=== PATIENT | male | born 1955 | race Caucasian/White ===

== ENCOUNTER 2017-03-31 19:20 | Emergency (ER) | payer OTHER ==
[~2017-03-31] VITALS: Ht 177.8 cm; Wt 84.1 kg
[~2017-03-31 19:20] MED LIST: ASPI81TA28 PO; ENAL1TAB29 PO; PRAV20TA PO
[2017-03-31 19:26] VITALS: TEMP 36.6; Ht 177.8 cm; Wt 84.1 kg
[2017-03-31] MEDS ORDERED: KETOROLAC TROMETHAMINE 30 MG/ML VIAL IV STA (19:37)
[2017-03-31] MEDS ORDERED: SODIUM CHLORIDE 0.9% 1000ML 1,000 ML IV STA (19:37)
[2017-03-31 19:44] VITALS: O2SAT 96
[2017-03-31 19:50] LABS: COMPLETE YES; EOS % 1.7 %; HEMATOCRIT 40.7 % (42-52); LYMPH % 36.3 %; LYMPH ABS # 1.67 K/uL (1.2-3.4); MEAN CELL VOLUME 94.7 fL (80-100); MEAN CORPUSCULAR HEMOGLOBIN 32.3 pg (25-34); MEAN CORPUSCULAR HGB CONC 34.2 g/dl (32-36); MONO % 7.8 %; NEUT % 54.2 %; PLATELET COUNT 188 K/uL (130-400)
--- NOTE | 2017-03-31 19:53 | EMERGENCY ROOM VISIT NOTE ---
History Report prepared by Joslyn: Perla Nelson Under the Supervision of: Dr. Rajan Kerns M.D. First contact with patient: 19:22 Chief Complaint: CHEST PAIN Stated Complaint: CHEST PAIN Nursing Triage Summary: cp "sharp radiate to forehead starting at 1530" baby asa at 1830, 3 doses senior living ntg . 1 ntg per als. no change in pain. denies cardiac hx. pain was in middle of chest "jaggy". on palpation most discomfort is left abd History of Present Illness The patient is a 61 year old male who presents to the Emergency Room with complaints of constant central chest pain for the past 4 hours. He describes his pain as sharp and rates it as a 5/10 in severity. It is not worsened with taking a deep breath. The patient is also complaining of shortness of breath, cough, and headache. He received aspirin and nitro at the senior living [facility] and did not have any relief of his chest pain. The patient denies any significant cardiac history. He also denies fever, nausea, vomiting, diarrhea, and pain radiating into his arm or jaw. He denies recent cold symptoms. Source of History: patient Onset: 4 hours [facility] Position: chest Symptom Intensity: 5/10 Quality: sharp Timing: constant Associated Symptoms: + headache, + cough, + SOB, No fevers, No nausea, No vomiting, No diarrhea Review of Systems See HPI for pertinent positives & negatives. A total of 10 systems reviewed and were otherwise negative. Past Medical & Surgical Medical Problems: (1) Diabetes (2) Hyperlipidemia Family History Patient reports no known family medical history. Social History Smoking Status: Current Every Day Smoker Housing Status: other (incarcerated) Occupation Status: unemployed Current/Historical Medications No Active Prescriptions or Reported Meds Allergies Uncoded Allergies: WOOL (Allergy, Unknown, UNKNOWN, 03/31/17) Physical Exam Vital Signs Date Time Temp Pulse Resp B/P (MAP) Pulse Ox O2 Delivery O2 Flow Rate FiO2 03/31/17 20:42 48 18 127/72 97 Room Air 03/31/17 19:44 96 Room Air 03/31/17 19:31 48 03/31/17 19:26 36.6 75 18 121/80 96 Room Air 03/31/17 19:19 94 Room Air Physical Exam GENERAL: Patient is a healthy-appearing well-nourished male. HEAD: Normocephalic atraumatic EYES: Ocular movements intact pupils equal and react to light OROPHARYNX mucous membranes are moist no exudates present no erythema or edema present NECK: Supple no nuchal rigidity CHEST: Good equal expansion. Exquisitely tender to the 9th and 10th left rib area. LUNGS: Clear and equal to auscultation CARDIAC: Normal S1 and S2 ABDOMEN: Soft nontender no guarding BACK: No CVA tenderness EXTREMITIES: No pain upon palpation normal muscle strength in all groups no clubbing cyanosis or edema NEURO: Patient is following commands and answering questions appropriately. Alert and oriented x3 Cranial Nerves 2-12 grossly intact Medical Decision & Procedures ER Provider Diagnostic Interpretation: Radiology results as stated below per my review and radiologist interpretation: CHEST ONE VIEW PORTABLE CLINICAL HISTORY: CHEST PAIN COMPARISON STUDY: No previous studies for comparison. FINDINGS: The bones soft tissues and hemidiaphragms are normal. The cardiomediastinal silhouette is normal. The lungs are clear. The pulmonary vasculature is normal. IMPRESSION: Negative chest. Electronically signed by: Rom Aguero M.D. 03/31/2017 8:04 PM Dictated Date/Time: 03/31/2017 8:04 PM Laboratory Results 03/31/17 19:30 Red Blood Count 4.30, Mean Corpuscular Volume 94.7, Mean Corpuscular Hemoglobin 32.3, Mean Corpuscular Hemoglobin Concent 34.2, Mean Platelet Volume 10.0, Neutrophils (%) (Auto) 54.2, Lymphocytes (%) (Auto) 36.3, Monocytes (%) (Auto) 7.8, Eosinophils (%) (Auto) 1.7, Basophils (%) (Auto) 0.0, Neutrophils # (Auto) 2.49, Lymphocytes # (Auto) 1.67, Monocytes # (Auto) 0.36, Eosinophils # (Auto) 0.08, Basophils # (Auto) 0.00 03/31/17 19:30 Test 03/31/17 19:30 White Blood Count 4.60 K/uL (4.8-10.8) Red Blood Count 4.30 M/uL (4.7-6.1) Hemoglobin 13.9 g/dL (14.0-18.0) Hematocrit 40.7 % (42-52) Mean Corpuscular Volume 94.7 fL (80-100) Mean Corpuscular Hemoglobin 32.3 pg (25-34) Mean Corpuscular Hemoglobin Concent 34.2 g/dl (32-36) Platelet Count 188 K/uL (130-400) Mean Platelet Volume 10.0 fL (7.4-10.4) Neutrophils (%) (Auto) 54.2 % Lymphocytes (%) (Auto) 36.3 % Monocytes (%) (Auto) 7.8 % Eosinophils (%) (Auto) 1.7 % Basophils (%) (Auto) 0.0 % Neutrophils # (Auto) 2.49 K/uL (1.4-6.5) Lymphocytes # (Auto) 1.67 K/uL (1.2-3.4) Monocytes # (Auto) 0.36 K/uL (0.11-0.59) Eosinophils # (Auto) 0.08 K/uL (0-0.5) Basophils # (Auto) 0.00 K/uL (0-0.2) RDW Standard Deviation 45.8 fL (36.4-46.3) RDW Coefficient of Variation 13.3 % (11.5-14.5) Immature Granulocyte % (Auto) 0.0 % Immature Granulocyte # (Auto) 0.00 K/uL (0.00-0.02) Anion Gap 10.0 mmol/L (3-11) Est Creatinine Clear Calc Drug Dose 82.1 ml/min Estimated GFR () 95.1 Estimated GFR (Non- 82.0 BUN/Creatinine Ratio 16.9 (10-20) Calcium Level 8.8 mg/dl (8.5-10.1) Total Bilirubin 0.2 mg/dl (0.2-1) Direct Bilirubin < 0.1 mg/dl (0-0.2) Aspartate Amino Transf (AST/SGOT) 19 U/L (15-37) Alanine Aminotransferase (ALT/SGPT) 25 U/L (12-78) Alkaline Phosphatase 58 U/L (45-117) Total Creatine Kinase 135 U/L (39-308) Creatine Kinase MB 1.0 ng/ml (0.5-3.6) Creatine Kinase MB Ratio 0.7 (0-3.0) Troponin I < 0.015 ng/ml (0-0.045) Total Protein 6.7 gm/dl (6.4-8.2) Albumin 3.9 gm/dl (3.4-5.0) Lipase 386 U/L (73-393) Labs reviewed by ED physician. Medications Administered Medications (Trade) Dose Ordered Sig/Leah Route Start Time Stop Time Status Last Admin Dose Admin Sodium Chloride 1,000 ml @ 999 mls/hr Q1H1M STAT IV 03/31/17 19:37 03/31/17 20:37 DC 03/31/17 19:52 999 MLS/HR Ketorolac Tromethamine (Toradol Inj) 30 mg NOW STAT IV 03/31/17 19:37 03/31/17 19:38 DC 03/31/17 19:52 30 MG ECG Indication: chest pain Rate (beats per minute): 47 Rhythm: sinus bradycardia Findings: no acute ischemic change, no ectopy ED Course 1921: Past medical records reviewed. The patient was evaluated in room B6. A complete history and physical examination was performed. 1936: Toradol 30 mg IV, NSS 1000 ml @ 999 mls/hr IV 2031: I reassessed the patient at this time. He is feeling better and resting comfortably. He is no longer having pain. I discussed the results and treatment plan with the patient. I answered all pertaining questions that he had. He expressed understanding and verbalized agreement. The patient will be discharged back to the senior living. Medical Decision Differential diagnosis: Etiologies such as cardiac ischemia, aortic dissection, pulmonary embolism, pneumonia, pneumothorax, musculoskeletal, infections, pericarditis, myocarditis , esophageal rupture, gastrointestinal, as well as others were entertained. Medication Reconciliation: I attest that I have personally reviewed the patient' s current medication list. Blood Pressure Screening: Patient was found to have normal blood pressure on screening and does not require follow up. This is a 61-year-old male who presents to the emergency department complaining of left chest wall pain. The patient is exquisitely tender to the left chest wall and I do believe his pain is coming from his ribs. In addition the patient was given nitroglycerin with no effect of the chest pain. He also has a normal EKG as well as CK-MB and troponin fraction. Based on these findings I do believe that the patient can return back to senior living where he can be further evaluated by cardiology as an outpatient. Patient and caretakers were in agreement with the treatment plan. Impression Primary Impression: Chest wall pain Scribe Attestation The scribe's documentation has been prepared under my direction and personally reviewed by me in its entirety. I confirm that the note above accurately reflects all work, treatment, procedures, and medical decision making performed by me. Departure Information Dispostion Home / Self-Care Prescriptions No Active Prescriptions or Reported Meds Referrals Devin PAEZ (PCP) Forms HOME CARE DOCUMENTATION FORM, IMPORTANT VISIT INFORMATION Patient Instructions Chest Pain - [facility], My [facility] Additional Instructions Follow up with Dr Mathis's office You have been examined and treated today on an emergency basis only. This is not a substitute for, or an effort to provide, complete comprehensive medical care. It is impossible to recognize and treat all injuries or illnesses in a single emergency department visit. It is therefore important that you follow up closely with your PCP. Call as soon as possible for an appointment. Thank you for your time and consideration. I look forward to speaking with you again soon. Please don't hesitate to call us if you have any questions.
--- NOTE | 2017-03-31 20:05 | DIAGNOSTIC IMAGING REPORT ---
CHEST ONE VIEW PORTABLE CLINICAL HISTORY: CHEST PAIN COMPARISON STUDY: No previous studies for comparison. FINDINGS: The bones soft tissues and hemidiaphragms are normal. The cardiomediastinal silhouette is normal. The lungs are clear. The pulmonary vasculature is normal. IMPRESSION: Negative chest. Electronically signed by: Rom Aguero M.D. 03/31/2017 8:04 PM Dictated Date/Time: 03/31/2017 8:04 PM
[2017-03-31 20:20] LABS: ALT/SGPT 25 U/L (12-78); BLOOD UREA NITROGEN 17 mg/dl (7-18); BUN/CREATININE RATIO 16.9 (10-20); CALCIUM 8.8 mg/dl (8.5-10.1); CARBON DIOXIDE 24 mmol/L (21-32); CHLORIDE 111 mmol/L (98-107); GLUCOSE 104 mg/dl (70-99); POTASSIUM 4.2 mmol/L (3.5-5.1); SODIUM 145 mmol/L (136-145)
[2017-03-31 20:25] LABS: ALKALINE PHOSPHATASE 58 U/L (45-117); AST/SGOT 19 U/L (15-37); CKMB/CK RATIO 0.7 (0-3.0)
[2017-03-31 20:42] VITALS: BP 127/72; PULSE 48; O2SAT 97
== END 2017-03-31 20:52 ==
LOC: EDBD 19:20 → C.EDB 19:20
DX: R07.89 Other chest pain (principal); E11.9 Type 2 diabetes mellitus without complications; E78.5 Hyperlipidemia, unspecified; F17.210 Nicotine dependence, cigarettes, uncomplicated; R51 Headache; R05 Cough

== ENCOUNTER 2020-05-06 11:10 | Inpatient (IN) ==
[2020-05-06] MEDS ORDERED: SODIUM CHLORIDE 0.9% 1000ML 1,000 ML IV ONE ×2 (11:30→12:11)
--- NOTE | 2020-05-06 11:30 | Emergency Department Note ---
Impression & Plan Catheter-associated urinary tract infection, Abdominal pain, Fever ED Provider Note NAME: VANDANA [id number] MANOJ AGE: 64 SEX: M : 1955 ARRIVES VIA: Ambulance INFORMANT: Patient, ED PROVIDER(S): Nicolas Stover DO CHIEF COMPLAINT: Abdominal pain HPI: The patient is a 64-year-old male who presented to the emergency department for an evaluation of abdominal pain. The patient describes diffuse abdominal pain which started yesterday. He was noted to have a low-grade fever today. He complains of chest pain. He states the abdominal pain radiates to his back. He denies having any vomiting but does have nausea. He denies having any lower extremity pain. He states that he has had similar symptoms in the past with very bad urinary tract infections. He states that his Gutierrez catheter was recently changed. He denies having any headaches. He denies having any cough. He has had no exposure of COVID-19 but he presents to the emergency department from [facility]. ROS: See above HPI for pertinent positives & negatives. A total of 10 systems reviewed and were otherwise negative. PAST MEDICAL HISTORY: See Below PAST SURGICAL HISTORY: See Below FAMILY HISTORY: See Below SOCIAL HISTORY: See Below HOME MEDICATIONS: See Below ALLERGIES: See Below VITALS: See Below PHYSICAL EXAMINATION: GENERAL: The patient is awake and alert. He is somewhat anxious appearing and appears uncomfortable. EYES: The conjunctivae are clear. The pupils are round and reactive. EARS, NOSE, MOUTH AND THROAT: The nose is without any evidence of any deformity. NECK: The neck is nontender and supple. RESPIRATORY: Normal respiratory effort is noted there is no evidence of wheezing rhonchi or rales CARDIOVASCULAR: Regular rate and rhythm noted there no murmurs rubs or gallops normal S1 normal S2. GASTROINTESTINAL: The abdomen is moderately distended and diffusely tender. There is suprapubic tenderness to palpation. BACK: No midline tenderness or or step-off noted range of motion in flexion extension as well as rotation no signs of muscle spasm noted MUSCULOSKELETAL/EXTREMITIES: There is no evidence of gross deformity full range of motion is noted in the hips and shoulders. SKIN: Trace pedal edema was noted bilaterally. NEUROLOGIC: Patient is awake alert and oriented x3 strength is symmetric patellar reflexes are 2+ bilaterally MEDICAL DECISION MAKING: The patient is a 64-year-old male who presented to the emergency department for an evaluation of abdominal pain. The patient has a chronic indwelling Gutierrez catheter. He had some urine draining reportedly but bladder scan did show that the patient was in urinary retention. When the catheter was replaced he did have significant urinary retention. Urinalysis appeared to be consistent with infection. A review the patient's previous urine culture does show he grew out Pseudomonas with intermittent sensitivities to quinolones. For this reason I feel he may require IV antibiotics. He was treated with IV Zosyn in the emergency department. He was treated with IV fluids and pain medication. I discussed the patient's laboratory and radiographic studies with him. I also discussed his case with the on-call [facility] [place] Divisionist group. They have agreed to evaluate the patient in the emergency department for further management and disposition. Triage Nursing notes reviewed. Prior medical records reviewed Vital Signs: reviewed and remarkable for fever Differential diagnosis: Appendicitis, testicular torsion, infections, diverticulitis, UTI, obstruction, mesenteric ischemia, aortic pathology, inflammatory bowel disease, renal colic, PUD, pancreatitis, biliary pathology, hernia, volvulus, constipation, as well as other pathologies. ER treatment provided: See below Diagnostics interpreted by me: ECG: EKG was obtained in the emergency department. My interpretation is normal sinus rhythm at 97 bpm. There is no ectopy. There is no acute ST segment abnormalities. There is an increase in the ventricular rate otherwise no change from November [id number]. Cardiac Monitoring: An order was placed for continuous cardiac monitoring. The monitor shows a rate of 88 with sinus rhythm. Laboratory studies: As stated above and show below. Imaging studies: See below Consultation(s): I discussed this case with Dr. Najera. She was on-call for the [facility] hospitalist group. She will evaluate the patient in the emergency department for further management and disposition. Past Med/Surg History Medical History (Updated 05/06/20 @ 17:07 by Nicolas Stover DO) Chest pain (Acute) Diabetes (Chronic) HTN (hypertension), benign Hyperlipidemia (Chronic) Major depressive disorder Pulmonary nodules Urinary retention Surgical History No pertinent past surgical history Family History Sister Diabetes Hypertension Brother Hypertension Father Nephrolithiasis Lung disease Other No pertinent family history in first degree relatives Social History Smoking Status: Former smoker Preferred Language: Tanzanian Feels Safe at Home: Yes Allergies Allergies Allergy/AdvReac Type Severity Reaction Status Date / Time WOOL Allergy Unknown UNKNOWN Uncoded 05/06/20 11:53 Home Meds Home Medications Medication Instructions Recorded Confirmed duloxetine 30 mg PO QAM 12/17/18 05/06/20 duloxetine 60 mg PO QAM 12/17/18 05/06/20 finasteride 5 mg PO DAILY 11/11/19 05/06/20 lisinopril 10 mg PO DAILY 05/06/20 05/06/20 Results & Data (ED) Vital Signs Vital Signs - 24 hr 05/06/20 11:15 05/06/20 11:18 05/06/20 11:19 Temperature 38.0 C H Temperature Source Oral Pulse Rate 96 H 100 H 97 H Pulse Rate from SpO2 Sensor 101 H 96 H Pulse Rhythm Regular Pulse Strength Normal Respiratory Rate 31 H 21 26 H Respiratory Effort / Characteristics Non-Labored Spontaneous Respiratory Depth Normal Respiratory Pattern Regular Blood Pressure 113/68 116/86 Blood Pressure Mean 83 99 Blood Pressure Position Lying Pulse Oximetry 97 96 97 Oxygen Delivery Method Room Air Room Air Room Air Sepsis Recent Fever Within 48 Hours Yes Sepsis New/Unexplained Change in Mental Status No Sepsis Action Taken by Nursing No Action Required 05/06/20 11:20 05/06/20 11:30 05/06/20 11:38 Temperature Temperature Source Pulse Rate 106 H 101 H 96 H Pulse Rate from SpO2 Sensor 104 H 102 H 97 H Pulse Rhythm Pulse Strength Respiratory Rate 22 24 27 H Respiratory Effort / Characteristics Respiratory Depth Respiratory Pattern Blood Pressure 133/80 Blood Pressure Mean 90 Blood Pressure Position Pulse Oximetry 96 95 94 Oxygen Delivery Method Room Air Room Air Room Air Sepsis Recent Fever Within 48 Hours Sepsis New/Unexplained Change in Mental Status Sepsis Action Taken by Nursing 05/06/20 11:40 05/06/20 11:45 05/06/20 11:50 Temperature Temperature Source Pulse Rate 94 H 96 H 95 H Pulse Rate from SpO2 Sensor 94 H 96 H 95 H Pulse Rhythm Pulse Strength Respiratory Rate 22 24 23 Respiratory Effort / Characteristics Respiratory Depth Respiratory Pattern Blood Pressure 145/80 H Blood Pressure Mean 96 Blood Pressure Position Pulse Oximetry 96 94 94 Oxygen Delivery Method Room Air Room Air Room Air Sepsis Recent Fever Within 48 Hours Sepsis New/Unexplained Change in Mental Status Sepsis Action Taken by Nursing 05/06/20 12:00 05/06/20 12:01 05/06/20 12:10 Temperature Temperature Source Pulse Rate 91 H 92 H 91 H Pulse Rate from SpO2 Sensor 91 H 92 H 92 H Pulse Rhythm Pulse Strength Respiratory Rate 24 24 23 Respiratory Effort / Characteristics Respiratory Depth Respiratory Pattern Blood Pressure 138/73 Blood Pressure Mean 91 Blood Pressure Position Pulse Oximetry 94 95 94 Oxygen Delivery Method Room Air Room Air Room Air Sepsis Recent Fever Within 48 Hours Sepsis New/Unexplained Change in Mental Status Sepsis Action Taken by Nursing 05/06/20 12:15 05/06/20 12:20 05/06/20 12:30 Temperature Temperature Source Pulse Rate 92 H 89 90 Pulse Rate from SpO2 Sensor 92 H 89 90 Pulse Rhythm Pulse Strength Respiratory Rate 22 21 19 Respiratory Effort / Characteristics Respiratory Depth Respiratory Pattern Blood Pressure 140/70 127/74 Blood Pressure Mean 84 79 Blood Pressure Position Pulse Oximetry 95 94 93 Oxygen Delivery Method Room Air Room Air Room Air Sepsis Recent Fever Within 48 Hours Sepsis New/Unexplained Change in Mental Status Sepsis Action Taken by Nursing 05/06/20 12:31 05/06/20 12:52 05/06/20 13:00 Temperature Temperature Source Pulse Rate 91 H 89 91 H Pulse Rate from SpO2 Sensor 92 H 92 H Pulse Rhythm Pulse Strength Respiratory Rate 19 17 19 Respiratory Effort / Characteristics Respiratory Depth Respiratory Pattern Blood Pressure 117/66 Blood Pressure Mean 81 Blood Pressure Position Pulse Oximetry 93 93 Oxygen Delivery Method Room Air Room Air Room Air Sepsis Recent Fever Within 48 Hours Sepsis New/Unexplained Change in Mental Status Sepsis Action Taken by Nursing 05/06/20 13:01 05/06/20 13:10 05/06/20 13:15 Temperature Temperature Source Pulse Rate 92 H 89 91 H Pulse Rate from SpO2 Sensor 92 H 89 91 H Pulse Rhythm Pulse Strength Respiratory Rate 19 18 20 Respiratory Effort / Characteristics Respiratory Depth Respiratory Pattern Blood Pressure 121/65 Blood Pressure Mean 84 Blood Pressure Position Pulse Oximetry 93 93 94 Oxygen Delivery Method Room Air Room Air Room Air Sepsis Recent Fever Within 48 Hours Sepsis New/Unexplained Change in Mental Status Sepsis Action Taken by Nursing 05/06/20 13:20 05/06/20 13:30 05/06/20 13:31 Temperature Temperature Source Pulse Rate 88 89 88 Pulse Rate from SpO2 Sensor 88 89 88 Pulse Rhythm Pulse Strength Respiratory Rate 17 16 16 Respiratory Effort / Characteristics Respiratory Depth Respiratory Pattern Blood Pressure 108/77 Blood Pressure Mean 97 Blood Pressure Position Pulse Oximetry 94 94 93 Oxygen Delivery Method Room Air Room Air Room Air Sepsis Recent Fever Within 48 Hours Sepsis New/Unexplained Change in Mental Status Sepsis Action Taken by Nursing 05/06/20 13:40 05/06/20 13:45 05/06/20 13:50 Temperature Temperature Source Pulse Rate 85 84 89 Pulse Rate from SpO2 Sensor Pulse Rhythm Pulse Strength Respiratory Rate 17 18 21 Respiratory Effort / Characteristics Respiratory Depth Respiratory Pattern Blood Pressure 114/66 Blood Pressure Mean 80 Blood Pressure Position Pulse Oximetry Oxygen Delivery Method Room Air Room Air Room Air Sepsis Recent Fever Within 48 Hours Sepsis New/Unexplained Change in Mental Status Sepsis Action Taken by Nursing 05/06/20 14:00 05/06/20 14:01 05/06/20 14:10 Temperature Temperature Source Pulse Rate 84 85 83 Pulse Rate from SpO2 Sensor 88 83 83 Pulse Rhythm Pulse Strength Respiratory Rate 19 18 16 Respiratory Effort / Characteristics Respiratory Depth Respiratory Pattern Blood Pressure 101/68 Blood Pressure Mean 82 Blood Pressure Position Pulse Oximetry 95 Oxygen Delivery Method Room Air Room Air Room Air Sepsis Recent Fever Within 48 Hours Sepsis New/Unexplained Change in Mental Status Sepsis Action Taken by Nursing 05/06/20 14:15 05/06/20 14:20 05/06/20 14:30 Temperature Temperature Source Pulse Rate 87 83 82 Pulse Rate from SpO2 Sensor 87 83 83 Pulse Rhythm Pulse Strength Respiratory Rate 15 15 15 Respiratory Effort / Characteristics Respiratory Depth Respiratory Pattern Blood Pressure 102/69 108/68 Blood Pressure Mean 83 90 Blood Pressure Position Pulse Oximetry 95 94 94 Oxygen Delivery Method Room Air Room Air Room Air Sepsis Recent Fever Within 48 Hours Sepsis New/Unexplained Change in Mental Status Sepsis Action Taken by Nursing 05/06/20 14:31 05/06/20 14:40 05/06/20 14:45 Temperature Temperature Source Pulse Rate 83 85 85 Pulse Rate from SpO2 Sensor 84 86 86 Pulse Rhythm Pulse Strength Respiratory Rate 14 15 17 Respiratory Effort / Characteristics Respiratory Depth Respiratory Pattern Blood Pressure 119/75 Blood Pressure Mean 94 Blood Pressure Position Pulse Oximetry 95 93 94 Oxygen Delivery Method Room Air Room Air Room Air Sepsis Recent Fever Within 48 Hours Sepsis New/Unexplained Change in Mental Status Sepsis Action Taken by Nursing 05/06/20 14:50 05/06/20 15:00 05/06/20 15:01 Temperature Temperature Source Pulse Rate 89 89 93 H Pulse Rate from SpO2 Sensor 90 89 100 H Pulse Rhythm Pulse Strength Respiratory Rate 27 H 15 17 Respiratory Effort / Characteristics Respiratory Depth Respiratory Pattern Blood Pressure 116/70 Blood Pressure Mean 82 Blood Pressure Position Pulse Oximetry 94 94 94 Oxygen Delivery Method Room Air Room Air Room Air Sepsis Recent Fever Within 48 Hours Sepsis New/Unexplained Change in Mental Status Sepsis Action Taken by Nursing 05/06/20 15:10 05/06/20 15:15 05/06/20 15:35 Temperature Temperature Source Pulse Rate 89 93 H 84 Pulse Rate from SpO2 Sensor 89 93 H Pulse Rhythm Pulse Strength Respiratory Rate 16 21 21 Respiratory Effort / Characteristics Respiratory Depth Respiratory Pattern Blood Pressure 125/71 Blood Pressure Mean 90 Blood Pressure Position Pulse Oximetry 95 94 Oxygen Delivery Method Room Air Room Air Room Air Sepsis Recent Fever Within 48 Hours Sepsis New/Unexplained Change in Mental Status Sepsis Action Taken by Nursing 05/06/20 15:37 05/06/20 15:40 05/06/20 15:45 Temperature Temperature Source Pulse Rate 78 85 77 Pulse Rate from SpO2 Sensor 78 84 78 Pulse Rhythm Pulse Strength Respiratory Rate 21 20 16 Respiratory Effort / Characteristics Respiratory Depth Respiratory Pattern Blood Pressure 117/74 103/68 Blood Pressure Mean 82 83 Blood Pressure Position Pulse Oximetry 96 94 93 Oxygen Delivery Method Room Air Room Air Room Air Sepsis Recent Fever Within 48 Hours Sepsis New/Unexplained Change in Mental Status Sepsis Action Taken by Nursing 05/06/20 15:50 05/06/20 16:00 05/06/20 16:01 Temperature Temperature Source Pulse Rate 81 76 79 Pulse Rate from SpO2 Sensor 81 75 80 Pulse Rhythm Pulse Strength Respiratory Rate 17 17 15 Respiratory Effort / Characteristics Respiratory Depth Respiratory Pattern Blood Pressure 128/70 Blood Pressure Mean 78 Blood Pressure Position Pulse Oximetry 94 94 94 Oxygen Delivery Method Room Air Room Air Room Air Sepsis Recent Fever Within 48 Hours Sepsis New/Unexplained Change in Mental Status Sepsis Action Taken by Nursing 05/06/20 16:10 05/06/20 16:15 05/06/20 16:20 Temperature Temperature Source Pulse Rate 79 79 78 Pulse Rate from SpO2 Sensor 83 79 77 Pulse Rhythm Pulse Strength Respiratory Rate 15 15 19 Respiratory Effort / Characteristics Respiratory Depth Respiratory Pattern Blood Pressure 114/75 Blood Pressure Mean 96 Blood Pressure Position Pulse Oximetry 96 94 94 Oxygen Delivery Method Room Air Room Air Room Air Sepsis Recent Fever Within 48 Hours Sepsis New/Unexplained Change in Mental Status Sepsis Action Taken by Nursing 05/06/20 16:30 05/06/20 16:31 05/06/20 16:40 Temperature Temperature Source Pulse Rate 76 79 79 Pulse Rate from SpO2 Sensor 78 79 79 Pulse Rhythm Pulse Strength Respiratory Rate 15 16 14 Respiratory Effort / Characteristics Respiratory Depth Respiratory Pattern Blood Pressure 120/68 Blood Pressure Mean 82 Blood Pressure Position Pulse Oximetry 94 95 95 Oxygen Delivery Method Room Air Room Air Room Air Sepsis Recent Fever Within 48 Hours Sepsis New/Unexplained Change in Mental Status Sepsis Action Taken by Nursing 05/06/20 16:45 05/06/20 16:48 05/06/20 16:50 Temperature Temperature Source Pulse Rate 78 88 Pulse Rate from SpO2 Sensor 78 87 Pulse Rhythm Pulse Strength Respiratory Rate 15 19 Respiratory Effort / Characteristics Respiratory Depth Respiratory Pattern Blood Pressure 112/69 Blood Pressure Mean 81 Blood Pressure Position Pulse Oximetry 95 91 Oxygen Delivery Method Room Air Room Air Room Air Sepsis Recent Fever Within 48 Hours Sepsis New/Unexplained Change in Mental Status Sepsis Action Taken by [facility] Medications Current Medication List: was personally reviewed by me Laboratory Data Attestation: I reviewed the patient's lab results. Result diagrams: 05/06/20 11:32 05/06/20 11:32 Lab Results 05/06/20 05/06/20 05/06/20 Range/Units 11:32 11:32 11:32 WBC (4.8-10.8) K/uL RBC (4.7-6.1) M/uL Hgb (14.0-18.0) g/dL Hct (42-52) % MCV (80-100) fL MCH (25-34) pg MCHC (32-36) g/dL RDW Std Deviation (36.4-46.3) fL RDW Coeff of Osmin (11.5-14.5) % Plt Count (130-400) K/uL MPV (7.4-10.4) fL Immature Gran % (Auto) % Neut % (Auto) % Lymph % (Auto) % King % (Auto) % Eos % (Auto) % Baso % (Auto) % Neut # (Auto) (1.4-6.5) K/uL Lymph # (Auto) (1.2-3.4) K/uL King # (Auto) (0.11-0.59) K/uL Eos # (Auto) (0-0.5) K/uL Baso # (Auto) (0-0.2) K/uL Immature Gran # (Auto) (0.00-0.02) K/uL ESR 16 H (0-14) mm/hr PT (9.0-12.0) Seconds INR (0.9-1.1) APTT (21.0-31.0) Seconds PTT Ratio Sodium 130 L (136-145) mmol/L Potassium 4.3 (3.5-5.1) mmol/L Chloride 100 (98-107) mmol/L Carbon Dioxide 21 (21-32) mmol/L Anion Gap 9.0 (3-11) BUN 17 (7-18) mg/dl Creatinine 1.83 H (0.6-1.4) mg/dl Est Cr Clr Drug Dosing 51.3 ml/min Est GFR ( Amer) 44.8 Est GFR (Non-Af Amer) 38.7 BUN/Creatinine Ratio 9.5 L (10-20) Glucose 117 H (70-99) mg/dl Lactate (0.4-2.0) mmol/L Calcium 8.8 (8.5-10.1) mg/dl Magnesium 1.9 (1.8-2.4) mg/dl Total Bilirubin 0.7 (0.2-1) mg/dl AST 18 (15-37) U/L ALT 23 (12-78) U/L Alkaline Phosphatase 67 (45-117) U/L Troponin I < 0.015 (0-0.045) ng/ml C-Reactive Protein 5.37 H (0-0.29) mg/dl Total Protein 7.4 (6.4-8.2) gm/dl Albumin 3.5 (3.4-5.0) gm/dl Globulin 3.9 (2.5-4.0) gm/dl Albumin/Globulin Ratio 0.9 (0.9-2) Procalcitonin 0.36 (0-0.5) ng/ml Urine Color Urine Appearance (Clear) Urine pH (4.5-7.5) Ur Specific Randolph (1.000-1.030) Urine Protein (Negative) Urine Glucose (UA) (Negative) Urine Ketones (Negative) Urine Blood (Negative) Urine Nitrite (Negative) Urine Bilirubin (Negative) Urine Urobilinogen (Negative) Ur Leukocyte Esterase (Negative) Urine WBC (Auto) (0-5) /hpf Urine RBC (Auto) (0-4) /hpf U Hyaline Cast (Auto) (0-5) /lpf U Epithel Cells (Auto) (0-5) /lpf Urine Bacteria (Auto) (Negative) COVID-19 PCR (Negative) 05/06/20 05/06/20 05/06/20 Range/Units 11:32 11:32 11:32 WBC 9.67 (4.8-10.8) K/uL RBC 3.96 L (4.7-6.1) M/uL Hgb 12.6 L (14.0-18.0) g/dL Hct 36.8 L (42-52) % MCV 92.9 (80-100) fL MCH 31.8 (25-34) pg MCHC 34.2 (32-36) g/dL RDW Std Deviation 46.3 (36.4-46.3) fL RDW Coeff of Osmin 13.6 (11.5-14.5) % Plt Count 213 (130-400) K/uL MPV 8.9 (7.4-10.4) fL Immature Gran % (Auto) 0.2 % Neut % (Auto) 95.4 % Lymph % (Auto) 3.3 % King % (Auto) 1.0 % Eos % (Auto) 0.0 % Baso % (Auto) 0.1 % Neut # (Auto) 9.22 H (1.4-6.5) K/uL Lymph # (Auto) 0.32 L (1.2-3.4) K/uL King # (Auto) 0.10 L (0.11-0.59) K/uL Eos # (Auto) 0.00 (0-0.5) K/uL Baso # (Auto) 0.01 (0-0.2) K/uL Immature Gran # (Auto) 0.02 (0.00-0.02) K/uL ESR (0-14) mm/hr PT 10.5 (9.0-12.0) Seconds INR 1.0 (0.9-1.1) APTT 25.0 (21.0-31.0) Seconds PTT Ratio 0.9 Sodium (136-145) mmol/L Potassium (3.5-5.1) mmol/L Chloride (98-107) mmol/L Carbon Dioxide (21-32) mmol/L Anion Gap (3-11) BUN (7-18) mg/dl Creatinine (0.6-1.4) mg/dl Est Cr Clr Drug Dosing ml/min Est GFR ( Amer) Est GFR (Non-Af Amer) BUN/Creatinine Ratio (10-20) Glucose (70-99) mg/dl Lactate 1.8 (0.4-2.0) mmol/L Calcium (8.5-10.1) mg/dl Magnesium (1.8-2.4) mg/dl Total Bilirubin (0.2-1) mg/dl AST (15-37) U/L ALT (12-78) U/L Alkaline Phosphatase (45-117) U/L Troponin I (0-0.045) ng/ml C-Reactive Protein (0-0.29) mg/dl Total Protein (6.4-8.2) gm/dl Albumin (3.4-5.0) gm/dl Globulin (2.5-4.0) gm/dl Albumin/Globulin Ratio (0.9-2) Procalcitonin (0-0.5) ng/ml Urine Color Urine Appearance (Clear) Urine pH (4.5-7.5) Ur Specific Randolph (1.000-1.030) Urine Protein (Negative) Urine Glucose (UA) (Negative) Urine Ketones (Negative) Urine Blood (Negative) Urine Nitrite (Negative) Urine Bilirubin (Negative) Urine Urobilinogen (Negative) Ur Leukocyte Esterase (Negative) Urine WBC (Auto) (0-5) /hpf Urine RBC (Auto) (0-4) /hpf U Hyaline Cast (Auto) (0-5) /lpf U Epithel Cells (Auto) (0-5) /lpf Urine Bacteria (Auto) (Negative) COVID-19 PCR (Negative) 05/06/20 05/06/20 Range/Units 11:35 13:35 WBC (4.8-10.8) K/uL RBC (4.7-6.1) M/uL Hgb (14.0-18.0) g/dL Hct (42-52) % MCV (80-100) fL MCH (25-34) pg MCHC (32-36) g/dL RDW Std Deviation (36.4-46.3) fL RDW Coeff of Osmin (11.5-14.5) % Plt Count (130-400) K/uL MPV (7.4-10.4) fL Immature Gran % (Auto) % Neut % (Auto) % Lymph % (Auto) % King % (Auto) % Eos % (Auto) % Baso % (Auto) % Neut # (Auto) (1.4-6.5) K/uL Lymph # (Auto) (1.2-3.4) K/uL King # (Auto) (0.11-0.59) K/uL Eos # (Auto) (0-0.5) K/uL Baso # (Auto) (0-0.2) K/uL Immature Gran # (Auto) (0.00-0.02) K/uL ESR (0-14) mm/hr PT (9.0-12.0) Seconds INR (0.9-1.1) APTT (21.0-31.0) Seconds PTT Ratio Sodium (136-145) mmol/L Potassium (3.5-5.1) mmol/L Chloride (98-107) mmol/L Carbon Dioxide (21-32) mmol/L Anion Gap (3-11) BUN (7-18) mg/dl Creatinine (0.6-1.4) mg/dl Est Cr Clr Drug Dosing ml/min Est GFR ( Amer) Est GFR (Non-Af Amer) BUN/Creatinine Ratio (10-20) Glucose (70-99) mg/dl Lactate (0.4-2.0) mmol/L Calcium (8.5-10.1) mg/dl Magnesium (1.8-2.4) mg/dl Total Bilirubin (0.2-1) mg/dl AST (15-37) U/L ALT (12-78) U/L Alkaline Phosphatase (45-117) U/L Troponin I (0-0.045) ng/ml C-Reactive Protein (0-0.29) mg/dl Total Protein (6.4-8.2) gm/dl Albumin (3.4-5.0) gm/dl Globulin (2.5-4.0) gm/dl Albumin/Globulin Ratio (0.9-2) Procalcitonin (0-0.5) ng/ml Urine Color Yellow Urine Appearance Cloudy A (Clear) Urine pH 6.5 (4.5-7.5) Ur Specific Randolph 1.011 (1.000-1.030) Urine Protein Negative (Negative) Urine Glucose (UA) Negative (Negative) Urine Ketones Negative (Negative) Urine Blood 3+ H (Negative) Urine Nitrite Negative (Negative) Urine Bilirubin Negative (Negative) Urine Urobilinogen Negative (Negative) Ur Leukocyte Esterase 2+ H (Negative) Urine WBC (Auto) >30 H (0-5) /hpf Urine RBC (Auto) >30 H (0-4) /hpf U Hyaline Cast (Auto) 1-5 (0-5) /lpf U Epithel Cells (Auto) 0-5 (0-5) /lpf Urine Bacteria (Auto) Negative (Negative) COVID-19 PCR NEGATIVE (Negative) Administered Medications Fentanyl Citrate (Fentanyl Citrate) 50 mcg IV Q15M PRN PRN Reason: Pain Stop: 05/20/20 12:09 Last Admin: 05/06/20 16:52 Dose: 50 mcg Documented by: [id number] Admin: 05/06/20 12:15 Dose: 50 mcg Documented by: [id number] Piperacillin Sod/Tazobactam (Sod 3.375 gm/ Dextrose) 115 mls @ 28.75 mls/hr IV Q8H [facility]; Protocol Stop: 05/16/20 14:14 Last Admin: 05/06/20 16:53 Dose: 28.8 mls/hr Documented by: [id number] Discontinued Medications Sodium Chloride (Nss 1000ml) 1,000 mls @ 999 mls/hr IV .Q1H1M ONE Stop: 05/06/20 12:30 Last Infusion: 05/06/20 12:47 Dose: 0 mls/hr Documented by: [id number] Admin: 05/06/20 11:54 Dose: 999 mls/hr Documented by: [id number] Piperacillin Sod/Tazobactam Sod (Zosyn) 4.5 gm in 120 mls @ 240 mls/hr IV NOW ONE Stop: 05/06/20 12:39 Last Infusion: 05/06/20 12:47 Dose: 0 mls/hr Documented by: [id number] Admin: 05/06/20 12:15 Dose: 240 mls/hr Documented by: [id number] Sodium Chloride (Nss 1000ml) 1,000 mls @ 999 mls/hr IV .Q1H1M ONE Stop: 05/06/20 13:11 Last Infusion: 05/06/20 13:17 Dose: 0 mls/hr Documented by: [id number] Admin: 05/06/20 12:15 Dose: 999 mls/hr Documented by: [id number] Ioversol (Optiray 320 100ml) 92 ml IV ONCE ONE Stop: 05/06/20 12:48 Last Admin: 05/06/20 12:47 Dose: 92 ml Documented by: [id number] Ondansetron HCl (Zofran) 4 mg IV NOW STA Stop: 05/06/20 12:11 Last Admin: 05/06/20 12:15 Dose: 4 mg Documented by: [id number] Imaging Data Radiologist's Impression: CT abd pelvis IV con only CLINICAL HISTORY: Abdominal pain and fever COMPARISON STUDY: November 11, 2019 TECHNIQUE: The patient was scanned in a dynamic helical fashion during intravenous administration of 94 cc of Optiray 320. A dose lowering technique was utilized adhering to the principles of ALARA. CT DOSE: 894.85 mGy.cm FINDINGS: Lower chest: There is respiratory motion artifact. There are minor dependent atelectatic changes. Liver: The contrast-enhanced liver is normal in size, contour, and attenuation. There is no intrahepatic biliary ductal dilatation. The hepatic veins and portal veins are patent. Gallbladder: Unremarkable. Spleen: Normal in size and attenuation. Pancreas: Unremarkable. Adrenal glands: Unremarkable. Kidneys: There is persistent mild bilateral hydronephrosis. There is a 12 mm right renal cyst. Kidneys are lobulated in contour. Bowel: There are no transition zones to indicate bowel obstruction. There are fluid-filled colonic and small bowel loops with multiple air-fluid levels. Findings are consistent with a diarrheal state as would be seen in an enteritis. There is no evidence of acute diverticulitis. The appendix appears normal. Peritoneum: There is no intraperitoneal free air or abdominal ascites. There is a fat-containing umbilical hernia. There is a fat-containing right inguinal hernia. Vasculature: The abdominal aorta is normal in course and caliber. Adenopathy: None. Pelvic viscera: There is an indwelling Gutierrez catheter. There is a markedly thick-walled bladder. A cystitis cannot be excluded. There is mild prostatic e nlargement. Skeletal structures: No destructive osseous lesions are seen. IMPRESSION: 1. No evidence of bowel obstruction. No evidence of free air 2. Fluid-filled colonic and small bowel loops with scattered air-fluid levels. The findings are suggestive of a diarrheal state as would be seen in an enteritis 3. No evidence of acute diverticulitis. No evidence of acute appendicitis 4. Fat-containing umbilical hernia, an enlarging fat-containing right inguinal hernia 5. Mild bilateral hydronephrosis similar to the preceding study. 6. Indwelling Gutierrez catheter. Marked bladder wall thickening. A cystitis cannot be excluded ACT 112: Negative or not required by law. Electronically signed by: Junito Alarcon M.D. 05/06/2020 1:07 PM Dictated: 05/06/20 1257 Transcribed: 05/06/20 1305 XR chest 1V portable CLINICAL HISTORY: SEPSIS COMPARISON STUDY: Chest radiograph November 11, 2019 FINDINGS: Lung volumes are mildly diminished. There is no pneumothorax or pleural effusion. Minimal left lower lung opacity favors atelectasis. Cardiomediastinal silhouette is normal. There is no evidence for pulmonary edema. IMPRESSION: Low lung volumes with linear left basilar opacity suggestive of atelectasis. No acute findings. ACT 112: Negative or not required by law. Electronically signed by: Lalito Hercules M.D. 05/06/2020 11:47 AM Dictated: 05/06/20 1146 Transcribed: 05/06/20 1146 Blood Pressure Blood Pressure Findings: Normal blood pressure Discharge Plan Visit Data Chief Complaint: Abdominal Pain Stated Complaint: abd pain ED Provider: Nicolas Stover Discharge Problem: Catheter-associated urinary tract infection, Abdominal pain, Fever Patient Disposition: Admitted As Inpatient Condition: Good Discharge Instructions Interventions: ED Discharge Assessment Last Done: 05/06/20 16:48 Forms Stand Alone Forms: Intimate Bridge 2 Conception Prescriptions Prescriptions: No Action duloxetine 30 mg Capsule,Delayed Release(Dr/Ec) 30 mg PO QAM RF: 0 duloxetine 60 mg Capsule,Delayed Release(Dr/Ec) 60 mg PO QAM RF: 0 finasteride 5 mg Tablet 5 mg PO DAILY RF: 0 lisinopril 10 mg Tablet 10 mg PO DAILY RF: 0 Referrals Referrals: Devin PAEZ [Primary Care Provider] -
--- NOTE | 2020-05-06 11:49 | XRay Report ---
XR chest 1V portable CLINICAL HISTORY: SEPSIS COMPARISON STUDY: Chest radiograph November 11, 2019 FINDINGS: Lung volumes are mildly diminished. There is no pneumothorax or pleural effusion. Minimal l eft lower lung opacity favors atelectasis. Cardiomediastinal silhouette is normal. There is no eviden ce for pulmonary edema. IMPRESSION: Low lung volumes with linear left basilar opacity suggestive of atelectasis. No acute fi ndings. ACT 112: Negative or not required by law. Electronically signed by: Lalito Hercules M.D. 05/06/2020 11:47 AM
[2020-05-06 11:53] LABS: Basophils # (auto) 0.01 K/uL (0-0.2); Basophils % (auto) 0.1 %; Hematocrit (blood only) 36.8 % (42-52); Hemoglobin 12.6 g/dL (14.0-18.0); Immature Granulocytes # (auto) 0.02 K/uL (0.00-0.02); Immature Granulocytes % (auto) 0.2 %; Lymphocytes # (auto) 0.32 K/uL (1.2-3.4); Lymphocytes % (auto) 3.3 %; Mean Corpuscular Hemoglobin 31.8 pg (25-34); Mean Corpuscular Hgb Conc 34.2 g/dL (32-36); Mean Corpuscular Volume 92.9 fL (80-100); Mean Platelet Volume 8.9 fL (7.4-10.4); Neutrophils # (auto) 9.22 K/uL (1.4-6.5); Neutrophils % (auto) 95.4 %; Platelet Count 213 K/uL (130-400); RDW Coefficient of Variation 13.6 % (11.5-14.5); RDW Standard Deviation 46.3 fL (36.4-46.3); Red Blood Count 3.96 M/uL (4.7-6.1); White Blood Count 9.67 K/uL (4.8-10.8)
[2020-05-06 12:03] LABS: Partial Thromboplastin Ratio 0.9; Prothrombin Time 10.5 Seconds (9.0-12.0)
[2020-05-06 12:07] LABS: Appearance Urine Cloudy (Clear); Bacteria Urine Automated Negative (Negative); Bilirubin Urine Negative (Negative); Blood Urine 3+ (Negative); Color Urine Yellow; Epithelial Cell Urine Auto 0-5 /lpf (0-5); Glucose Urine UA Negative (Negative); Ketones Urine Negative (Negative); Leukocyte Esterase Urine 2+ (Negative); Nitrite Urine Negative (Negative); Protein Urine Negative (Negative); RBC Urine Automated >30 /hpf (0-4); Specific Gravity Urine 1.011 (1.000-1.030); Urobilinogen Urine Negative (Negative); WBC Urine Automated >30 /hpf (0-5); pH Urine 6.5 (4.5-7.5)
[2020-05-06] MEDS ORDERED: ONDANSETRON INJ 2 MG/ML 2 ML VIAL IV STA (12:10)
[2020-05-06] MEDS ORDERED: PIPERACILLIN/TAZOBACTAM 4.5 GM/120 ML BAG IV ONE (12:10)
[2020-05-06] MEDS ORDERED: PIPERACILL/TAZOBAC CONSULT ACTIVE PRN ×2 (12:10→17:53)
[2020-05-06 12:12] LABS: Alanine Aminotransferase 23 U/L (12-78); Albumin Level 3.5 gm/dl (3.4-5.0); Aspartate Aminotransferase 18 U/L (15-37); BUN Creatinine Ratio 9.5 (10-20); Blood Urea Nitrogen 17 mg/dl (7-18); Calcium 8.8 mg/dl (8.5-10.1); Carbon Dioxide 21 mmol/L (21-32); Chloride 100 mmol/L (98-107); Creatinine Clr Calc Pharmacy 51.3 ml/min; Est GFR (African American) 44.8; Est GFR (Non-African American) 38.7; Glucose 117 mg/dl (70-99); Magnesium 1.9 mg/dl (1.8-2.4); Potassium 4.3 mmol/L (3.5-5.1); Sodium 130 mmol/L (136-145)
[2020-05-06] MEDS: fentaNYL citrate 100 MCG/2 ML VIAL IV PRN ×2 (12:15→16:52)
[2020-05-06 12:17] LABS: Albumin Globulin Ratio 0.9 (0.9-2); Alkaline Phosphatase 67 U/L (45-117); Bilirubin,Total 0.7 mg/dl (0.2-1); C Reactive Protein 5.37 mg/dl (0-0.29); Globulin 3.9 gm/dl (2.5-4.0); Total Protein 7.4 gm/dl (6.4-8.2); Troponin I < 0.015 ng/ml (0-0.045)
[2020-05-06] MEDS ORDERED: IOVERSOL 100ml IV ONE (12:47)
--- NOTE | 2020-05-06 13:08 | CT Scan Report ---
CT abd pelvis IV con only CLINICAL HISTORY: Abdominal pain and fever COMPARISON STUDY: November 11, 2019 TECHNIQUE: The patient was scanned in a dynamic helical fashion during intravenous administration of 94 cc of Optiray 320. A dose lowering technique was utilized adhering to the principles of ALARA. CT DOSE: 894.85 mGy.cm FINDINGS: Lower chest: There is respiratory motion artifact. There are minor dependent atelectatic changes. Liver: The contrast-enhanced liver is normal in size, contour, and attenuation. There is no intrahepa tic biliary ductal dilatation. The hepatic veins and portal veins are patent. Gallbladder: Unremarkable. Spleen: Normal in size and attenuation. Pancreas: Unremarkable. Adrenal glands: Unremarkable. Kidneys: There is persistent mild bilateral hydronephrosis. There is a 12 mm right renal cyst. Kidney s are lobulated in contour. Bowel: There are no transition zones to indicate bowel obstruction. There are fluid-filled colonic an d small bowel loops with multiple air-fluid levels. Findings are consistent with a diarrheal state as would be seen in an enteritis. There is no evidence of acute diverticulitis. The appendix appears no rmal. Peritoneum: There is no intraperitoneal free air or abdominal ascites. There is a fat-containing umbi lical hernia. There is a fat-containing right inguinal hernia. Vasculature: The abdominal aorta is normal in course and caliber. Adenopathy: None. Pelvic viscera: There is an indwelling Gutierrez catheter. There is a markedly thick-walled bladder. A cy stitis cannot be excluded. There is mild prostatic enlargement. Skeletal structures: No destructive osseous lesions are seen. IMPRESSION: 1. No evidence of bowel obstruction. No evidence of free air 2. Fluid-filled colonic and small bowel loops with scattered air-fluid levels. The findings are sugge stive of a diarrheal state as would be seen in an enteritis 3. No evidence of acute diverticulitis. No evidence of acute appendicitis 4. Fat-containing umbilical hernia, an enlarging fat-containing right inguinal hernia 5. Mild bilateral hydronephrosis similar to the preceding study. 6. Indwelling Gutierrez catheter. Marked bladder wall thickening. A cystitis cannot be excluded ACT 112: Negative or not required by law. Electronically signed by: Junito Alarcon M.D. 05/06/2020 1:07 PM
--- NOTE | 2020-05-06 13:37 | History & Physical Report ---
Date of Service May 06, 2020 Assessment & Plan (1) Sepsis: With fever, tachycardia, tachypnea, and UTI as below. Blood pressures are stable. Lactate 1.8 -Admit to medical floor with telemetry -Continue IV fluids with normal saline at 100 mL's per hour-he received 2 L of normal saline bolus in the ER -Continue IV Zosyn given history of Pseudomonas and Enterobacter in the past on urine culture -Follow blood cultures and urine culture -Tylenol as needed for fevers (2) Catheter-associated urinary tract infection: With abnormal UA, Gutierrez catheter was clogged with clot and with urinary retention of 650 mL's on admission With sepsis and UTI as above -Treated with IV antibiotics Gutierrez catheter was exchanged in the ER on 05/06 -Urology consultation-he was seen by urology and had cystoscopy in 11/2019, was supposed to return for urodynamics but did not due to COVID delay in getting an appointment -It is unclear why he has been having urinary retention for the last year or so- urology noted on cystoscopy that he did not have significantly enlarged prostate at that time (3) Abdominal pain: Secondary to urinary retention and UTI -Improving now with Gutierrez catheter placement -Continue morphine as needed for pain Tylenol as needed for pain (4) Urinary retention: As above Urology consultation Gutierrez catheter in place -Continue finasteride -He was on Flomax as per urology notes from 08/2018, but it is no longer on his medication list here -We will add Flomax back to regimen (5) NEEMA (acute kidney injury): Creatinine up to 1.8 from what I think his baseline is which would be 1.5 from labs from previous Likely secondary to urinary retention from clogged catheter -Follow BMP in the morning -Hydrate with IV fluids -Gutierrez catheter replaced in the ER -Hold home lisinopril (6) CKD (chronic kidney disease) stage 3, GFR 30-59 ml/min: As above, baseline creatinine appears to be around 1.5 -Avoid nephrotoxins -renally dose meds when appropriate -follow BMP (7) Diabetes: Has a diagnosis of diabetes in his chart, but he is not aware of this He is not on medication for this as an outpatient Glucoses have been mildly elevated in the past -Check hemoglobin A1c in the morning (8) HTN (hypertension), benign: Blood pressures are controlled --Hold home lisinopril for acute kidney injury (9) Pulmonary nodules: Noted on previous chest imaging -Needs outpatient follow-up (10) Hyperlipidemia: Listed as a diagnosis, but not on medication for this Follow-up with PCP (11) Major depressive disorder: With PTSD also listed in the chart -Continue home duloxetine 90 mg daily (12) DVT prophylaxis: SCDs, no chemical anticoagulation given hematuria upon arrival with change out of Gutierrez catheter Disposition-admit to medical floor with telemetry Eventually back to [facility] History of Present Illness Chief Complaint: Abdominal pain Primary Care Provider: PHILIPPE Beltran This patient is a 64-year-old male inmate with a history of DM 2, hyperlipidemia, HTN, and BPH/urinary retention with chronic indwelling Gutierrez catheter who presents to the ER with suprapubic abdominal pain and urinary retention. He was found to have a fever on arrival. His Gutierrez catheter was removed and replaced. The nurse that replaced it reported she got out a blood clot followed by 650 mL's of urine with placement of the new Gutierrez. He is also having some loose stools, no nausea or vomiting. Denies chest pain or shortness of breath, no cough, no headache or sore throat, no lightheadedness. He has no COVID-19 exposures that he knows of and the guards at the bedside report no COVID cases that they are aware of at the [facility]. On laboratory values he did not have a leukocytosis, but he was hyponatremic at 130, and his creatinine was elevated above baseline at 1.83. His CRP was elevated at 5.3, and a procalcitonin was 0.36. His urine was obviously infected, and a rapid COVID-19 test was negative. He was febrile, tachycardic, and tachypneic upon arrival. He was given 2 L of normal saline, a dose of IV Zosyn, IV fentanyl for pain, and Zofran for nausea. A CT of the abdomen/pelvis was performed which showed no evidence of bowel obstruction, but had fluid-filled colonic and small bowel loops with scattered air-fluid levels suggestive of a diarrheal state or enteritis, a fat-containing umbilical hernia and enlarging fat-containing right inguinal hernia, mild bilateral hydronephrosis similar to previous and an indwelling Gutierrez catheter with market bladder wall thickening. Otherwise no diverticulitis or appendicitis. He will be admitted for sepsis with complicated Gutierrez-catheter associated UTI and urinary retention as well as acute kidney injury. Allergies Allergy/AdvReac Type Severity Reaction Status Date / Time WOOL Allergy Unknown UNKNOWN Uncoded 05/06/20 11:53 Home Medications Home Medications Medication Instructions Recorded Confirmed Type duloxetine 30 mg PO QAM 12/17/18 05/06/20 History duloxetine 60 mg PO QAM 12/17/18 05/06/20 History finasteride 5 mg PO DAILY 11/11/19 05/06/20 History lisinopril 10 mg PO DAILY 05/06/20 05/06/20 History Past Med/Surg History Medical History Diabetes (Chronic) HTN (hypertension), benign Hyperlipidemia (Chronic) Inguinal hernia Major depressive disorder Pulmonary nodules Umbilical hernia Urinary retention Surgical History No pertinent past surgical history Family History Sister Diabetes Hypertension Brother Hypertension Father Nephrolithiasis Lung disease Other No pertinent family history in first degree relatives Social History Smoking Status: Former smoker Tobacco Type: Cigarettes packs per day: 1; Years Smoked: 25; Number of Years Since Quit: 5; Second Hand Exposure: No; Do You Dip or Chew Tobacco: No; Tobacco Cessation Education Requested by Patient: No Hx Alcohol Use: Yes Alcohol type: hard liquor Alcohol Intake Frequency: 4 or More x per/Week Alcohol Intake Frequency Comment: Previous, but no longer drinking since he is incarcerated Hx Substance Use: Yes Non-Prescribed Medications: Heroin Non-Prescribed Medications Comment: 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 Preferred Language: Maltese Paralegal Supervisor Required: No Beliefs That Will Affect Care: None Current Living Situation Comment: Lives at [facility] Other Information That Helps Us Care for You: No Feels Safe at Home: Yes Review of Systems Review of Systems: All systems reviewed & are unremarkable except as noted in HPI & below Physical Exam Constitutional: WD/WN, vitals as above Eyes: PERRL, conjunctivae normal, anicteric sclerae ENMT: external ear and nose normal, oropharynx normal (Very poor dentition) Neck: trachea midline, no thyromegaly Respiratory: normal respiratory effort, lungs clear to auscultation Cardiovascular: RRR, no murmur, no edema Chest (Breasts): Chest: normal inspection of chest Gastrointestinal (Abdomen): Inspection/Auscultation: abdomen normal to inspection and normal bowel sounds; abdomen not distended Percussion/Palpation: + abdomen tender (Mild tenderness palpation in the suprapubic region without guarding or rebound), abdomen soft and + hernia (Small reducible umbilical hernia); no guarding and no hepatosplenomegaly Musculoskeletal: Extremities: extremities normal to inspection; no cyanosis and no clubbing Skin: no rashes, warm and dry Neurologic: moves all extremities and awake; no focal motor deficits Psychiatric: A+Ox3, euthymic affect Genitourinary: Gutierrez catheter in place draining clear yellow urine Lymphatic: no lymphedema Results & Data Results & Data ([facility]) Vital Signs (Past 12 Hours) Vital Signs Temp Pulse Resp BP Pulse Ox 05/06/20 12:10 91 H 23 94 05/06/20 12:01 92 H 24 95 05/06/20 12:00 91 H 24 138/73 94 05/06/20 11:50 95 H 23 94 05/06/20 11:45 96 H 24 145/80 H 94 05/06/20 11:40 94 H 22 96 05/06/20 11:38 96 H 27 H 133/80 94 05/06/20 11:30 101 H 24 95 05/06/20 11:20 106 H 22 96 05/06/20 11:19 97 H 26 H 97 05/06/20 11:18 100 H 21 116/86 96 05/06/20 11:15 38.0 C H 96 H 31 H 113/68 97 Laboratory Results 05/06/20 05/06/20 05/06/20 Range/Units 11:35 11:32 11:32 WBC (4.8-10.8) K/uL RBC (4.7-6.1) M/uL Hgb (14.0-18.0) g/dL Hct (42-52) % MCV (80-100) fL MCH (25-34) pg MCHC (32-36) g/dL RDW Std Deviation (36.4-46.3) fL RDW Coeff of Osmin (11.5-14.5) % Plt Count (130-400) K/uL MPV (7.4-10.4) fL Immature Gran % (Auto) % Neut % (Auto) % Lymph % (Auto) % [place] % (Auto) % Eos % (Auto) % Baso % (Auto) % Neut # (Auto) (1.4-6.5) K/uL Lymph # (Auto) (1.2-3.4) K/uL [place] # (Auto) (0.11-0.59) K/uL Eos # (Auto) (0-0.5) K/uL Baso # (Auto) (0-0.2) K/uL Immature Gran # (Auto) (0.00-0.02) K/uL ESR (0-14) mm/hr PT 10.5 (9.0-12.0) Seconds INR 1.0 (0.9-1.1) APTT 25.0 (21.0-31.0) Seconds PTT Ratio 0.9 Sodium (136-145) mmol/L Potassium (3.5-5.1) mmol/L Chloride (98-107) mmol/L Carbon Dioxide (21-32) mmol/L Anion Gap (3-11) BUN (7-18) mg/dl Creatinine (0.6-1.4) mg/dl Est Cr Clr Drug Dosing ml/min Est GFR ( Amer) Est GFR (Non-Af Amer) BUN/Creatinine Ratio (10-20) Glucose (70-99) mg/dl Lactate 1.8 (0.4-2.0) mmol/L Calcium (8.5-10.1) mg/dl Magnesium (1.8-2.4) mg/dl Total Bilirubin (0.2-1) mg/dl AST (15-37) U/L ALT (12-78) U/L Alkaline Phosphatase (45-117) U/L Troponin I (0-0.045) ng/ml C-Reactive Protein (0-0.29) mg/dl Total Protein (6.4-8.2) gm/dl Albumin (3.4-5.0) gm/dl Globulin (2.5-4.0) gm/dl Albumin/Globulin Ratio (0.9-2) Procalcitonin (0-0.5) ng/ml Urine Color Yellow Urine Appearance Cloudy A (Clear) Urine pH 6.5 (4.5-7.5) Ur Specific [place] 1.011 (1.000-1.030) Urine Protein Negative (Negative) Urine Glucose (UA) Negative (Negative) Urine Ketones Negative (Negative) Urine Blood 3+ H (Negative) Urine Nitrite Negative (Negative) Urine Bilirubin Negative (Negative) Urine Urobilinogen Negative (Negative) Ur Leukocyte Esterase 2+ H (Negative) Urine WBC (Auto) >30 H (0-5) /hpf Urine RBC (Auto) >30 H (0-4) /hpf U Hyaline Cast (Auto) 1-5 (0-5) /lpf U Epithel Cells (Auto) 0-5 (0-5) /lpf Urine Bacteria (Auto) Negative (Negative) 05/06/20 05/06/20 05/06/20 Range/Units 11:32 11:32 11:32 WBC 9.67 (4.8-10.8) K/uL RBC 3.96 L (4.7-6.1) M/uL Hgb 12.6 L (14.0-18.0) g/dL Hct 36.8 L (42-52) % MCV 92.9 (80-100) fL MCH 31.8 (25-34) pg MCHC 34.2 (32-36) g/dL RDW Std Deviation 46.3 (36.4-46.3) fL RDW Coeff of Osmin 13.6 (11.5-14.5) % Plt Count 213 (130-400) K/uL MPV 8.9 (7.4-10.4) fL Immature Gran % (Auto) 0.2 % Neut % (Auto) 95.4 % Lymph % (Auto) 3.3 % [place] % (Auto) 1.0 % Eos % (Auto) 0.0 % Baso % (Auto) 0.1 % Neut # (Auto) 9.22 H (1.4-6.5) K/uL Lymph # (Auto) 0.32 L (1.2-3.4) K/uL [place] # (Auto) 0.10 L (0.11-0.59) K/uL Eos # (Auto) 0.00 (0-0.5) K/uL Baso # (Auto) 0.01 (0-0.2) K/uL Immature Gran # (Auto) 0.02 (0.00-0.02) K/uL ESR (0-14) mm/hr PT (9.0-12.0) Seconds INR (0.9-1.1) APTT (21.0-31.0) Seconds PTT Ratio Sodium 130 L (136-145) mmol/L Potassium 4.3 (3.5-5.1) mmol/L Chloride 100 (98-107) mmol/L Carbon Dioxide 21 (21-32) mmol/L Anion Gap 9.0 (3-11) BUN 17 (7-18) mg/dl Creatinine 1.83 H (0.6-1.4) mg/dl Est Cr Clr Drug Dosing 51.3 ml/min Est GFR ( Amer) 44.8 Est GFR (Non-Af Amer) 38.7 BUN/Creatinine Ratio 9.5 L (10-20) Glucose 117 H (70-99) mg/dl Lactate (0.4-2.0) mmol/L Calcium 8.8 (8.5-10.1) mg/dl Magnesium 1.9 (1.8-2.4) mg/dl Total Bilirubin 0.7 (0.2-1) mg/dl AST 18 (15-37) U/L ALT 23 (12-78) U/L Alkaline Phosphatase 67 (45-117) U/L Troponin I < 0.015 (0-0.045) ng/ml C-Reactive Protein 5.37 H (0-0.29) mg/dl Total Protein 7.4 (6.4-8.2) gm/dl Albumin 3.5 (3.4-5.0) gm/dl Globulin 3.9 (2.5-4.0) gm/dl Albumin/Globulin Ratio 0.9 (0.9-2) Procalcitonin 0.36 (0-0.5) ng/ml Urine Color Urine Appearance (Clear) Urine pH (4.5-7.5) Ur Specific [place] (1.000-1.030) Urine Protein (Negative) Urine Glucose (UA) (Negative) Urine Ketones (Negative) Urine Blood (Negative) Urine Nitrite (Negative) Urine Bilirubin (Negative) Urine Urobilinogen (Negative) Ur Leukocyte Esterase (Negative) Urine WBC (Auto) (0-5) /hpf Urine RBC (Auto) (0-4) /hpf U Hyaline Cast (Auto) (0-5) /lpf U Epithel Cells (Auto) (0-5) /lpf Urine Bacteria (Auto) (Negative) 05/06/20 Range/Units 11:32 WBC (4.8-10.8) K/uL RBC (4.7-6.1) M/uL Hgb (14.0-18.0) g/dL Hct (42-52) % MCV (80-100) fL MCH (25-34) pg MCHC (32-36) g/dL RDW Std Deviation (36.4-46.3) fL RDW Coeff of Osmin (11.5-14.5) % Plt Count (130-400) K/uL MPV (7.4-10.4) fL Immature Gran % (Auto) % Neut % (Auto) % Lymph % (Auto) % [place] % (Auto) % Eos % (Auto) % Baso % (Auto) % Neut # (Auto) (1.4-6.5) K/uL Lymph # (Auto) (1.2-3.4) K/uL [place] # (Auto) (0.11-0.59) K/uL Eos # (Auto) (0-0.5) K/uL Baso # (Auto) (0-0.2) K/uL Immature Gran # (Auto) (0.00-0.02) K/uL ESR 16 H (0-14) mm/hr PT (9.0-12.0) Seconds INR (0.9-1.1) APTT (21.0-31.0) Seconds PTT Ratio Sodium (136-145) mmol/L Potassium (3.5-5.1) mmol/L Chloride (98-107) mmol/L Carbon Dioxide (21-32) mmol/L Anion Gap (3-11) BUN (7-18) mg/dl Creatinine (0.6-1.4) mg/dl Est Cr Clr Drug Dosing ml/min Est GFR ( Amer) Est GFR (Non-Af Amer) BUN/Creatinine Ratio (10-20) Glucose (70-99) mg/dl Lactate (0.4-2.0) mmol/L Calcium (8.5-10.1) mg/dl Magnesium (1.8-2.4) mg/dl Total Bilirubin (0.2-1) mg/dl AST (15-37) U/L ALT (12-78) U/L Alkaline Phosphatase (45-117) U/L Troponin I (0-0.045) ng/ml C-Reactive Protein (0-0.29) mg/dl Total Protein (6.4-8.2) gm/dl Albumin (3.4-5.0) gm/dl Globulin (2.5-4.0) gm/dl Albumin/Globulin Ratio (0.9-2) Procalcitonin (0-0.5) ng/ml Urine Color Urine Appearance (Clear) Urine pH (4.5-7.5) Ur Specific [place] (1.000-1.030) Urine Protein (Negative) Urine Glucose (UA) (Negative) Urine Ketones (Negative) Urine Blood (Negative) Urine Nitrite (Negative) Urine Bilirubin (Negative) Urine Urobilinogen (Negative) Ur Leukocyte Esterase (Negative) Urine WBC (Auto) (0-5) /hpf Urine RBC (Auto) (0-4) /hpf U Hyaline Cast (Auto) (0-5) /lpf U Epithel Cells (Auto) (0-5) /lpf Urine Bacteria (Auto) (Negative) Diagnostic Findings XR chest 1V portable CLINICAL HISTORY: SEPSIS COMPARISON STUDY: Chest radiograph November 11, 2019 FINDINGS: Lung volumes are mildly diminished. There is no pneumothorax or pleural effusion. Minimal left lower lung opacity favors atelectasis. Cardiomediastinal silhouette is normal. There is no evidence for pulmonary edema. IMPRESSION: Low lung volumes with linear left basilar opacity suggestive of atelectasis. No acute findings. CT abd pelvis IV con only CLINICAL HISTORY: Abdominal pain and fever COMPARISON STUDY: November 11, 2019 TECHNIQUE: The patient was scanned in a dynamic helical fashion during intravenous administration of 94 cc of Optiray 320. A dose lowering technique was utilized adhering to the principles of ALARA. CT DOSE: 894.85 mGy.cm FINDINGS: Lower chest: There is respiratory motion artifact. There are minor dependent atelectatic changes. Liver: The contrast-enhanced liver is normal in size, contour, and attenuation. There is no intrahepatic biliary ductal dilatation. The hepatic veins and portal veins are patent. Gallbladder: Unremarkable. Spleen: Normal in size and attenuation. Pancreas: Unremarkable. Adrenal glands: Unremarkable. Kidneys: There is persistent mild bilateral hydronephrosis. There is a 12 mm right renal cyst. Kidneys are lobulated in contour. Bowel: There are no transition zones to indicate bowel obstruction. There are fluid-filled colonic and small bowel loops with multiple air-fluid levels. Findings are consistent with a diarrheal state as would be seen in an enteritis. There is no evidence of acute diverticulitis. The appendix appears normal. Peritoneum: There is no intraperitoneal free air or abdominal ascites. There is a fat-containing umbilical hernia. There is a fat-containing right inguinal hernia. Vasculature: The abdominal aorta is normal in course and caliber. Adenopathy: None. Pelvic viscera: There is an indwelling Gutierrez catheter. There is a markedly thick-walled bladder. A cystitis cannot be excluded. There is mild prostatic enlargement. Skeletal structures: No destructive osseous lesions are seen. IMPRESSION: 1. No evidence of bowel obstruction. No evidence of free air 2. Fluid-filled colonic and small bowel loops with scattered air-fluid levels. The findings are suggestive of a diarrheal state as would be seen in an enteritis 3. No evidence of acute diverticulitis. No evidence of acute appendicitis 4. Fat-containing umbilical hernia, an enlarging fat-containing right inguinal hernia 5. Mild bilateral hydronephrosis similar to the preceding study. 6. Indwelling Gutierrez catheter. Marked bladder wall thickening. A cystitis cannot be excluded ECG Additional Comments: ECG on 05/06/2020 1115 with normal sinus rhythm, rate 97, no ischemic changes Code Status & VTE Plan Code Status Full code VTE Prophylaxis Plan VTE Prophylaxis will be ordered: Yes PG Care Time/CCT Total # of Minutes Spent Total Time Spent with Patient: Total time spent is greater than 50% in coordination of care (as documented) at patient's floor/unit and/or counseling patient: Coding Level of Care Code 11977 Initial Inpt Care Lvl 3 Diagnoses Sepsis A41.9 Catheter-associated urinary tract infection T83.511A; N39.0 Encounter type: initial encounter Indwelling urinary catheter type: indwelling urethral catheter Abdominal pain R10.84 Abdominal location: generalized Urinary retention R33.9 NEEMA (acute kidney injury) N17.9 CKD (chronic kidney disease) stage 3, GFR 30-59 ml/min N18.3 Diabetes E11.9 HTN (hypertension), benign I10 Pulmonary nodules R91.8 Hyperlipidemia E78.5 Major depressive disorder F32.9 DVT prophylaxis Z29.9 (1) Catheter-associated urinary tract infection Encounter type: initial encounter Indwelling urinary catheter type: indwelling urethral catheter Qualified Code(s): T83.511A - Infection and inflammatory reaction due to indwelling urethral catheter, initial encounter; N39.0 - Urinary tract infection, site not specified (2) Abdominal pain Abdominal location: generalized Qualified Code(s): R10.84 - Generalized abdominal pain
[2020-05-06] MEDS ORDERED: MoRPHine SULFATE 2 MG/ML CARP IV PRN (14:11)
[2020-05-06] MEDS ORDERED: SODIUM CHLORIDE 0.9% 1000ML 1,000 ML IV SCH (14:15)
[2020-05-06] MEDS: PIPERACILLIN/TAZOBACTAM 3.375 GM in DEXTROSE 5% 100 ML IV SCH (16:53)
[2020-05-06] MEDS ORDERED: ONDANSETRON INJ 2 MG/ML 2 ML VIAL IV PRN (17:53)
[2020-05-06] MEDS ORDERED: MAGNESIUM HYDROXIDE SUSP 30 ML UDC PO PRN (17:53)
[2020-05-06] MEDS ORDERED: ACETAMINOPHEN 325 MG TAB PO PRN (17:53)
[2020-05-06] MEDS ORDERED: ALUMINUM/MAGNESIUM SUSP 30 ML UDC PO PRN (17:53)
[2020-05-06] MEDS ORDERED: POLYETHYLENE (MIRALAX) 17 GM PACK PO PRN (17:53)
--- NOTE | 2020-05-06 22:50 | Communication Note ---
Date of Service: May 06, 2020 Called for BCx2 positive for GPC. Pt on empiric zosyn for presumed Urosepsis. Pt endorses chronic shortness of breath but with no change in the last few weeks, and no new cough/sputum production. XR Minimal left lower lung opacity favors atelectasis, and procal on admit was negative. Low suspicion for pulmonary source/PNA. Given patients NEEMA and concurrent zosyn tx will defer vancomycin and add dapto for GPC bacteremia coverage.
[2020-05-06] MEDS ORDERED: DAPTOmycin 450 MG in SYRINGE 0 ML IV SCH (23:30)
[2020-05-07] MEDS: PIPERACILLIN/TAZOBACTAM 3.375 GM in DEXTROSE 5% 100 ML IV SCH ×3 (00:01→16:13)
--- NOTE | 2020-05-07 07:13 | Electrocardiogram Report ---
Test Reason : Blood Pressure : / mmHG Vent. Rate : 097 BPM Atrial Rate : 097 BPM P-R Int : 138 ms QRS Dur : 076 ms QT Int : 326 ms P-R-T Axes : 050 006 044 degrees QTc Int : 414 ms Normal sinus rhythm Normal ECG When compared with ECG of 11-NOV-2019 08:00, Vent. rate has increased BY 49 BPM Confirmed by Jorge Mathis ([id number]) on 05/07/2020 7:13:04 AM Referred By: Confirmed By:Jorge Mathis
[2020-05-07 07:22] LABS: Basophils # (auto) 0.01 K/uL (0-0.2); Basophils % (auto) 0.1 %; Hemoglobin 11.8 g/dL (14.0-18.0); Immature Granulocytes # (auto) 0.02 K/uL (0.00-0.02); Immature Granulocytes % (auto) 0.2 %; Lymphocytes # (auto) 0.53 K/uL (1.2-3.4); Lymphocytes % (auto) 5.4 %; Mean Corpuscular Hemoglobin 31.5 pg (25-34); Mean Corpuscular Hgb Conc 32.8 g/dL (32-36); Mean Platelet Volume 9.1 fL (7.4-10.4); Monocytes % (auto) 4.1 %; Neutrophils # (auto) 8.78 K/uL (1.4-6.5); Neutrophils % (auto) 90.2 %; Platelet Count 172 K/uL (130-400); RDW Coefficient of Variation 14.6 % (11.5-14.5); Red Blood Count 3.75 M/uL (4.7-6.1); White Blood Count 9.74 K/uL (4.8-10.8)
[2020-05-07 07:57] LABS: BUN Creatinine Ratio 7.5 (10-20); Calcium 8.3 mg/dl (8.5-10.1); Creatinine Clr Calc Pharmacy 43.4 ml/min; Est GFR (African American) 38.8; Est GFR (Non-African American) 33.5; Potassium 4.1 mmol/L (3.5-5.1)
[2020-05-07] MEDS: TAMSULOSIN HCL 0.4 MG CAP PO SCH (08:09)
[2020-05-07] MEDS: FINASTERIDE 5 MG TAB PO SCH (08:09)
[2020-05-07] MEDS: DULOXETINE HCL 30 MG CAP PO SCH (08:10)
[2020-05-07] MEDS: DULOXETINE HCL 60 MG CAP PO SCH (08:10)
[2020-05-07] MEDS ORDERED: lisinopriL 10 MG TAB PO SCH (09:00)
--- NOTE | 2020-05-07 09:07 | Hospitalist Progress Note ---
Date of Service May 07, 2020 Assessment & Plan (1) Sepsis: With fever, tachycardia, tachypnea, and UTI staph and gram negative preliminary identified. -Continue IV Zosyn given history of Pseudomonas and Enterobacter in the past on urine culture -Follow blood cultures and urine culture for final results -Tylenol as needed for fevers (2) Catheter-associated urinary tract infection: With abnormal UA, Fontana catheter was clogged with clot and with urinary retention of 650 mL's on admission With sepsis and UTI as above -zosyn as staph is not mrsa at this time Fontana catheter was exchanged in the ER on 05/06 -Urology consultation-he was seen by urology and had cystoscopy in 11/2019, was supposed to return for urodynamics but did not due to COVID delay in getting an appointment -It is unclear why he has been having urinary retention for the last year or so- urology noted on cystoscopy that he did not have significantly enlarged prostate at that time reportedly was some issue with intermittent st cath while at the long term (3) Abdominal pain: Secondary to urinary retention and UTI -Improving now with Fontana catheter placement -Continue morphine as needed for pain Tylenol as needed for pain (4) Urinary retention: Urology consultation Fontana catheter in place -Continue finasteride, restarted flomax (5) NEEMA (acute kidney injury): Creatinine up to 1.8 secondary to obstructive uropathy from fontana obstruction Cr up slightly since admission -Fontana catheter replaced in the ER -Holding home lisinopril (6) CKD (chronic kidney disease) stage 3, GFR 30-59 ml/min: As above, baseline creatinine appears to be around 1.5 -Avoid nephrotoxins (7) Diabetes: Has a diagnosis of diabetes in his chart, but he is not aware of this He is not on medication for this as an outpatient hemoglobin A1c 5.9 will have on carbohydrate conservative diet (8) HTN (hypertension), benign: Blood pressures are controlled off meds --Hold home lisinopril for acute kidney injury (9) Pulmonary nodules: Noted on previous chest imaging -Needs outpatient follow-up lung nodule clinic (10) Hyperlipidemia: Listed as a diagnosis, but not on medication for this Follow-up with PCP (11) Major depressive disorder: With PTSD also listed in the chart -Continue home duloxetine 90 mg daily (12) DVT prophylaxis: SCDs, no chemical anticoagulation given hematuria upon arrival with change out of Fontana catheter Eventually back to long term Admission and Anticipated Discharge Date Admission Date: May 06, 2020 Subjective pt is dismissive during my visit, denies any specific complaints he is preliminarily with staph plus a gram negative in urine ( has a history of pseudomonas) fontana is drianing well Review of Systems Review of Systems: Mild distress and fatigue no headache, blurry or double vision no speech or swallowing issues no chest pain, pressure or palpitations no shortness of breath, cough or wheezes Suprapubic abdominal pain, no nausea or vomiting, no diarrhea or constipation no dysuria, hematuria or frequency no focal joint pain or swelling no back pain, CVA tenderness or radicular pain no bruising, bleeding or rashes no focal signs of weakness or numbness or altered sensation no complaints or anxiety or depression. Physical Exam Physical Exam: The patient appeared well nourished and normally developed. Vital signs as documented. Head exam is normocephalic atraumatic no scleral icterus Neck is without JVD, thyromegaly, or carotid bruits. Lungs are clear to auscultation, no focal loss of breath sounds Cardiac exam, Rhythm is regular.. No murmurs, rubs or gallops. Abdominal exam reveals normal bowel sounds, soft minor suprapubic tenderness Extremities are nonedematous and both pedal pulses are normal. Neurologic exam is alert and oriented, no focal loss of strength or sensation Skin is without bruises or rashes Psychologically is without concerns for anxiety or depression Results & Data Results & Data ([facility]) Vital Signs (Past 12 Hours) Vital Signs Temp Pulse Pulse Resp BP Pulse Ox 05/07/20 07:46 100.2 F H 75 20 113/72 95 05/07/20 07:30 78 05/07/20 04:33 99.0 F 87 16 125/72 95 05/07/20 02:34 84 05/06/20 23:00 98.7 F 89 20 124/73 95 PG Care Time/CCT Total # of Minutes Spent Total Time Spent with Patient: Total time spent is greater than 50% in coordination of care (as documented) at patient's floor/unit and/or counseling patient: Coding Level of Care Code 93806 Subseq Hosp Care Lvl 3 Diagnoses Sepsis A41.9 Catheter-associated urinary tract infection T83.511A; N39.0 Encounter type: initial encounter Indwelling urinary catheter type: indwelling urethral catheter Abdominal pain R10.84 Abdominal location: generalized Urinary retention R33.9 NEEMA (acute kidney injury) N17.9 CKD (chronic kidney disease) stage 3, GFR 30-59 ml/min N18.3 Diabetes E11.9 HTN (hypertension), benign I10 Pulmonary nodules R91.8 Hyperlipidemia E78.5 Major depressive disorder F32.9 DVT prophylaxis Z29.9 (1) Catheter-associated urinary tract infection Encounter type: initial encounter Indwelling urinary catheter type: indwelling urethral catheter Qualified Code(s): T83.511A - Infection and inflammatory reaction due to indwelling urethral catheter, initial encounter; N39.0 - Urinary tract infection, site not specified (2) Abdominal pain Abdominal location: generalized Qualified Code(s): R10.84 - Generalized abdominal pain
[2020-05-07 13:08] LABS: Estimated Average Glucose 123 mg/dl; Hemoglobin A1C 5.9 % (4.5-5.6)
--- NOTE | 2020-05-07 14:41 | Urology Consultation ---
Date of Consultation May 07, 2020 Assessment & Plan (1) Catheter-associated urinary tract infection: Fontana in place. Draining fine. Leave until pt can f/u as outpatient for UDS testing. Abx for UTI. Rec treating for 10-14 days. Once other medical issues stablize, ok to discharge from Urology point of view. Continue Flomax. (2) Urinary retention: History of Present Illness Attending Physician: Mike Rodriguez MD 64 y/o male with a complex past medical hx was admitted with CAUTI and NEEMA. Pt has a hx of urinary retention and has had a chronic fontana for approx 6 mos. He had a cysto done in Nov 2019 which did not show an overly enlarged prostate. After that he was supposed to have UDS but never had follow up. Since then he has had his fontana changed every month. In the past he was on Flomax but is no longer taking it. I will note that the patient is a fairly poor historian and it is difficult to get exact details regarding his past urologic history. Upon admission there appeared to be some dysfunction to the fontana drainage. He reported suprapubic pain and abd pain. The fontana was replaced. A small bloot clot was removed and 650mLs of urine then drained. Since then his urine has re mained clear and is draining w/o issues. A CT of the abdomen/pelvis was performed which showed no evidence of bowel obstruction, but had fluid-filled colonic and small bowel loops with scattered air-fluid levels suggestive of a diarrheal state or enteritis, a fat-containing umbilical hernia and enlarging fat-containing right inguinal hernia, mild bilateral hydronephrosis similar to previous and an indwelling Fontana catheter with market bladder wall thickening. Otherwise no diverticulitis or appendicitis. Allergies Allergy/AdvReac Type Severity Reaction Status Date / Time WOOL Allergy Unknown UNKNOWN Uncoded 05/06/20 11:53 Home Medications Home Medications Medication Instructions Recorded Confirmed Type duloxetine 30 mg PO QAM 12/17/18 05/06/20 History duloxetine 60 mg PO QAM 12/17/18 05/06/20 History finasteride 5 mg PO DAILY 11/11/19 05/06/20 History lisinopril 10 mg PO DAILY 05/06/20 05/06/20 History Patient History Medical History (Updated 05/06/20 @ 22:30 by Batsheva Najera MD) CKD (chronic kidney disease) stage 3, GFR 30-59 ml/min Diabetes (Chronic) HTN (hypertension), benign Hyperlipidemia (Chronic) Inguinal hernia Major depressive disorder Pulmonary nodules Umbilical hernia Urinary retention Surgical History No pertinent past surgical history Family History Sister Diabetes Hypertension Brother Hypertension Father Nephrolithiasis Lung disease Other No pertinent family history in first degree relatives Social History Smoking Status: Former smoker Tobacco Type: Cigarettes packs per day: 1; Years Smoked: 25; Number of Years Since Quit: 5; Second Hand Exposure: No; Do You Dip or Chew Tobacco: No; Tobacco Cessation Education Requested by Patient: No Hx Alcohol Use: Yes Alcohol type: hard liquor Alcohol Intake Frequency: 4 or More x per/Week Alcohol Intake Frequency Comment: Previous, but no longer drinking since he is incarcerated Hx Substance Use: Yes Non-Prescribed Medications: Heroin Non-Prescribed Medications Comment: 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 Preferred Language: Bel[place]ian [employer] Machine Operator Required: No Beliefs That Will Affect Care: None Current Living Situation Comment: Lives at [facility] Other Information That Helps Us Care for You: No Feels Safe at Home: Yes Review of Systems Review of Systems: All systems reviewed & are unremarkable except as noted in HPI & below Physical Exam Constitutional: WD/WN, vitals as above Eyes: PERRL, conjunctivae normal, anicteric sclerae ENMT: external ear and nose normal, oropharynx normal Neck: trachea midline, no thyromegaly Respiratory: normal respiratory effort, lungs clear to auscultation Cardiovascular: RRR, no murmur, no edema Gastrointestinal (Abdomen): normal bowel sounds, soft, nontender, no hepatosplenomegaly Musculoskeletal: no cyanosis or clubbing, extremities motor strength 5/5 Skin: no rashes, warm and dry Neurologic: patellar DTR's 2+ bilat, sensation intact Genitourinary: no testicular masses, no penis abnormality Lymphatic: no cervical or axillary lymphadenopathy Results & Data Vital Signs (Past 12 Hours) Vital Signs Temp Pulse Pulse Resp BP Pulse Ox 05/07/20 11:50 37.9 C H 80 20 108/70 97 05/07/20 07:46 37.9 C H 75 20 113/72 95 05/07/20 07:30 78 05/07/20 04:33 37.2 C 87 16 125/72 95 PG Care Time/CCT Total # of Minutes Spent Total Time Spent with Patient: Total time spent is greater than 50% in coordination of care (as documented) at patient's floor/unit and/or counseling patient: 30 Coding Level of Care Code 08204 Office/OBS Consult Lvl 3 Diagnoses Catheter-associated urinary tract infection T83.511A; N39.0 Encounter type: initial encounter Indwelling urinary catheter type: indwelling urethral catheter Urinary retention R33.9 (1) Catheter-associated urinary tract infection Encounter type: initial encounter Indwelling urinary catheter type: indwelling urethral catheter Qualified Code(s): T83.511A - Infection and inflammatory reaction due to indwelling urethral catheter, initial encounter; N39.0 - Urinary tract infection, site not specified
[2020-05-07 18:09] LABS: Appearance Urine Turbid (Clear); Bacteria Urine Automated Negative (Negative); Bilirubin Urine Negative (Negative); Blood Urine 2+ (Negative); Color Urine Yellow; Epithelial Cell Urine Auto 0-5 /lpf (0-5); Glucose Urine UA Negative (Negative); Ketones Urine Negative (Negative); Leukocyte Esterase Urine 3+ (Negative); Nitrite Urine Negative (Negative); Protein Urine 1+ (Negative); RBC Urine Automated 0-4 /hpf (0-4); Specific Gravity Urine 1.019 (1.000-1.030); Urobilinogen Urine Negative (Negative); WBC Urine Automated >30 /hpf (0-5); pH Urine 5.5 (4.5-7.5)
[2020-05-08] MEDS: PIPERACILLIN/TAZOBACTAM 3.375 GM in DEXTROSE 5% 100 ML IV SCH ×4 (00:23→23:38)
--- NOTE | 2020-05-08 07:24 | Hospitalist Progress Note ---
Date of Service May 08, 2020 Assessment & Plan (1) Sepsis: With fever, tachycardia, tachypnea, and UTI staph and pseudomonas -Continue IV Zosyn with pseudomonas, does have sensitivity to levaquin maybe able to transition to po meds eventually, blood cultures do show staph in 3 of 4 and gran negative in one of four, this will mean at least a 2 week course, will have an Echo with the staph bacteremia. will need ID consult -Tylenol as needed for fevers (2) Catheter-associated urinary tract infection: With abnormal UA, Fontana catheter was clogged with clot and with urinary retention of 650 mL's on admission With sepsis and UTI as above -zosyn as staph is not mrsa at this time Fontana catheter was exchanged in the ER on 05/06 -Urology consultation-he was seen by urology and had cystoscopy in 11/2019, was supposed to return for urodynamics but did not due to COVID delay in getting an appointment -It is unclear why he has been having urinary retention for the last year or so- urology noted on cystoscopy that he did not have significantly enlarged prostate at that time reportedly was some issue with [facility] (3) Abdominal pain: Secondary to urinary retention and UTI -Improving now with Fontana catheter placement -Continue morphine as needed for pain Tylenol as needed for pain (4) Urinary retention: Urology consultation Fontana catheter in place -Continue finasteride, restarted flomax (5) NEEMA (acute kidney injury): Creatinine up to 1.8 secondary to obstructive uropathy from fontana obstruction Cr up slightly since admission -Fontana catheter replaced in the ER -Holding home lisinopril (6) CKD (chronic kidney disease) stage 3, GFR 30-59 ml/min: As above, baseline creatinine appears to be around 1.5 -Avoid nephrotoxins (7) Diabetes: Has a diagnosis of diabetes in his chart, but he is not aware of this He is not on medication for this as an outpatient hemoglobin A1c 5.9 will have on carbohydrate conservative diet (8) HTN (hypertension), benign: Blood pressures are controlled off meds --Hold home lisinopril for acute kidney injury (9) Pulmonary nodules: Noted on previous chest imaging -Needs outpatient follow-up lung nodule clinic (10) Hyperlipidemia: Listed as a diagnosis, but not on medication for this Follow-up with PCP (11) Major depressive disorder: With PTSD also listed in the chart -Continue home duloxetine 90 mg daily (12) DVT prophylaxis: SCDs, no chemical anticoagulation given hematuria upon arrival with change out of Fontana catheter [facility] Admission and Anticipated Discharge Date Admission Date: May 06, 2020 Subjective pt denies any specific complaints he is preliminarily with staph plus p seudomonas in urine and likely in blood. will likely need ID evaluation for [place] [facility] recommendation, they are available m-f and will consult on 05/09 fontana continues to be draining well Review of Systems Review of Systems: Mild distress and fatigue no headache, blurry or double vision no speech or swallowing issues no chest pain, pressure or palpitations no shortness of breath, cough or wheezes Suprapubic abdominal pain, no nausea or vomiting, no diarrhea or constipation no dysuria, hematuria or frequency no focal joint pain or swelling no back pain, CVA tenderness or radicular pain no bruising, bleeding or rashes no focal signs of weakness or numbness or altered sensation no complaints or anxiety or depression. Physical Exam Physical Exam: The patient appeared well nourished and normally developed. Vital signs as documented. Head exam is normocephalic atraumatic no scleral icterus Neck is without JVD, thyromegaly, or carotid bruits. Lungs are clear to auscultation, no focal loss of breath sounds Cardiac exam, Rhythm is regular.. No murmurs, rubs or gallops. Abdominal exam reveals normal bowel sounds, soft minor suprapubic tenderness Extremities are nonedematous and both pedal pulses are normal. Neurologic exam is alert and oriented, no focal loss of strength or sensation Skin is without bruises or rashes Psychologically is without concerns for anxiety or depression Results & Data Results & Data ([facility]) Vital Signs (Past 12 Hours) Vital Signs Temp Pulse Resp BP Pulse Ox 05/08/20 07:17 98.8 F 62 18 118/67 97 05/08/20 02:57 98.6 F 61 19 113/69 96 05/07/20 23:04 98.2 F 69 20 113/72 95 05/07/20 19:25 98.8 F 70 20 109/67 93 PG Care Time/CCT Total # of Minutes Spent Total Time Spent with Patient: Total time spent is greater than 50% in coordination of care (as documented) at patient's floor/unit and/or counseling patient: Coding Level of Care Code 15480 Subseq Hosp Care Lvl 3 Diagnoses Sepsis A41.9 Catheter-associated urinary tract infection T83.511A; N39.0 Encounter type: initial encounter Indwelling urinary catheter type: indwelling urethral catheter Abdominal pain R10.84 Abdominal location: generalized Urinary retention R33.9 NEEMA (acute kidney injury) N17.9 CKD (chronic kidney disease) stage 3, GFR 30-59 ml/min N18.3 Diabetes E11.9 HTN (hypertension), benign I10 Pulmonary nodules R91.8 Hyperlipidemia E78.5 Major depressive disorder F32.9 DVT prophylaxis Z29.9 (1) Catheter-associated urinary tract infection Encounter type: initial encounter Indwelling urinary catheter type: indwelling urethral catheter Qualified Code(s): T83.511A - Infection and inflammatory reaction due to indwelling urethral catheter, initial encounter; N39.0 - Urinary tract infection, site not specified (2) Abdominal pain Abdominal location: generalized Qualified Code(s): R10.84 - Generalized abdominal pain
[2020-05-08] MEDS: DULOXETINE HCL 30 MG CAP PO SCH (09:24)
[2020-05-08] MEDS: TAMSULOSIN HCL 0.4 MG CAP PO SCH (09:24)
[2020-05-08] MEDS: FINASTERIDE 5 MG TAB PO SCH (09:24)
[2020-05-08] MEDS: DULOXETINE HCL 60 MG CAP PO SCH (09:24)
--- NOTE | 2020-05-09 07:10 | Hospitalist Progress Note ---
Date of Service May 09, 2020 Assessment & Plan (1) Sepsis: With fever, tachycardia, tachypnea, and UTI staph and pseudomonas -Continue IV Zosyn with pseudomonas, does have sensitivity to levaquin maybe able to transition to po meds eventually, blood cultures do show staph in 3 of 4 and gran negative in one of four, this will mean at least a 2 week course, will have an Echo with the staph bacteremia. ID consult virtually 05/09 -Tylenol as needed for fevers (2) Catheter-associated urinary tract infection: With abnormal UA, Fontana catheter was clogged with clot and with urinary retention of 650 mL's on admission-changed on admission With sepsis and UTI as above -zosyn as staph is not mrsa at this time Fontana catheter was exchanged in the ER on 05/06 on finesteride and tamsulosin -Urology consultation-he was seen by urology and had cystoscopy in 11/2019, was supposed to return for urodynamics but did not due to COVID delay in getting an appointment -It is unclear why he has been having urinary retention for the last year or so-urology noted on cystoscopy that he did not have significantly enlarged prostate at that time reportedly was [facility] (3) Abdominal pain: Secondary to urinary retention and UTI -Improving now with Fontana catheter placement -Continue morphine as needed for pain Tylenol as needed for pain (4) Urinary retention: Urology consultation Fontana catheter in place -Continue finasteride, restarted flomax (5) NEEMA (acute kidney injury): resolving -Fontana catheter replaced in the ER -Holding home lisinopril (6) CKD (chronic kidney disease) stage 3, GFR 30-59 ml/min: As above, baseline creatinine appears to be around 1.5 -Avoid nephrotoxins (7) Diabetes: Has a diagnosis of diabetes in his chart, but he is not aware of this He is not on medication for this as an outpatient hemoglobin A1c 5.9 will have on carbohydrate conservative diet (8) HTN (hypertension), benign: Blood pressures are controlled off meds --Hold home lisinopril for acute kidney injury (9) Pulmonary nodules: Noted on previous chest imaging -Needs outpatient follow-up lung nodule clinic (10) Hyperlipidemia: Listed as a diagnosis, but not on medication for this Follow-up with PCP (11) Major depressive disorder: With PTSD also listed in the chart -Continue home duloxetine 90 mg daily (12) DVT prophylaxis: SCDs, no chemical anticoagulation given hematuria upon arrival with change out of Fontana catheter [facility] Admission and Anticipated Discharge Date Admission Date: May 06, 2020 Subjective pt denies any specific complaints he is preliminarily with staph plus pseudomonas in urine and likely in blood. will likely need ID evaluation for shelter recommendation, they will be virtual consult on 05/09 fontana continues to be draining well Review of Systems Review of Systems: Mild distress and fatigue no headache, blurry or double vision no speech or swallowing issues no chest pain, pressure or palpitations no shortness of breath, cough or wheezes Suprapubic abdominal pain, no nausea or vomiting, no diarrhea or constipation no dysuria, hematuria or frequency no focal joint pain or swelling no back pain, CVA tenderness or radicular pain no bruising, bleeding or rashes no focal signs of weakness or numbness or altered sensation no complaints or anxiety or depression. Physical Exam Physical Exam: The patient appeared well nourished and normally developed. Vital signs as documented. Head exam is normocephalic atraumatic no scleral icterus Neck is without JVD, thyromegaly, or carotid bruits. Lungs are clear to auscultation, no focal loss of breath sounds Cardiac exam, Rhythm is regular.. No murmurs, rubs or gallops. Abdominal exam reveals normal bowel sounds, soft minor suprapubic tenderness Extremities are nonedematous and both pedal pulses are normal. Neurologic exam is alert and oriented, no focal loss of strength or sensation Skin is without bruises or rashes Psychologically is without concerns for anxiety or depression Results & Data Results & Data ([facility]) Vital Signs (Past 12 Hours) Vital Signs Temp Pulse Pulse Resp BP Pulse Ox 05/09/20 07:03 97.9 F 75 20 123/80 96 05/09/20 04:57 98.2 F 71 18 122/75 94 05/08/20 23:59 72 05/08/20 23:06 98.6 F 71 18 128/73 92 PG Care Time/CCT Total # of Minutes Spent Total Time Spent with Patient: Total time spent is greater than 50% in coordination of care (as documented) at patient's floor/unit and/or counseling patient: Coding Level of Care Code 06743 Subseq Hosp Care Lvl 3 Diagnoses Sepsis A41.9 Catheter-associated urinary tract infection T83.511A; N39.0 Encounter type: initial encounter Indwelling urinary catheter type: indwelling urethral catheter Abdominal pain R10.84 Abdominal location: generalized Urinary retention R33.9 NEEMA (acute kidney injury) N17.9 CKD (chronic kidney disease) stage 3, GFR 30-59 ml/min N18.3 Diabetes E11.9 HTN (hypertension), benign I10 Pulmonary nodules R91.8 Hyperlipidemia E78.5 Major depressive disorder F32.9 DVT prophylaxis Z29.9 (1) Catheter-associated urinary tract infection Encounter type: initial encounter Indwelling urinary catheter type: indwelling urethral catheter Qualified Code(s): T83.511A - Infection and inflammatory reaction due to indwelling urethral catheter, initial encounter; N39.0 - Urinary tract infection, site not specified (2) Abdominal pain Abdominal location: generalized Qualified Code(s): R10.84 - Generalized abdominal pain
[2020-05-09] MEDS: FINASTERIDE 5 MG TAB PO SCH (08:02)
[2020-05-09] MEDS: DULOXETINE HCL 30 MG CAP PO SCH (08:02)
[2020-05-09] MEDS: TAMSULOSIN HCL 0.4 MG CAP PO SCH (08:02)
[2020-05-09] MEDS: DULOXETINE HCL 60 MG CAP PO SCH (08:02)
[2020-05-09] MEDS: PIPERACILLIN/TAZOBACTAM 3.375 GM in DEXTROSE 5% 100 ML IV SCH ×3 (08:02→23:33)
[2020-05-09 09:13] LABS: BUN Creatinine Ratio 10.9 (10-20); Calcium 9.1 mg/dl (8.5-10.1); Creatinine Clr Calc Pharmacy 51.4 ml/min; Est GFR (African American) 48.3; Est GFR (Non-African American) 41.7; Potassium 4.1 mmol/L (3.5-5.1)
--- NOTE | 2020-05-09 14:17 | XCELERA ---
[id number]
[2020-05-10 07:02] LABS: Hematocrit (blood only) 38.3 % (42-52); Hemoglobin 12.8 g/dL (14.0-18.0); Mean Corpuscular Hemoglobin 31.4 pg (25-34); Mean Corpuscular Hgb Conc 33.4 g/dL (32-36); Mean Corpuscular Volume 94.1 fL (80-100); Mean Platelet Volume 9.1 fL (7.4-10.4); Platelet Count 150 K/uL (130-400); RDW Coefficient of Variation 14.6 % (11.5-14.5); RDW Standard Deviation 50.3 fL (36.4-46.3); Red Blood Count 4.07 M/uL (4.7-6.1); White Blood Count 4.62 K/uL (4.8-10.8)
[2020-05-10 07:41] LABS: BUN Creatinine Ratio 13.3 (10-20); Calcium 9.3 mg/dl (8.5-10.1); Creatinine Clr Calc Pharmacy 49.3 ml/min; Est GFR (African American) 46.7; Est GFR (Non-African American) 40.3; Potassium 4.3 mmol/L (3.5-5.1)
[2020-05-10] MEDS: TAMSULOSIN HCL 0.4 MG CAP PO SCH (08:14)
[2020-05-10] MEDS: DULOXETINE HCL 30 MG CAP PO SCH (08:14)
[2020-05-10] MEDS: FINASTERIDE 5 MG TAB PO SCH (08:14)
[2020-05-10] MEDS: DULOXETINE HCL 60 MG CAP PO SCH (08:14)
[2020-05-10] MEDS: PIPERACILLIN/TAZOBACTAM 3.375 GM in DEXTROSE 5% 100 ML IV SCH ×3 (08:14→23:53)
--- NOTE | 2020-05-10 09:00 | Hospitalist Progress Note ---
Date of Service May 10, 2020 Assessment & Plan (1) Sepsis: With fever, tachycardia, tachypnea, and UTI with staph and pseudomonas. Also with Septicemia with Pseudomonas and MSSA Much improved/resolved--> remains afebrile, leukocytosis resolved -Continue IV Zosyn for Pseudomonas in urine and blood, does have sensitivity to Levaquin so will be able to transition to po meds eventually for this -blood cultures also with MSSA in 3 of 4 - this will mean at least a 2 week course, ECHO without valvular vegetation but does not r/o SBE -Could discharge on either IV Zosyn vs po Levaquin PLUS IV Dapto or Rocephin for the MSSA -repeat BCxs today (05/10/20) to ensure sterility before placing PICC line ID consult virtually 05/09-awaiting report (2) Catheter-associated urinary tract infection: With abnormal UA, Curry catheter was clogged with clot and with urinary retention of 650 mL's on admission-changed on admission With sepsis and UTI as above -continue zosyn as above Curry catheter was exchanged in the ER on 05/06 on finasteride and tamsulosin -Urology consultation-he was seen by urology as outpt and had cystoscopy in 08/2019, was supposed to return for urodynamics but did not due to COVID delay in getting an appointment -It is unclear why he has been having urinary retention for the last year or so- urology noted on cystoscopy that he did not have significantly enlarged prostate at that time reportedly was some issue with intermittent [facility] cath while at the [facility] -Urology saw him here and recommended continued treatment of infection but no shelter recommendations--> will ensure gets outpt f/u with Urol after discharge (3) Abdominal pain: Secondary to urinary retention and UTI -Now resolved with Curry catheter replacement and retention resolved -no need for morphine-will dc Tylenol as needed for pain (4) Urinary retention: Urology consultation-appreciated, f/u outpt Curry catheter replaced in ER for 650mL of urine with small clot blocking outflow -Continue finasteride, restarted flomax this admission (5) NEEMA (acute kidney injury): resolved, 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 and stable -Curry catheter replaced in the ER -Holding home lisinopril and BPs ok, would not restart at this point (6) CKD (chronic kidney disease) stage 3, GFR 30-59 ml/min: As above, baseline creatinine appears to be around 1.5, now stable at 1.7 -Avoid nephrotoxins (7) Diabetes: Has a diagnosis of diabetes in his chart, but he is not aware of this He is not on medication for this as an outpatient hemoglobin A1c 5.9% here so has Prediabetes - will have on carbohydrate conservative diet (8) HTN (hypertension), benign: Blood pressures are controlled off meds --continue to hold home lisinopril for acute kidney injury and may not need to restart (9) Pulmonary nodules: Noted on previous chest imaging -Needs outpatient follow-up lung nodule clinic (10) Hyperlipidemia: Listed as a diagnosis, but not on medication for this Follow-up with PCP (11) Major depressive disorder: With PTSD also listed in the chart -Continue home duloxetine 90 mg daily (12) DVT prophylaxis: SCDs, no chemical anticoagulation given hematuria upon arrival but can start now given prolonged stay and no further hematuria -add Lovenox SQ Stable for downgrade off tele Eventually back to [facility] and they need 24 hours notice to order in abx--> will discharge on 05/12 or 05/13 if BCxs from 05/10 remain negative and PICC line placed 05/12 if [facility] can get the abx delivered Admission and Anticipated Discharge Date Admission Date: May 06, 2020 Subjective Pt feels well, no complaints. Is eating and drinking, moving bowels. Denies CP/SOB, no N/V. No abd pain and Curry draining, no hematuria. Remains afebrile. I spoke to the RN at the [facility] and they are able to order in IV abx. Review of Systems Review of Systems: All systems reviewed & are unremarkable except as noted in HPI & below Physical Exam Constitutional: WD/WN, vitals as above Eyes: + anicteric sclerae ENMT: external ear and nose normal, oropharynx normal (Very poor dentition) Neck: trachea midline, no thyromegaly Respiratory: normal respiratory effort, lungs clear to auscultation Cardiovascular: RRR, no murmur, no edema Chest (Breasts): Chest: normal inspection of chest Gastrointestinal (Abdomen): normal bowel sounds, soft, nontender, no hepatosplenomegaly Percussion/Palpation: + hernia (Small reducible umbilical hernia) Musculoskeletal: Extremities: extremities normal to inspection; no cyanosis and no clubbing Skin: no rashes, warm and dry Neurologic: moves all extremities and awake; no focal motor deficits Psychiatric: A+Ox3, euthymic affect Genitourinary: Curry in place with clear yellow urine, no hematuria Lymphatic: no lymphedema Results & Data Results & Data ([facility]) Vital Signs (Past 12 Hours) Vital Signs Temp Pulse Pulse Resp BP Pulse Ox 05/10/20 07:19 66 05/10/20 07:03 36.6 C 67 18 122/75 94 05/10/20 03:15 36.5 C 63 20 129/72 94 05/09/20 23:20 36.6 C 62 18 129/76 93 05/09/20 23:12 71 Laboratory Results 05/10/20 05/10/20 05/09/20 Range/Units 06:50 06:50 08:19 WBC 4.62 L (4.8-10.8) K/uL RBC 4.07 L (4.7-6.1) M/uL Hgb 12.8 L (14.0-18.0) g/dL Hct 38.3 L (42-52) % MCV 94.1 (80-100) fL MCH 31.4 (25-34) pg MCHC 33.4 (32-36) g/dL RDW Std Deviation 50.3 H (36.4-46.3) fL RDW Coeff of Osmin 14.6 H (11.5-14.5) % Plt Count 150 (130-400) K/uL MPV 9.1 (7.4-10.4) fL Sodium 139 139 (136-145) mmol/L Potassium 4.3 4.1 (3.5-5.1) mmol/L Chloride 108 H 109 H (98-107) mmol/L Carbon Dioxide 23 22 (21-32) mmol/L Anion Gap 8.0 8.0 (3-11) BUN 24 H 19 H (7-18) mg/dl Creatinine 1.77 H 1.72 H (0.6-1.4) mg/dl Est Cr Clr Drug Dosing 49.3 51.4 ml/min Est GFR ( Amer) 46.7 48.3 Est GFR (Non-Af Amer) 40.3 41.7 BUN/Creatinine Ratio 13.3 10.9 (10-20) Glucose 98 113 H (70-99) mg/dl Calcium 9.3 9.1 (8.5-10.1) mg/dl PG Care Time/CCT Total # of Minutes Spent Total Time Spent with Patient: Total time spent is greater than 50% in coordination of care (as documented) at patient's floor/unit and/or counseling patient: Coding Level of Care Code 16242 Subseq Hosp Care Lvl 2 Diagnoses Sepsis A41.9 Catheter-associated urinary tract infection T83.511A; N39.0 Encounter type: initial encounter Indwelling urinary catheter type: indwelling urethral catheter Abdominal pain R10.84 Abdominal location: generalized Urinary retention R33.9 NEEMA (acute kidney injury) N17.9 CKD (chronic kidney disease) stage 3, GFR 30-59 ml/min N18.3 Diabetes E11.9 HTN (hypertension), benign I10 Pulmonary nodules R91.8 Hyperlipidemia E78.5 Major depressive disorder F32.9 DVT prophylaxis Z29.9 (1) Catheter-associated urinary tract infection Encounter type: initial encounter Indwelling urinary catheter type: indwellin g urethral catheter Qualified Code(s): T83.511A - Infection and inflammatory reaction due to indwelling urethral catheter, initial encounter; N39.0 - Urinary tract infection, site not specified (2) Abdominal pain Abdominal location: generalized Qualified Code(s): R10.84 - Generalized abdominal pain
[2020-05-10] MEDS: ENOXAPARIN INJ 40 MG/0.4 ML SYR SQ SCH (10:18)
[2020-05-11 06:13] LABS: BUN Creatinine Ratio 14.7 (10-20); Calcium 8.9 mg/dl (8.5-10.1); Creatinine Clr Calc Pharmacy 45.2 ml/min; Est GFR (Non-African American) 36.3; Potassium 4.3 mmol/L (3.5-5.1)
[2020-05-11] MEDS: PIPERACILLIN/TAZOBACTAM 3.375 GM in DEXTROSE 5% 100 ML IV SCH ×2 (07:49→15:50)
[2020-05-11] MEDS: TAMSULOSIN HCL 0.4 MG CAP PO SCH (07:50)
[2020-05-11] MEDS: DULOXETINE HCL 60 MG CAP PO SCH (07:50)
[2020-05-11] MEDS: DULOXETINE HCL 30 MG CAP PO SCH (07:50)
[2020-05-11] MEDS: FINASTERIDE 5 MG TAB PO SCH (07:50)
[2020-05-11] MEDS: ENOXAPARIN INJ 40 MG/0.4 ML SYR SQ SCH (09:35)
--- NOTE | 2020-05-11 12:26 | Hospitalist Progress Note ---
Date of Service May 11, 2020 Assessment & Plan (1) Sepsis: With fever, tachycardia, tachypnea, and UTI with staph and pseudomonas. Also with Septicemia with Pseudomonas and MSSA Much improved/resolved--> remains afebrile, leukocytosis resolved -Continue IV Zosyn for Pseudomonas in urine and blood, does have sensitivity to Levaquin so will be able to transition to po meds eventually for this -blood cultures also with MSSA in 3 of 4 - this will mean at least a 2 week course, ECHO without valvular vegetation but does not r/o SBE -Could discharge on either IV Zosyn vs po Levaquin PLUS IV Dapto or Rocephin for the MSSA -repeat BCxs today (05/10/20) to ensure sterility before placing PICC line ID consult virtually 05/09-awaiting report (2) Catheter-associated urinary tract infection: With abnormal UA, Gutierrez catheter was clogged with clot and with urinary retention of 650 mL's on admission-changed on admission With sepsis and UTI as above -continue zosyn as above Gutierrez catheter was exchanged in the ER on 05/06 on finasteride and tamsulosin -Urology consultation-he was seen by urology as outpt and had cystoscopy in 08/2019, was supposed to return for urodynamics but did not due to COVID delay in getting an appointment -It is unclear why he has been having urinary retention for the last year or so- urology noted on cystoscopy that he did not have significantly enlarged prostate at that time reportedly was some issue with intermittent st cath while at the skilled nursing -Urology saw him here and recommended continued treatment of infection but no detention recommendations--> will ensure gets outpt f/u with Urol after discharge (3) Abdominal pain: Secondary to urinary retention and UTI -Now resolved with Gutierrez catheter replacement and retention resolved -no need for morphine-will dc Tylenol as needed for pain (4) Urinary retention: Urology consultation-appreciated, f/u outpt Gutierrez catheter replaced in ER for 650mL of urine with small clot blocking outflow -Continue finasteride, restarted flomax this admission (5) NEEMA (acute kidney injury): resolved, 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 and stable -Gutierrez catheter replaced in the ER -Holding home lisinopril and BPs ok, would not restart at this point (6) CKD (chronic kidney disease) stage 3, GFR 30-59 ml/min: As above, baseline creatinine appears to be around 1.5, now stable at 1.7 -Avoid nephrotoxins (7) Diabetes: Has a diagnosis of diabetes in his chart, but he is not aware of this He is not on medication for this as an outpatient hemoglobin A1c 5.9% here so has Prediabetes - will have on carbohydrate conservative diet (8) HTN (hypertension), benign: Blood pressures are controlled off meds --continue to hold home lisinopril for acute kidney injury and may not need to restart (9) Pulmonary nodules: Noted on previous chest imaging -Needs outpatient follow-up lung nodule clinic (10) Hyperlipidemia: Listed as a diagnosis, but not on medication for this Follow-up with PCP (11) Major depressive disorder: With PTSD also listed in the chart -Continue home duloxetine 90 mg daily (12) DVT prophylaxis: SCDs, no chemical anticoagulation given hematuria upon arrival but can start now given prolonged stay and no further hematuria -add Lovenox SQ Stable for downgrade off tele Eventually back to skilled nursing-I called skilled nursing and they need 24 hours notice to order in abx--> will discharge on 05/12 or 05/13 if BCxs from 05/10 remain negative and PICC line placed 05/12 if skilled nursing can get the abx delivered Admission and Anticipated Discharge Date Admission Date: May 06, 2020 Results & Data Results & Data ([facility]) Vital Signs (Past 12 Hours) Vital Signs Temp Pulse Resp BP Pulse Ox 05/11/20 07:09 36.5 C 59 L 18 125/75 93 PG Care Time/CCT Total # of Minutes Spent Total Time Spent with Patient: Total time spent is greater than 50% in coordination of care (as documented) at patient's floor/unit and/or counseling patient: Coding Level of Care Code 73996 Subseq Hosp Care Lvl 3 Diagnoses Sepsis A41.9 Catheter-associated urinary tract infection T83.511A; N39.0 Encounter type: initial encounter Indwelling urinary catheter type: indwelling urethral catheter Abdominal pain R10.84 Abdominal location: generalized Urinary retention R33.9 NEEMA (acute kidney injury) N17.9 CKD (chronic kidney disease) stage 3, GFR 30-59 ml/min N18.3 Diabetes E11.9 HTN (hypertension), benign I10 Pulmonary nodules R91.8 Hyperlipidemia E78.5 Major depressive disorder F32.9 DVT prophylaxis Z29.9 (1) Catheter-associated urinary tract infection Encounter type: initial encounter Indwelling urinary catheter type: indwelling urethral catheter Qualified Code(s): T83.511A - Infection and inflammatory reaction due to indwelling urethral catheter, initial encounter; N39.0 - Urinary tract infection, site not specified (2) Abdominal pain Abdominal location: generalized Qualified Code(s): R10.84 - Generalized abdominal pain
--- NOTE | 2020-05-11 12:39 | Hospitalist Progress Note ---
Date of Service May 11, 2020 Assessment & Plan (1) Sepsis: With fever, tachycardia, tachypnea, and UTI with staph and pseudomonas. Also with Septicemia with Pseudomonas and MSSA Much improved/resolved--> remains afebrile, leukocytosis resolved -Continue IV Zosyn for Pseudomonas and MSSA. Total of 14 days of therapy. - ECHO without valvular vegetation -repeat BCxs drawn May [address] PICC line tomorrow, May 12. ID consult virtually 05/09-noted (2) Catheter-associated urinary tract infection: With abnormal UA, Gutierrez catheter was clogged with clot and with urinary retention of 650 mL's on admission-changed on admission With sepsis and UTI as above -continue zosyn as above Gutierrez catheter was exchanged in the ER on 05/06 on finasteride and tamsulosin -Urology consultation-he was seen by urology as outpt and had cystoscopy in 08/2019, was supposed to return for urodynamics but did not due to COVID delay in getting an appointment -It is unclear why he has been having urinary retention for the last year or so- urology noted on cystoscopy that he did not have significantly enlarged prostate at that time reportedly was some issue with intermittent st cath while at the senior living -Urology saw him here and recommended continued treatment of infection but 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--> will ensure gets outpt f/u with Urol after discharge (3) Abdominal pain: Secondary to urinary retention and UTI -Now resolved with Gutierrez catheter replacement and retention resolved -no need for morphine-will dc Tylenol as needed for pain (4) Urinary retention: Urology consultation-appreciated, f/u outpt Gutierrez catheter replaced in ER for 650mL of urine with small clot blocking outflow -Continue finasteride, restarted flomax this admission (5) NEEMA (acute kidney injury): resolved, 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 and stable -Gutierrez catheter replaced in the ER (6) CKD (chronic kidney disease) stage 3, GFR 30-59 ml/min: As above, baseline creatinine appears to be around 1.5, now stable -Avoid nephrotoxins (7) Diabetes: Has a diagnosis of diabetes in his chart, but he is not aware of this He is not on medication for this as an outpatient hemoglobin A1c 5.9% here so has Prediabetes - will have on carbohydrate conservative diet (8) HTN (hypertension), benign: Blood pressures are controlled (9) Pulmonary nodules: Noted on previous chest imaging -Needs outpatient follow-up lung nodule clinic (10) Hyperlipidemia: Listed as a diagnosis, but not on medication for this Follow-up with PCP (11) Major depressive disorder: With PTSD also listed in the chart -Continue home duloxetine 90 mg daily (12) DVT prophylaxis: SCDs, no chemical anticoagulation given hematuria upon arrival but can start now given prolonged stay and no further hematuria -continue Lovenox SQ Stable for downgrade off tele Eventually back to senior living- they need 24 hours notice to order in abx--> will discharge on 05/13 if BCxs from 05/10 remain negative and PICC line placed 05/12 if senior living can get the abx delivered ( zosyn ) Admission and Anticipated Discharge Date Admission Date: May 06, 2020 Subjective Alert and oriented. Pseudomonas and MSSA should be treated by Zosyn which will continue for a total of 14 days. Blood cultures obtained May 10 remain negative. Hopefully PICC line can be placed tomorrow and he can be discharged back to the senior living. Afebrile with stable vital signs Review of Systems Review of Systems: All systems reviewed & are unremarkable except as noted in HPI & below Physical Exam Constitutional: WD/WN, vitals as above Eyes: PERRL, conjunctivae normal, anicteric sclerae ENMT: external ear and nose normal, oropharynx normal Neck: trachea midline, no thyromegaly Respiratory: normal respiratory effort, lungs clear to auscultation Cardiovascular: RRR, no murmur, no edema Gastrointestinal (Abdomen): normal bowel sounds, soft, nontender, no hepatosplenomegaly Musculoskeletal: no cyanosis or clubbing, extremities motor strength 5/5 Skin: no rashes, warm and dry Neurologic: CN's II-XI intact bilaterally Genitourinary: Gutierrez catheter in place Results & Data Results & Data ([facility]) Vital Signs (Past 12 Hours) Vital Signs Temp Pulse Resp BP Pulse Ox 05/11/20 07:09 36.5 C 59 L 18 125/75 93 Laboratory Results 05/06/20 05/06/20 05/06/20 Range/Units 11:35 11:32 11:32 WBC (4.8-10.8) K/uL RBC (4.7-6.1) M/uL Hgb (14.0-18.0) g/dL Hct (42-52) % MCV (80-100) fL MCH (25-34) pg MCHC (32-36) g/dL RDW Std Deviation (36.4-46.3) fL RDW Coeff of Osmin (11.5-14.5) % Plt Count (130-400) K/uL MPV (7.4-10.4) fL Immature Gran % (Auto) % Neut % (Auto) % Lymph % (Auto) % [place] % (Auto) % Eos % (Auto) % Baso % (Auto) % Neut # (Auto) (1.4-6.5) K/uL Lymph # (Auto) (1.2-3.4) K/uL [place] # (Auto) (0.11-0.59) K/uL Eos # (Auto) (0-0.5) K/uL Baso # (Auto) (0-0.2) K/uL Immature Gran # (Auto) (0.00-0.02) K/uL ESR (0-14) mm/hr PT 10.5 (9.0-12.0) Seconds INR 1.0 (0.9-1.1) APTT 25.0 (21.0-31.0) Seconds PTT Ratio 0.9 Sodium (136-145) mmol/L Potassium (3.5-5.1) mmol/L Chloride (98-107) mmol/L Carbon Dioxide (21-32) mmol/L Anion Gap (3-11) BUN (7-18) mg/dl Creatinine (0.6-1.4) mg/dl Est Cr Clr Drug Dosing ml/min Est GFR ( Amer) Est GFR (Non-Af Amer) BUN/Creatinine Ratio (10-20) Glucose (70-99) mg/dl Lactate 1.8 (0.4-2.0) mmol/L Calcium (8.5-10.1) mg/dl Magnesium (1.8-2.4) mg/dl Total Bilirubin (0.2-1) mg/dl AST (15-37) U/L ALT (12-78) U/L Alkaline Phosphatase (45-117) U/L Troponin I (0-0.045) ng/ml C-Reactive Protein (0-0.29) mg/dl Total Protein (6.4-8.2) gm/dl Albumin (3.4-5.0) gm/dl Globulin (2.5-4.0) gm/dl Albumin/Globulin Ratio (0.9-2) Procalcitonin (0-0.5) ng/ml Urine Color Yellow Urine Appearance Cloudy A (Clear) Urine pH 6.5 (4.5-7.5) Ur Specific [place] 1.011 (1.000-1.030) Urine Protein Negative (Negative) Urine Glucose (UA) Negative (Negative) Urine Ketones Negative (Negative) Urine Blood 3+ H (Negative) Urine Nitrite Negative (Negative) Urine Bilirubin Negative (Negative) Urine Urobilinogen Negative (Negative) Ur Leukocyte Esterase 2+ H (Negative) Urine WBC (Auto) >30 H (0-5) /hpf Urine RBC (Auto) >30 H (0-4) /hpf U Hyaline Cast (Auto) 1-5 (0-5) /lpf U Epithel Cells (Auto) 0-5 (0-5) /lpf Urine Bacteria (Auto) Negative (Negative) 05/06/20 05/06/20 05/06/20 Range/Units 11:32 11:32 11:32 WBC 9.67 (4.8-10.8) K/uL RBC 3.96 L (4.7-6.1) M/uL Hgb 12.6 L (14.0-18.0) g/dL Hct 36.8 L (42-52) % MCV 92.9 (80-100) fL MCH 31.8 (25-34) pg MCHC 34.2 (32-36) g/dL RDW Std Deviation 46.3 (36.4-46.3) fL RDW Coeff of Osmin 13.6 (11.5-14.5) % Plt Count 213 (130-400) K/uL MPV 8.9 (7.4-10.4) fL Immature Gran % (Auto) 0.2 % Neut % (Auto) 95.4 % Lymph % (Auto) 3.3 % [place] % (Auto) 1.0 % Eos % (Auto) 0.0 % Baso % (Auto) 0.1 % Neut # (Auto) 9.22 H (1.4-6.5) K/uL Lymph # (Auto) 0.32 L (1.2-3.4) K/uL [place] # (Auto) 0.10 L (0.11-0.59) K/uL Eos # (Auto) 0.00 (0-0.5) K/uL Baso # (Auto) 0.01 (0-0.2) K/uL Immature Gran # (Auto) 0.02 (0.00-0.02) K/uL ESR (0-14) mm/hr PT (9.0-12.0) Seconds INR (0.9-1.1) APTT (21.0-31.0) Seconds PTT Ratio Sodium 130 L (136-145) mmol/L Potassium 4.3 (3.5-5.1) mmol/L Chloride 100 (98-107) mmol/L Carbon Dioxide 21 (21-32) mmol/L Anion Gap 9.0 (3-11) BUN 17 (7-18) mg/dl Creatinine 1.83 H (0.6-1.4) mg/dl Est Cr Clr Drug Dosing 51.3 ml/min Est GFR ( Amer) 44.8 Est GFR (Non-Af Amer) 38.7 BUN/Creatinine Ratio 9.5 L (10-20) Glucose 117 H (70-99) mg/dl Lactate (0.4-2.0) mmol/L Calcium 8.8 (8.5-10.1) mg/dl Magnesium 1.9 (1.8-2.4) mg/dl Total Bilirubin 0.7 (0.2-1) mg/dl AST 18 (15-37) U/L ALT 23 (12-78) U/L Alkaline Phosphatase 67 (45-117) U/L Troponin I < 0.015 (0-0.045) ng/ml C-Reactive Protein 5.37 H (0-0.29) mg/dl Total Protein 7.4 (6.4-8.2) gm/dl Albumin 3.5 (3.4-5.0) gm/dl Globulin 3.9 (2.5-4.0) gm/dl Albumin/Globulin Ratio 0.9 (0.9-2) Procalcitonin 0.36 (0-0.5) ng/ml Urine Color Urine Appearance (Clear) Urine pH (4.5-7.5) Ur Specific [place] (1.000-1.030) Urine Protein (Negative) Urine Glucose (UA) (Negative) Urine Ketones (Negative) Urine Blood (Negative) Urine Nitrite (Negative) Urine Bilirubin (Negative) Urine Urobilinogen (Negative) Ur Leukocyte Esterase (Negative) Urine WBC (Auto) (0-5) /hpf Urine RBC (Auto) (0-4) /hpf U Hyaline Cast (Auto) (0-5) /lpf U Epithel Cells (Auto) (0-5) /lpf Urine Bacteria (Auto) (Negative) 05/06/20 Range/Units 11:32 WBC (4.8-10.8) K/uL RBC (4.7-6.1) M/uL Hgb (14.0-18.0) g/dL Hct (42-52) % MCV (80-100) fL MCH (25-34) pg MCHC (32-36) g/dL RDW Std Deviation (36.4-46.3) fL RDW Coeff of Osmin (11.5-14.5) % Plt Count (130-400) K/uL MPV (7.4-10.4) fL Immature Gran % (Auto) % Neut % (Auto) % Lymph % (Auto) % [place] % (Auto) % Eos % (Auto) % Baso % (Auto) % Neut # (Auto) (1.4-6.5) K/uL Lymph # (Auto) (1.2-3.4) K/uL [place] # (Auto) (0.11-0.59) K/uL Eos # (Auto) (0-0.5) K/uL Baso # (Auto) (0-0.2) K/uL Immature Gran # (Auto) (0.00-0.02) K/uL ESR 16 H (0-14) mm/hr PT (9.0-12.0) Seconds INR (0.9-1.1) APTT (21.0-31.0) Seconds PTT Ratio Sodium (136-145) mmol/L Potassium (3.5-5.1) mmol/L Chloride (98-107) mmol/L Carbon Dioxide (21-32) mmol/L Anion Gap (3-11) BUN (7-18) mg/dl Creatinine (0.6-1.4) mg/dl Est Cr Clr Drug Dosing ml/min Est GFR ( Amer) Est GFR (Non-Af Amer) BUN/Creatinine Ratio (10-20) Glucose (70-99) mg/dl Lactate (0.4-2.0) mmol/L Calcium (8.5-10.1) mg/dl Magnesium (1.8-2.4) mg/dl Total Bilirubin (0.2-1) mg/dl AST (15-37) U/L ALT (12-78) U/L Alkaline Phosphatase (45-117) U/L Troponin I (0-0.045) ng/ml C-Reactive Protein (0-0.29) mg/dl Total Protein (6.4-8.2) gm/dl Albumin (3.4-5.0) gm/dl Globulin (2.5-4.0) gm/dl Albumin/Globulin Ratio (0.9-2) Procalcitonin (0-0.5) ng/ml Urine Color Urine Appearance (Clear) Urine pH (4.5-7.5) Ur Specific [place] (1.000-1.030) Urine Protein (Negative) Urine Glucose (UA) (Negative) Urine Ketones (Negative) Urine Blood (Negative) Urine Nitrite (Negative) Urine Bilirubin (Negative) Urine Urobilinogen (Negative) Ur Leukocyte Esterase (Negative) Urine WBC (Auto) (0-5) /hpf Urine RBC (Auto) (0-4) /hpf U Hyaline Cast (Auto) (0-5) /lpf U Epithel Cells (Auto) (0-5) /lpf Urine Bacteria (Auto) (Negative) PG Care Time/CCT Total # of Minutes Spent Total Time Spent with Patient: Total time spent is greater than 50% in coordination of care (as documented) at patient's floor/unit and/or counseling patient: Coding Level of Care Code 58580 Subseq Hosp Care Lvl 3 Diagnoses Sepsis A41.9 Catheter-associated urinary tract infection T83.511A; N39.0 Encounter type: initial encounter Indwelling urinary catheter type: indwelling urethral catheter Abdominal pain R10.84 Abdominal location: generalized Urinary retention R33.9 NEEMA (acute kidney injury) N17.9 CKD (chronic kidney disease) stage 3, GFR 30-59 ml/min N18.3 Diabetes E11.9 HTN (hypertension), benign I10 Pulmonary nodules R91.8 Hyperlipidemia E78.5 Major depressive disorder F32.9 DVT prophylaxis Z29.9 (1) Catheter-associated urinary tract infection Encounter type: initial encounter Indwelling urinary catheter type: indwelling urethral catheter Qualified Code(s): T83.511A - Infection and inflammatory reaction due to indwelling urethral catheter, initial encounter; N39.0 - Urinary tract infection, site not specified (2) Abdominal pain Abdominal location: generalized Qualified Code(s): R10.84 - Generalized abdominal pain
[2020-05-12] MEDS: PIPERACILLIN/TAZOBACTAM 3.375 GM in DEXTROSE 5% 100 ML IV SCH ×4 (00:11→23:55)
[2020-05-12 06:04] LABS: Hematocrit (blood only) 39.5 % (42-52); Hemoglobin 13.1 g/dL (14.0-18.0); Mean Corpuscular Hemoglobin 31.1 pg (25-34); Mean Corpuscular Hgb Conc 33.2 g/dL (32-36); Mean Corpuscular Volume 93.8 fL (80-100); Mean Platelet Volume 9.2 fL (7.4-10.4); Platelet Count 201 K/uL (130-400); RDW Coefficient of Variation 14.5 % (11.5-14.5); RDW Standard Deviation 49.5 fL (36.4-46.3); Red Blood Count 4.21 M/uL (4.7-6.1); White Blood Count 6.68 K/uL (4.8-10.8)
[2020-05-12 06:44] LABS: BUN Creatinine Ratio 14.9 (10-20); Calcium 9.3 mg/dl (8.5-10.1); Creatinine Clr Calc Pharmacy 45.2 ml/min; Est GFR (Non-African American) 36.3; Potassium 4.3 mmol/L (3.5-5.1)
[2020-05-12] MEDS: TAMSULOSIN HCL 0.4 MG CAP PO SCH (08:41)
[2020-05-12] MEDS: DULOXETINE HCL 30 MG CAP PO SCH (08:42)
[2020-05-12] MEDS: FINASTERIDE 5 MG TAB PO SCH (08:42)
[2020-05-12] MEDS: DULOXETINE HCL 60 MG CAP PO SCH (08:42)
[2020-05-12] MEDS: ENOXAPARIN INJ 40 MG/0.4 ML SYR SQ SCH (10:21)
--- NOTE | 2020-05-12 11:59 | Hospitalist Progress Note ---
Date of Service May 12, 2020 Assessment & Plan (1) Sepsis: With fever, tachycardia, tachypnea, and UTI with staph and pseudomonas. Also with Septicemia with Pseudomonas and MSSA Much improved/resolved--> remains afebrile, leukocytosis resolved -Continue IV Zosyn for Pseudomonas and MSSA. Total of 14 days of therapy. Currently day 7 - ECHO without valvular vegetation -repeat BCxs drawn May [address] PICC line today, May 12. ID consult virtually 05/09-noted (2) Catheter-associated urinary tract infection: With abnormal UA, Gutierrez catheter was clogged with clot and with urinary retention of 650 mL's on admission-changed on admission With sepsis and UTI as above -continue zosyn as above Gutierrez catheter was exchanged in the ER on 05/06 on finasteride and tamsulosin -Urology consultation-he was seen by urology as outpt and had cystoscopy in 08/2019, was supposed to return for urodynamics but did not due to COVID delay in getting an appointment -It is unclear why he has been having urinary retention for the last year or so- urology noted on cystoscopy that he did not have significantly enlarged prostate at that time reportedly was some issue with intermittent [facility] cath [facility] at [facility] -Urology saw him here and recommended continued treatment of infection but no rn long term care recommendations--> will ensure gets outpt f/u with Urol after discharge (3) Abdominal pain: Secondary to urinary retention and UTI -Now resolved with Gutierrez catheter replacement and retention resolved Tylenol as needed for pain (4) Urinary retention: Urology consultation-appreciated, f/u outpt Gutierrez catheter replaced in ER for 650mL of urine with small clot blocking outflow -Continue finasteride, restarted flomax this admission (5) NEEMA (acute kidney injury): resolved -Gutierrez catheter replaced in the ER (6) CKD (chronic kidney disease) stage 3, GFR 30-59 ml/min: As above, baseline creatinine appears to be around 1.5, now stable -Avoid nephrotoxins (7) Diabetes: Has a diagnosis of diabetes in his chart, but he is not aware of this He is not on medication for this as an outpatient hemoglobin A1c 5.9% here so has Prediabetes - will have on carbohydrate conservative diet (8) HTN (hypertension), benign: Blood pressures are controlled (9) Pulmonary nodules: Noted on previous chest imaging -Needs outpatient follow-up lung nodule clinic (10) Hyperlipidemia: Listed as a diagnosis, but not on medication for this Follow-up with PCP (11) Major depressive disorder: With PTSD also listed in the chart -Continue home duloxetine 90 mg daily (12) DVT prophylaxis: SCDs, no chemical anticoagulation given hematuria upon arrival but can start now given prolonged stay and no further hematuria -continue Lovenox SQ Stable for downgrade off tele Eventually back to [facility]- anticipate discharge May 13 to continue IV Zosyn for 7 more days. Admission and Anticipated Discharge Date Admission Date: May 06, 2020 Subjective Alert. Blood cultures done May 10 remain negative to date. He is on day 7 of Zosyn therapy and will rule will require 7 more days. PICC line will be placed today. Consent form has been signed. He should be able to return to the [facility] tomorrow on IV Zosyn therapy for 1 more week. Review of Systems Review of Systems: no headache, blurry or double vision no speech or swallowing issues no chest pain, pressure or palpitations no shortness of breath, cough or wheezes no nausea or vomiting, no diarrhea or constipation no dysuria, hematuria or frequency no focal joint pain or swelling no back pain, CVA tenderness or radicular pain no bruising, bleeding or rashes no focal signs of weakness or numbness or altered sensation no complaints or anxiety or depression. Physical Exam Constitutional: WD/WN, vitals as above Eyes: PERRL, conjunctivae normal, anicteric sclerae ENMT: external ear and nose normal, oropharynx normal Neck: trachea midline, no thyromegaly Respiratory: normal respiratory effort, lungs clear to auscultation Cardiovascular: RRR, no murmur, no edema Gastrointestinal (Abdomen): normal bowel sounds, soft, nontender, no hepatosplenomegaly Musculoskeletal: no cyanosis or clubbing, extremities motor strength 5/5 Skin: no rashes, warm and dry Neurologic: CN's II-XI intact bilaterally Results & Data Results & Data ([facility]) Vital Signs (Past 12 Hours) Vital Signs Temp Pulse Resp BP Pulse Ox 05/12/20 07:08 36.8 C 73 20 146/77 H 92 Laboratory Results 05/12/20 05:41 05/12/20 05:41 PG Care Time/CCT Total # of Minutes Spent Total Time Spent with Patient: Total time spent is greater than 50% in coordination of care (as documented) at patient's floor/unit and/or counseling patient: Coding Level of Care Code 60049 Subseq Hosp Care Lvl 3 Diagnoses Sepsis A41.9 Catheter-associated urinary tract infection T83.511A; N39.0 Encounter type: initial encounter Indwelling urinary catheter type: indwelling urethral catheter Abdominal pain R10.84 Abdominal location: generalized Urinary retention R33.9 NEEMA (acute kidney injury) N17.9 CKD (chronic kidney disease) stage 3, GFR 30-59 ml/min N18.3 Diabetes E11.9 HTN (hypertension), benign I10 Pulmonary nodules R91.8 Hyperlipidemia E78.5 Major depressive disorder F32.9 DVT prophylaxis Z29.9 (1) Catheter-associated urinary tract infection Encounter type: initial encounter Indwelling urinary catheter type: indwelling urethral catheter Qualified Code(s): T83.511A - Infection and inflammatory reaction due to indwelling urethral catheter, initial encounter; N39.0 - Urinary tract infection, site not specified (2) Abdominal pain Abdominal location: generalized Qualified Code(s): R10.84 - Generalized abdominal pain
[2020-05-13 08:08] LABS: Creatinine Clr Calc Pharmacy 45.9 ml/min; Est GFR (African American) 42.8
[2020-05-13] MEDS: DULOXETINE HCL 30 MG CAP PO SCH (08:44)
[2020-05-13] MEDS: DULOXETINE HCL 60 MG CAP PO SCH (08:44)
[2020-05-13] MEDS: FINASTERIDE 5 MG TAB PO SCH (08:44)
[2020-05-13] MEDS: TAMSULOSIN HCL 0.4 MG CAP PO SCH (08:44)
[2020-05-13] MEDS: PIPERACILLIN/TAZOBACTAM 3.375 GM in DEXTROSE 5% 100 ML IV SCH (08:45)
[2020-05-13] MEDS: ENOXAPARIN INJ 40 MG/0.4 ML SYR SQ SCH (08:50)
--- NOTE | 2020-05-13 12:17 | Discharge Summary ---
Date of Service May 13, 2020 Admission HPI Per Admitting Provider This patient is a 64-year-old male inmate with a history of DM 2, hyperlipidemia, HTN, and BPH/urinary retention with chronic indwelling Gutierrez catheter who presents to the ER with suprapubic abdominal pain and urinary r etention. He was found to have a fever on arrival. His Gutierrez catheter was removed and replaced. The nurse that replaced it reported she got out a blood clot followed by 650 mL's of urine with placement of the new Gutierrez. He is also having some loose stools, no nausea or vomiting. Denies chest pain or shortness of breath, no cough, no headache or sore throat, no lightheadedness. He has no COVID-19 exposures that he knows of and the guards at the bedside report no COVID cases that they are aware of at the [facility]. On laboratory values he did not have a leukocytosis, but he was hyponatremic at 130, and his creatinine was elevated above baseline at 1.83. His CRP was elevated at 5.3, and a procalcitonin was 0.36. His urine was obviously infected, and a rapid COVID-19 test was negative. He was febrile, tachycardic, and tachypneic upon arrival. He was given 2 L of normal saline, a dose of IV Zosyn, IV fentanyl for pain, and Zofran for nausea. A CT of the abdomen/pelvis was performed which showed no evidence of bowel obstruction, but had fluid-filled colonic and small bowel loops with scattered air-fluid levels suggestive of a diarrheal state or enteritis, a fat-containing umbilical hernia and enlarging fat-containing right inguinal hernia, mild bilateral hydronephrosis similar to previous and an indwelling Gutierrez catheter with market bladder wall thickening. Otherwise no diverticulitis or appendicitis. He will be admitted for sepsis with complicated Gutierrez-catheter associated UTI and urinary retention as well as acute kidney injury. Principal Diagnosis Pt states he is feeling well today. No issues with PICC line. He feels at his usual. Pt denies fever, SOB, chest pain, abd pain, n/v/c/d, LE pain or swelling. Discharge Exam Constitutional WD/WN, vitals as above Eyes normal visual patrick by confrontation and + anicteric sclerae Neck normal visual inspection and trachea midline Respiratory normal respiratory effort, lungs clear to auscultation Cardiovascular Rate/Rhythm: regular rate and regular rhythm Gastrointestinal (Abdomen) Inspection/Auscultation: abdomen not distended Percussion/Palpation: abdomen soft; abdomen nontender Musculoskeletal Head/Neck/Chest: normocephalic and head atraumatic Skin no rashes, warm and dry Neurologic awake; not confused Speech / Cognition: normal speech Psychiatric A+Ox3, euthymic affect Discharge Data Allergies Allergy/AdvReac Type Severity Reaction Status Date / Time WOOL Allergy Unknown UNKNOWN Uncoded 05/06/20 11:53 Consultations 05/06/20 13:24 ED Decision to Admit Stat 05/06/20 14:11 Consult Urology Routine 05/09/20 07:08 Consult Infectious Diseases Routine Ordered Studies 05/06/20 12:10 CT abd pelvis IV con only Stat Hospital Course (1) Sepsis: With fever, tachycardia, tachypnea, and UTI with staph and pseudomonas. Also with Septicemia with Pseudomonas and MSSA Much improved/resolved--> remains afebrile, leukocytosis resolved -Continue IV Zosyn for Pseudomonas and MSSA. Total of 14 days of therapy. Currently day 7 - ECHO without valvular vegetation -repeat BCxs drawn 05/10 remain negative. R PICC placed 05/12, no issues with initial use ID consult virtually 05/09-noted (2) Catheter-associated urinary tract infection: With abnormal UA, Gutierrez catheter was clogged with clot and with urinary retention of 650 mL's on admission-changed on admission With sepsis and UTI as above abx as above Gutierrez catheter was exchanged in the ER on 05/06 on finasteride and tamsulosin -Urology consultation-he was seen by urology as outpt and had cystoscopy in 08/2019, was supposed to return for urodynamics but did not due to COVID delay in getting an appointment -It is unclear why he has been having urinary retention for the last year or so- urology noted on cystoscopy that he did not have significantly enlarged prostate at that time reportedly was some issue with intermittent st cath while at the [facility] -Urology saw him here and recommended continued treatment of infection but no senior living recommendations--> will ensure gets outpt f/u with after discharge (3) Abdominal pain: Secondary to urinary retention and UTI -Now resolved with Gutierrez catheter replacement and retention resolved Tylenol as needed for pain (4) Urinary retention: Urology consultation-appreciated, f/u outpt Gutierrez catheter replaced in ER for 650mL of urine with small clot blocking outflow -Continue finasteride, restarted flomax this admission (5) NEEMA (acute kidney injury): resolved -Gutierrez catheter replaced in the ER (6) CKD (chronic kidney disease) stage 3, GFR 30-59 ml/min: As above, baseline creatinine appears to be around 1.5, now stable -Avoid nephrotoxins (7) Diabetes: Has a diagnosis of diabetes in his chart, but he is not aware of this He is not on medication for this as an outpatient hemoglobin A1c 5.9% here so has Prediabetes - will have on carbohydrate conservative diet (8) HTN (hypertension), benign: Blood pressures are controlled (9) Pulmonary nodules: Noted on previous chest imaging -Needs outpatient follow-up lung nodule clinic (10) Hyperlipidemia: Listed as a diagnosis, but not on medication for this Follow-up with PCP (11) Major depressive disorder: With PTSD also listed in the chart -Continue home duloxetine 90 mg daily (12) DVT prophylaxis: SCDs, no chemical anticoagulation given hematuria upon arrival but can start now given prolonged stay and no further hematuria Please note: pt asked if he would be getting a blood thinner as he was on this prior. He does not know the name of the medication. There is no recent record in our system about anticoagulation, nothing noted on admission for this hospitalization, but also not seen on med lists for prior ED visits or [facility] communication in the last year (oldest note reviewed was scanned info from [facility] 03/2019). Pt was maintained on lovenox, but noted as DVT proph use. Please review recent medication records at [facility] to be certain this was not an oversight on admission. Total Time Total Time Spent Total Time Spent (In Minutes): >30 Total Time Includes: Examination of the Patient, Discharge Planning, Medication Reconciliation, Communication With Other Providers and Other Discharge Plan Discharge Items [facility] Disposition[facility] Reason For Visit: UTI SEPSIS, URINARY RETENTION Discharge Diagnosis: sepsis, UTI, urinary retention Condition on Discharge: Good Activity: Resume your previous activity Non-emergency contact: Primary Care Provider and Urologist Call non-emergency contact if: you have any medication questions and your symptoms worsen Follow-up/Referrals: Devin Genao MD [Physician] - (2 weeks ) [facility] [Primary Care Provider] - Diet: Carb Consistent or DM2 Addtl Attending Provider Instructions: Continue zosyn via PICC for 7 days Please note: pt asked if he would be getting a blood thinner as he was on this prior. He does not know the name of the medication. There is no recent record in our system about anticoagulation, nothing noted on admission for this hospitalization, but also not seen on med lists for prior ED visits or [facility] communication in the last year (oldest note reviewed was scanned info from [facility] 03/2019). Pt was maintained on lovenox, but noted as DVT proph use. Please review recent medication records at [facility] to be certain this was not an oversight on admission. Pending Studies at Discharge: No Stand-Alone Forms: My [facility] Skilled Items Patient informed of condition?: Yes Discharge Level of Care: Other Communicable Disease: No Discharge Prognosis: Improving Lines: PICC Urinary Catheter: Yes Medications and DC Order Prescriptions: Continued duloxetine 30 mg Capsule,Delayed Release(Dr/Ec) 30 mg PO QAM RF: 0 duloxetine 60 mg Capsule,Delayed Release(Dr/Ec) 60 mg PO QAM RF: 0 finasteride 5 mg Tablet 5 mg PO DAILY RF: 0 lisinopril 10 mg Tablet 10 mg PO DAILY RF: 0 Discharge Orders: Discharge Order (Routine); Ordered 05/13/20 Ordered By: Leidy Wilson Admission Data Admit Date/Time: 05/06/20 14:11 Attending Provider: Leidy Wilson Admit Provider: Batsheva Najera [facility] Other Providers: Batsheva Najera ; Devin Genao Carlos M. ; Pat Garrido ; Mick Branham I. ; Flash Navarrete II ; Odalys Sloan ; Rom Vo Other Interventions: Discharge Summary Assessment (RN) Last Done: 05/13/20 12:54 Coding Level of Care Code D/C Day Management >30 mins Diagnoses Sepsis A41.9 Catheter-associated urinary tract infection T83.511A; N39.0 Encounter type: initial encounter Indwelling urinary catheter type: indwelling urethral catheter Abdominal pain R10.84 Abdominal location: generalized Urinary retention R33.9 NEEMA (acute kidney injury) N17.9 CKD (chronic kidney disease) stage 3, GFR 30-59 ml/min N18.3 Diabetes E11.9 HTN (hypertension), benign I10 Pulmonary nodules R91.8 Hyperlipidemia E78.5 Major depressive disorder F32.9 DVT prophylaxis Z29.9
[2020-05-13] MEDS ORDERED: CEFEPIME 2,000 MG in SYRINGE 7.5 ML IV SCH (16:00)
== END 2020-05-13 20:52 | DRG 698 ==
LOC: ED 11:10 → 2W 14:11 → SUATTDRO 14:11 → 2W 16:48 → 2N 05-07 13:48

== ENCOUNTER 2020-09-14 12:51 | Inpatient (IN) ==
[2020-09-14] MEDS ORDERED: SODIUM CHLORIDE 0.9% 1000ML 1,000 ML IV ONE ×3 (13:00→15:27)
[2020-09-14 13:22] LABS: Basophils # (auto) 0.02 K/uL (0-0.2); Basophils % (auto) 0.2 %; Eosinophils # (auto) 0.13 K/uL (0-0.5); Eosinophils % (auto) 1.1 %; Hemoglobin 13.5 g/dL (14.0-18.0); Immature Granulocytes # (auto) 0.04 K/uL (0.00-0.02); Immature Granulocytes % (auto) 0.3 %; Lymphocytes # (auto) 1.89 K/uL (1.2-3.4); Lymphocytes % (auto) 15.8 %; Mean Corpuscular Hemoglobin 30.8 pg (25-34); Mean Corpuscular Hgb Conc 32.9 g/dL (32-36); Mean Corpuscular Volume 93.6 fL (80-100); Mean Platelet Volume 9.4 fL (7.4-10.4); Monocytes # (auto) 0.94 K/uL (0.11-0.59); Monocytes % (auto) 7.9 %; Neutrophils # (auto) 8.91 K/uL (1.4-6.5); Neutrophils % (auto) 74.7 %; Nucleated RBC # (auto) 0.02 K/uL (0-0); Nucleated RBC % (auto) 0.1 %; Platelet Count 277 K/uL (130-400); RDW Coefficient of Variation 13.9 % (11.5-14.5); RDW Standard Deviation 47.8 fL (36.4-46.3); Red Blood Count 4.38 M/uL (4.7-6.1); White Blood Count 11.93 K/uL (4.8-10.8)
--- NOTE | 2020-09-14 13:22 | Emergency Department Note ---
Impression & Plan Pulmonary embolism, Pneumonia, Acute kidney injury, Acidosis, lactic, Acute hypotension, COVID-19 virus infection, Hypoxia, Respiratory failure ED Provider Note NAME: VANDANA [id number] MANOJ AGE: 65 SEX: M : 1955 ARRIVES VIA: Ambulance INFORMANT: Patient, prehospital personnel ED PROVIDER(S): Nicolas Stover DO CHIEF COMPLAINT: Shortness of breath HPI: The patient is an 65-year-old male [facility] an evaluation of shortness of breath. The patient was recently diagnosed with COVID-19. [facility] He presented to the emergency department by ambulance. He was placed on BiPAP prior to arrival because of severe shortness of breath and hypoxia. The patient complains of right-sided chest pain. He states he was recently seen in our facility for similar complaints. At that time he was tested for COVID-19 and was positive. He also wears an abdominal binder because of an abdominal hernia. He denies having any lower extremity pain. He complains of generalized weakness and shortness of breath. He complains of cough. His symptoms are very severe. His symptoms were improved with the addition of positive pressure ventilation as well as DuoNeb treatment. He was also treated with aspirin prior to arrival. ROS: See above HPI for pertinent positives & negatives. A total of 10 systems reviewed and were otherwise negative. PAST MEDICAL HISTORY: See Below PAST SURGICAL HISTORY: See Below FAMILY HISTORY: See Below SOCIAL HISTORY: See Below HOME MEDICATIONS: See Below ALLERGIES: See Below VITALS: See Below PHYSICAL EXAMINATION: GENERAL: The patient is awake and alert. He appears very anxious. EYES: The conjunctivae are clear. The pupils are round and reactive. EARS, NOSE, MOUTH AND THROAT: The nose is without any evidence of any deformity. NECK: The neck is nontender and supple. RESPIRATORY: Shallow respirations were noted. Breath sounds are absent in the left lung field. CARDIOVASCULAR: Tachycardic and regular heart sounds were noted to auscultation. There is no definite murmur. GASTROINTESTINAL: The abdomen is mildly distended but soft. There is no specific guarding rigidity noted. MUSCULOSKELETAL/EXTREMITIES: There is no evidence of gross deformity full range of motion is noted in the hips and shoulders. SKIN: There is no obvious evidence of any rash. Trace pedal edema was noted bilaterally. NEUROLOGIC: Patient is awake alert and oriented x3. MEDICAL DECISION MAKING: The patient is a 65-year-old male who [facility] for an evaluation of difficulty breathing. The patient was recently diagnosed with COVID-19 infection. He presented today with very severe respiratory distress. He was placed on BiPAP and given a DuoNeb prior to arrival. His oxygen saturation improved significantly. I discussed the patient's laboratory and radiographic studies with him. He was treated with IV fluids IV Decadron and IV antibiotics in the emergency department. His condition did improve somewhat but he continued to require supplemental oxygen. The patient was found to have an elevation in his creatinine compared to baseline. I discussed the patient's condition with the on-call [facility]. They have agreed to evaluate the patient in the emergency department for further management and disposition. Triage Nursing notes reviewed. Prior medical records reviewed Vital Signs: reviewed and remarkable for hypotension, tachycardia, tachypnea and hypoxia. Differential diagnosis: Reactive airway disease, pneumonia, pneumothorax, COPD, CHF, infections, cardiac ischemia, pulmonary embolism, musculoskeletal, gastrointestinal, as well as other pathologies. ER treatment provided: See below Diagnostics interpreted by me: ECG: EKG was obtained in the emergency department. My interpretation is sinus tachycardia at 141 bpm. There was no ectopy. Diffuse ST abnormalities were noted. This was compared to a tracing from September 032019. There is an increase in the rate however no other specific changes were noted. Cardiac Monitoring: An order was placed for continuous cardiac monitoring. The monitor shows a rate of 150 bpm with sinus tachycardia rhythm. Laboratory studies: As stated above and show below. Imaging studies: See below Consultation(s): 1435: I discussed this case with Dr. Bentley who is on-call for the [facility] group. ED COURSE: Procedures: none PDMP:reviewed and no issues Critical Care: I have personally spent greater than 55 minutes of critical care time in the direct management of this patient. This includes bedside care, interpretation of diagnostic studies, and testing, discussion with consultants, patient, and family members, and other required patient management activities. This 55 minutes is in excess of all separately billable procedures. Past Med/Surg History Medical History CKD (chronic kidney disease) stage 3, GFR 30-59 ml/min Diabetes HTN (hypertension), benign Hyperlipidemia Inguinal hernia Major depressive disorder Pulmonary nodules Umbilical hernia Urinary retention Surgical History No pertinent past surgical history Family History Sister Diabetes Hypertension Brother Hypertension Father Nephrolithiasis Lung disease Other No pertinent family history in first degree relatives Social History Smoking Status: Former smoker Tobacco Type: Cigarettes packs per day: 1; Years Smoked: 25; Number of Years Since Quit: 5; Second Hand Exposure: No; Hx Alcohol Use: Yes Alcohol type: hard liquor Alcohol Intake Frequency: 4 or More x per/Week Alcohol Intake Frequency Comment: Previous, but no longer drinking since he is incarcerated Hx Substance Use: Yes Non-Prescribed Medications: Heroin Non-Prescribed Medications Comment: 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 Preferred Language: Macedonian Communication Ability: Effective Range Mounter Required: No Beliefs That Will Affect Care: None marital status: Single Current Living Situation Comment: Lives at [facility] Feels Safe at Home: Yes Assistive Devices: None Allergies Allergies Allergy/AdvReac Type Severity Reaction Status Date / Time WOOL Allergy Unknown Unknown Uncoded 09/14/20 14:10 Home Meds Home Medications Medication Instructions Recorded Confirmed duloxetine 30 mg PO QAM 12/17/18 09/14/20 duloxetine 60 mg PO QAM 12/17/18 09/14/20 finasteride 5 mg PO DAILY 11/11/19 09/14/20 lisinopril 10 mg PO DAILY 05/06/20 09/14/20 Previous Rx's Medication Instructions Recorded ciprofloxacin HCl 500 mg PO BID #14 tab 09/03/20 Results & Data (ED) Vital Signs Vital Signs - 24 hr 09/14/20 12:57 09/14/20 13:00 09/14/20 13:10 Temperature Temperature Source Pulse Rate 146 H 148 H 132 H Pulse Rate from SpO2 Sensor 146 H 150 H 132 H Respiratory Rate 34 H 35 H 28 H Respiratory Effort / Characteristics Spontaneous Accessory Muscle Use Respiratory Depth Respiratory Pattern Blood Pressure 105/66 Blood Pressure Mean 72 Blood Pressure Position Pulse Oximetry 97 98 96 Oxygen Delivery Method BiPAP BiPAP BiPAP Fraction of Inspired Oxygen Sepsis Recent Fever Within 48 Hours Sepsis New/Unexplained Change in Mental Status Sepsis Action Taken by Nursing 09/14/20 13:13 09/14/20 13:20 09/14/20 13:24 Temperature 36.7 C Temperature Source Oral Pulse Rate 148 H 141 H 138 H Pulse Rate from SpO2 Sensor 141 H 138 H Respiratory Rate 35 H 25 H 30 H Respiratory Effort / Characteristics Spontaneous Accessory Muscle Use Respiratory Depth Shallow Respiratory Pattern Blood Pressure 105/66 80/58 L Blood Pressure Mean 79 67 Blood Pressure Position Lying Pulse Oximetry 98 95 98 Oxygen Delivery Method CPAP BiPAP Fraction of Inspired Oxygen Sepsis Recent Fever Within 48 Hours No Sepsis New/Unexplained Change in Mental Status N/A Sepsis Action Taken by Nursing Physician Notified 09/14/20 13:25 09/14/20 13:28 09/14/20 13:29 Temperature Temperature Source Pulse Rate 132 H 128 H Pulse Rate from SpO2 Sensor 133 H Respiratory Rate 27 H 22 Respiratory Effort / Characteristics Non-Labored Spontaneous Respiratory Depth Normal Respiratory Pattern Regular Blood Pressure 95/75 L Blood Pressure Mean 81 Blood Pressure Position Pulse Oximetry 98 96 96 Oxygen Delivery Method CPAP Fraction of Inspired Oxygen 50 Sepsis Recent Fever Within 48 Hours Sepsis New/Unexplained Change in Mental Status Sepsis Action Taken by Nursing 09/14/20 13:30 09/14/20 13:31 09/14/20 13:33 Temperature Temperature Source Pulse Rate 132 H 132 H 133 H Pulse Rate from SpO2 Sensor 140 H 133 H 133 H Respiratory Rate 24 28 H 27 H Respiratory Effort / Characteristics Respiratory Depth Respiratory Pattern Blood Pressure 86/56 L 117/71 Blood Pressure Mean 75 75 Blood Pressure Position Pulse Oximetry 95 96 98 Oxygen Delivery Method Fraction of Inspired Oxygen Sepsis Recent Fever Within 48 Hours Sepsis New/Unexplained Change in Mental Status Sepsis Action Taken by Nursing 09/14/20 13:40 09/14/20 13:46 09/14/20 13:50 Temperature Temperature Source Pulse Rate 125 H 133 H Pulse Rate from SpO2 Sensor 125 H 133 H 134 H Respiratory Rate 28 H 27 H Respiratory Effort / Characteristics Respiratory Depth Respiratory Pattern Blood Pressure Blood Pressure Mean Blood Pressure Position Pulse Oximetry 96 95 100 Oxygen Delivery Method BiPAP BiPAP BiPAP Fraction of Inspired Oxygen Sepsis Recent Fever Within 48 Hours Sepsis New/Unexplained Change in Mental Status Sepsis Action Taken by Nursing 09/14/20 13:51 09/14/20 13:59 09/14/20 14:00 Temperature Temperature Source Pulse Rate 124 H 128 H Pulse Rate from SpO2 Sensor 131 H 124 H 132 H Respiratory Rate 25 H 28 H 27 H Respiratory Effort / Characteristics Accessory Muscle Use Respiratory Depth Respiratory Pattern Blood Pressure 84/62 L 85/66 L Blood Pressure Mean 71 70 84 Blood Pressure Position Pulse Oximetry 100 98 97 Oxygen Delivery Method BiPAP BiPAP BiPAP Fraction of Inspired Oxygen Sepsis Recent Fever Within 48 Hours Sepsis New/Unexplained Change in Mental Status Sepsis Action Taken by Nursing 09/14/20 14:02 09/14/20 14:08 09/14/20 14:10 Temperature Temperature Source Pulse Rate 126 H 122 H 125 H Pulse Rate from SpO2 Sensor 127 H 123 H 125 H Respiratory Rate 26 H 29 H 29 H Respiratory Effort / Characteristics Respiratory Depth Respiratory Pattern Blood Pressure 92/64 L 109/68 Blood Pressure Mean 81 82 Blood Pressure Position Pulse Oximetry 99 98 98 Oxygen Delivery Method BiPAP BiPAP BiPAP Fraction of Inspired Oxygen Sepsis Recent Fever Within 48 Hours Sepsis New/Unexplained Change in Mental Status Sepsis Action Taken by Nursing 09/14/20 14:13 09/14/20 14:15 09/14/20 14:20 Temperature Temperature Source Pulse Rate 122 H 120 H Pulse Rate from SpO2 Sensor 126 H 120 H Respiratory Rate 29 H 25 H Respiratory Effort / Characteristics Accessory Muscle Use Respiratory Depth Shallow Respiratory Pattern Blood Pressure 90/68 L Blood Pressure Mean 73 Blood Pressure Position Pulse Oximetry 98 95 98 Oxygen Delivery Method CPAP BiPAP BiPAP Fraction of Inspired Oxygen Sepsis Recent Fever Within 48 Hours Sepsis New/Unexplained Change in Mental Status Sepsis Action Taken by Nursing 09/14/20 14:45 09/14/20 14:46 09/14/20 15:00 Temperature Temperature Source Pulse Rate 113 H 108 H 121 H Pulse Rate from SpO2 Sensor 113 H 109 H 121 H Respiratory Rate 21 22 28 H Respiratory Effort / Characteristics SOB on Exertion Respiratory Depth Respiratory Pattern Blood Pressure 91/68 L 94/72 L Blood Pressure Mean 78 82 Blood Pressure Position Pulse Oximetry 98 98 100 Oxygen Delivery Method BiPAP Fraction of Inspired Oxygen Sepsis Recent Fever Within 48 Hours Sepsis New/Unexplained Change in Mental Status Sepsis Action Taken by Nursing 09/14/20 15:30 09/14/20 16:00 Temperature Temperature Source Pulse Rate Pulse Rate from SpO2 Sensor Respiratory Rate 32 H 31 H Respiratory Effort / Characteristics Accessory Muscle Use Accessory Muscle Use Respiratory Depth Respiratory Pattern Blood Pressure Blood Pressure Mean Blood Pressure Position Pulse Oximetry Oxygen Delivery Method BiPAP Fraction of Inspired Oxygen Sepsis Recent Fever Within 48 Hours Sepsis New/Unexplained Change in Mental Status Sepsis Action Taken by Jail Medications Current Medication List: was personally reviewed by me Laboratory Data Attestation: I reviewed the patient's lab results. Result diagrams: 09/14/20 13:07 09/14/20 13:07 Lab Results 09/14/20 09/14/20 09/14/20 Range/Units 13:07 13:07 13:07 WBC 11.93 H (4.8-10.8) K/uL RBC 4.38 L (4.7-6.1) M/uL Hgb 13.5 L (14.0-18.0) g/dL Hct 41.0 L (42-52) % MCV 93.6 (80-100) fL MCH 30.8 (25-34) pg MCHC 32.9 (32-36) g/dL RDW Std Deviation 47.8 H (36.4-46.3) fL RDW Coeff of Osmin 13.9 (11.5-14.5) % Plt Count 277 (130-400) K/uL MPV 9.4 (7.4-10.4) fL Immature Gran % (Auto) 0.3 % Neut % (Auto) 74.7 % Lymph % (Auto) 15.8 % Boyd % (Auto) 7.9 % Eos % (Auto) 1.1 % Baso % (Auto) 0.2 % Neut # (Auto) 8.91 H (1.4-6.5) K/uL Lymph # (Auto) 1.89 (1.2-3.4) K/uL Boyd # (Auto) 0.94 H (0.11-0.59) K/uL Eos # (Auto) 0.13 (0-0.5) K/uL Baso # (Auto) 0.02 (0-0.2) K/uL Immature Gran # (Auto) 0.04 H (0.00-0.02) K/uL Absolute Nucleated RBC 0.02 H (0-0) K/uL Nucleated RBC % (auto) 0.1 % PT 11.5 (9.0-12.0) Seconds INR 1.1 (0.9-1.1) APTT 25.5 (21.0-31.0) Seconds PTT Ratio 0.9 D-Dimer > 18186 H* (0-500) ug/L FEU Sodium 136 (136-145) mmol/L Potassium 4.2 (3.5-5.1) mmol/L Chloride 102 (98-107) mmol/L Carbon Dioxide 20 L (21-32) mmol/L Anion Gap 14.0 H (3-11) BUN 28 H (7-18) mg/dl Creatinine 2.60 H (0.6-1.4) mg/dl Est Cr Clr Drug Dosing 32.8 ml/min Est GFR ( Amer) 29.1 Est GFR (Non-Af Amer) 25.1 BUN/Creatinine Ratio 10.9 (10-20) Glucose 181 H (70-99) mg/dl Lactate (0.4-2.0) mmol/L Calcium 9.7 (8.5-10.1) mg/dl Magnesium 2.5 H (1.8-2.4) mg/dl Total Bilirubin 0.7 (0.2-1) mg/dl AST 22 (15-37) U/L ALT 30 (12-78) U/L Alkaline Phosphatase 69 (45-117) U/L Troponin I 0.792 H* (0-0.045) ng/ml Total Protein 8.9 H (6.4-8.2) gm/dl Albumin 3.2 L (3.4-5.0) gm/dl Globulin 5.7 H (2.5-4.0) gm/dl Albumin/Globulin Ratio 0.6 L (0.9-2) Procalcitonin (0-0.5) ng/ml Blood Type Antibody Screen 09/14/20 09/14/20 09/14/20 Range/Units 13:07 13:07 13:35 WBC (4.8-10.8) K/uL RBC (4.7-6.1) M/uL Hgb (14.0-18.0) g/dL Hct (42-52) % MCV (80-100) fL MCH (25-34) pg MCHC (32-36) g/dL RDW Std Deviation (36.4-46.3) fL RDW Coeff of Osmin (11.5-14.5) % Plt Count (130-400) K/uL MPV (7.4-10.4) fL Immature Gran % (Auto) % Neut % (Auto) % Lymph % (Auto) % Boyd % (Auto) % Eos % (Auto) % Baso % (Auto) % Neut # (Auto) (1.4-6.5) K/uL Lymph # (Auto) (1.2-3.4) K/uL Boyd # (Auto) (0.11-0.59) K/uL Eos # (Auto) (0-0.5) K/uL Baso # (Auto) (0-0.2) K/uL Immature Gran # (Auto) (0.00-0.02) K/uL Absolute Nucleated RBC (0-0) K/uL Nucleated RBC % (auto) % PT (9.0-12.0) Seconds INR (0.9-1.1) APTT (21.0-31.0) Seconds PTT Ratio D-Dimer (0-500) ug/L FEU Sodium (136-145) mmol/L Potassium (3.5-5.1) mmol/L Chloride (98-107) mmol/L Carbon Dioxide (21-32) mmol/L Anion Gap (3-11) BUN (7-18) mg/dl Creatinine (0.6-1.4) mg/dl Est Cr Clr Drug Dosing ml/min Est GFR ( Amer) Est GFR (Non-Af Amer) BUN/Creatinine Ratio (10-20) Glucose (70-99) mg/dl Lactate 6.3 H* (0.4-2.0) mmol/L Calcium (8.5-10.1) mg/dl Magnesium (1.8-2.4) mg/dl Total Bilirubin (0.2-1) mg/dl AST (15-37) U/L ALT (12-78) U/L Alkaline Phosphatase (45-117) U/L Troponin I (0-0.045) ng/ml Total Protein (6.4-8.2) gm/dl Albumin (3.4-5.0) gm/dl Globulin (2.5-4.0) gm/dl Albumin/Globulin Ratio (0.9-2) Procalcitonin 0.18 (0-0.5) ng/ml Blood Type A Positive Antibody Screen NEGATIVE 09/14/20 Range/Units 15:31 WBC (4.8-10.8) K/uL RBC (4.7-6.1) M/uL Hgb (14.0-18.0) g/dL Hct (42-52) % MCV (80-100) fL MCH (25-34) pg MCHC (32-36) g/dL RDW Std Deviation (36.4-46.3) fL RDW Coeff of Osmin (11.5-14.5) % Plt Count (130-400) K/uL MPV (7.4-10.4) fL Immature Gran % (Auto) % Neut % (Auto) % Lymph % (Auto) % Boyd % (Auto) % Eos % (Auto) % Baso % (Auto) % Neut # (Auto) (1.4-6.5) K/uL Lymph # (Auto) (1.2-3.4) K/uL Boyd # (Auto) (0.11-0.59) K/uL Eos # (Auto) (0-0.5) K/uL Baso # (Auto) (0-0.2) K/uL Immature Gran # (Auto) (0.00-0.02) K/uL Absolute Nucleated RBC (0-0) K/uL Nucleated RBC % (auto) % PT (9.0-12.0) Seconds INR (0.9-1.1) APTT (21.0-31.0) Seconds PTT Ratio D-Dimer (0-500) ug/L FEU Sodium (136-145) mmol/L Potassium (3.5-5.1) mmol/L Chloride (98-107) mmol/L Carbon Dioxide (21-32) mmol/L Anion Gap (3-11) BUN (7-18) mg/dl Creatinine (0.6-1.4) mg/dl Est Cr Clr Drug Dosing ml/min Est GFR ( Amer) Est GFR (Non-Af Amer) BUN/Creatinine Ratio (10-20) Glucose (70-99) mg/dl Lactate 3.4 H* (0.4-2.0) mmol/L Calcium (8.5-10.1) mg/dl Magnesium (1.8-2.4) mg/dl Total Bilirubin (0.2-1) mg/dl AST (15-37) U/L ALT (12-78) U/L Alkaline Phosphatase (45-117) U/L Troponin I (0-0.045) ng/ml Total Protein (6.4-8.2) gm/dl Albumin (3.4-5.0) gm/dl Globulin (2.5-4.0) gm/dl Albumin/Globulin Ratio (0.9-2) Procalcitonin (0-0.5) ng/ml Blood Type Antibody Screen Administered Medications Vancomycin HCl 1,750 mg/ (Sodium Chloride) 535 mls @ 200 mls/hr IV NOW ONE Stop: 09/14/20 18:25 Last Admin: 09/14/20 16:22 Dose: 200 mls/hr Documented by: [id number] Discontinued Medications Dexamethasone (Dexamethasone Sod Inj 10 Mg/Ml Vial) 10 mg IV NOW ONE Stop: 09/14/20 13:39 Last Admin: 09/14/20 13:53 Dose: 10 mg Documented by: [id number] Sodium Chloride (Nss 1000ml) 1,000 mls @ 999 mls/hr IV .Q1H1M ONE Stop: 09/14/20 14:00 Last Infusion: 09/14/20 13:53 Dose: 999 mls/hr Documented by: [id number] Admin: 09/14/20 13:27 Dose: 999 mls/hr Documented by: [id number] Ceftriaxone Sodium (Rocephin) 1,000 mg in 50 mls @ 100 mls/hr IV NOW STA Stop: 09/14/20 14:07 Last Infusion: 09/14/20 14:36 Dose: 0 mls/hr Documented by: [id number] Admin: 09/14/20 13:54 Dose: 100 mls/hr Documented by: [id number] Sodium Chloride (Nss 1000ml) 1,000 mls @ 999 mls/hr IV .Q1H1M ONE Stop: 09/14/20 14:39 Last Admin: 09/14/20 13:54 Dose: 999 mls/hr Documented by: [id number] Cefepime HCl 2,000 mg/ Syringe 20 mls @ 5 mls/min IV NOW STA; Protocol Stop: 09/14/20 15:29 Last Admin: 09/14/20 15:52 Dose: 5 mls/min Documented by: [id number] Sodium Chloride (Nss 1000ml) 1,000 mls @ 999 mls/hr IV .Q1H1M ONE Stop: 09/14/20 16:27 Last Admin: 09/14/20 16:22 Dose: 999 mls/hr Documented by: [id number] Imaging Data Radiologist's Impression: Patient: VANDANA ARANDA [id number] Admit Date: 09/14/20 MR#: [id number] Address1: [address] Acct ID:[id number] Address2: [facility] Date: 1955 [facility] Zip: [place] [address] Age: 65 Location: ED Sex: M Room/Bed: Att Phy: Diagnosis: respiratory distress Petra Phy: [facility] Service Date: 09/14/20 [facility] Phy: Interpreting Phy: Lalito Hercules MD Admit Phy: Ordering Phy: Nicolas Stover DO cc: ~ KUB CLINICAL HISTORY: Abdominal pain. COMPARISON STUDY: CT of the abdomen and pelvis September 03, 2020. FINDINGS: By report, metallic densities projecting over the lower abdomen are on the patient. The inferior aspect of the pelvis was not included on this exam. The visualized bowel gas pattern is normal. No renal calculi are identified. IMPRESSION: No evidence for a bowel obstruction. ACT 112: Negative or not required by law. Electronically signed by: Lalito Hercules M.D. 09/14/2020 2:12 PM Dictated: 09/14/20 1400 Transcribed: 09/14/20 1401 Patient: VANDANA ARANDA [id number] Admit Date: 09/14/20 MR#: [id number] Address1: [address] Acct ID:[id number] Address2: [facility] Date: 1955 [facility] Zip: [place] [address] Age: 65 Location: ED Sex: M Room/Bed: Att Phy: Diagnosis: respiratory distress Petra Phy: [facility] Service Date: 09/14/20 Fam Phy: Interpreting Phy: Junito Alarcon MD Admit Phy: Ordering Phy: Nicolas Stover DO cc: ~ XR chest 1V portable CLINICAL HISTORY: SEPSIS COMPARISON STUDY: 08/26/2020 FINDINGS: The heart is the upper limits of normal in size. Since the prior study, the patient has developed subtle bilateral pulmonary airspace opacities consistent with a multifocal pneumonia. Correlation with Covid 19 testing is recommended. There are no pleural effusions. There is no failure.[ IMPRESSION: 1. Bilateral pulmonary airspace opacities, consistent with a multifocal pneumonia. ACT 112: Negative or not required by law. Electronically signed by: Junito Alarcon M.D. 09/14/2020 1:55 PM Dictated: 09/14/20 1355 Transcribed: 09/14/20 1355 Patient: VANDANA ARANDA [id number] Admit Date: 09/14/20 MR#: [id number] Address1: [address] Acct ID:[id number] Address2: [facility] Date: 1955 [facility] Zip: [place] [address] Age: 65 Location: [facility] Sex: M Room/Bed: [facility] 1-10 Att Phy: Deric Bentley MD Diagnosis: Sepsis, COVID-19, acute hypoxic respiratory failur Petra Phy: [facility] Service Date: 09/14/20 Fam Phy: Interpreting Phy: Lalito Hercules MD Admit Phy: Deric Bentley MD Ordering Phy: Deric Bentley MD cc: ~ CT ANGIOGRAPHY OF THE CHEST, PULMONARY EMBOLUS PROTOCOL CLINICAL HISTORY: Shortness of breath. Chest pain. Covid. COMPARISON STUDY: Chest radiograph September 03, 2020 and September 14, 2020. TECHNIQUE: Following IV administration of 100 mL of Optiray-320, helical axial images of the chest were obtained utilizing the pulmonary embolus protocol. Maximal intensity projections and sagittal and coronal reformats were viewed on an independent 3D workstation. IV contrast was administered without complication. Automated exposure control was utilized for the study. A dose lowering technique was utilized adhering to the principles of ALARA. CT DOSE: 543.95 mGycm FINDINGS: Extensive bilateral pulmonary emboli are noted, including a saddle embolus. Near occlusive pulmonary emboli are noted within the lobar pulmonary arteries with emboli within the distal right and left pulmonary arteries. The heart is mildly enlarged. Note is made of leftward bowing of the interventricular septum. There is dilatation of the right heart chambers. There is no pericardial effusion. No thoracic aortic dissection is noted. Trace left pleural effusion is noted. There is no pneumothorax. Lungs are suboptimally assessed given respiratory motion. Multifocal consolidation and groundglass opacities are noted within the lungs. Central airways are patent. Upper abdomen is unremarkable. IMPRESSION: 1. Extensive bilateral pulmonary emboli, including a saddle embolus. CT findings consistent with right heart strain with leftward bowing of the interventricular septum and dilatation of the right heart chambers. These findings were discussed with Dr. Bentley at time of dictation. 2. Multifocal consolidation ground glass opacities within the lungs suggestive of viral pneumonia. 3. Trace left pleural effusion. ACT 112: Negative or not required by law. Electronically signed by: Lalito Hercules M.D. 09/14/2020 4:27 PM Dictated: 09/14/20 1615 Transcribed: 09/14/20 1623 Blood Pressure Blood Pressure Findings: Low blood pressure Discharge Plan Visit Data Chief Complaint: Respiratory Distress Stated Complaint: respiratory distress ED Provider: Nicolas Stover Discharge Problem: Pulmonary embolism, Pneumonia, Acute kidney injury, Acidosis, lactic, Acute hypotension, COVID-19 virus infection, Hypoxia, Respiratory failure Patient Disposition: Being Evaluated by Hospitalist Condition: Good Discharge Problem: Pulmonary embolism Qualifiers: Pulmonary embolism type: saddle Chronicity: acute Acute cor pulmonale presence: with acute cor pulmonale Qualified Code(s): I26.02 - Saddle embolus of pulmonary artery with acute cor pulmonale Pneumonia Qualifiers: Pneumonia type: due to unspecified organism Laterality: unspecified laterality Lung location: unspecified part of lung Qualified Code(s): J18.9 - Pneumonia, unspecified organism Respiratory failure Qualifiers: Chronicity: acute Respiratory failure complication: hypoxia Qualified Code(s): J96.01 - Acute respiratory failure with hypoxia
[2020-09-14 13:32] LABS: Base Excess VBG -5.2 mEq/L; Oxygen Saturation VBG 75.3 %; pH VBG 7.36 (7.36-7.41)
[2020-09-14] MEDS ORDERED: DEXAMETHASONE SOD INJ 10 MG/ML VIAL IV ONE (13:38)
[2020-09-14] MEDS ORDERED: cefTRIAXone SODIUM 1,000 MG/50 ML BAG IV STA (13:38)
[2020-09-14 13:42] LABS: Albumin Level 3.2 gm/dl (3.4-5.0); BUN Creatinine Ratio 10.9 (10-20); Calcium 9.7 mg/dl (8.5-10.1); Creatinine Clr Calc Pharmacy 32.8 ml/min; Est GFR (African American) 29.1; Est GFR (Non-African American) 25.1; Magnesium 2.5 mg/dl (1.8-2.4); Potassium 4.2 mmol/L (3.5-5.1)
[2020-09-14 13:54] LABS: Albumin Globulin Ratio 0.6 (0.9-2); Bilirubin,Total 0.7 mg/dl (0.2-1); Globulin 5.7 gm/dl (2.5-4.0); Total Protein 8.9 gm/dl (6.4-8.2); Troponin I 0.792 ng/ml (0-0.045)
--- NOTE | 2020-09-14 13:57 | XRay Report ---
XR chest 1V portable CLINICAL HISTORY: SEPSIS COMPARISON STUDY: 08/26/2020 FINDINGS: The heart is the upper limits of normal in size. Since the prior study, the patient has dev eloped subtle bilateral pulmonary airspace opacities consistent with a multifocal pneumonia. Correlat ion with Covid 19 testing is recommended. There are no pleural effusions. There is no failure.[ IMPRESSION: 1. Bilateral pulmonary airspace opacities, consistent with a multifocal pneumonia. ACT 112: Negative or not required by law. Electronically signed by: Junito Alarcon M.D. 09/14/2020 1:55 PM
--- NOTE | 2020-09-14 14:13 | XRay Report ---
KUB CLINICAL HISTORY: Abdominal pain. COMPARISON STUDY: CT of the abdomen and pelvis September 03, 2020. FINDINGS: By report, metallic densities projecting over the lower abdomen are on the patient. The inf erior aspect of the pelvis was not included on this exam. The visualized bowel gas pattern is normal. No renal calculi are identified. IMPRESSION: No evidence for a bowel obstruction. ACT 112: Negative or not required by law. Electronically signed by: Lalito Hercules M.D. 09/14/2020 2:12 PM
[2020-09-14 14:18] LABS: INR 1.1 (0.9-1.1); Partial Thromboplastin Ratio 0.9; Partial Thromboplastin Time 25.5 Seconds (21.0-31.0); Prothrombin Time 11.5 Seconds (9.0-12.0)
--- NOTE | 2020-09-14 14:26 | Electrocardiogram Report ---
Test Reason : Blood Pressure : / mmHG Vent. Rate : 141 BPM Atrial Rate : 141 BPM P-R Int : 126 ms QRS Dur : 094 ms QT Int : 290 ms P-R-T Axes : 042 028 038 degrees QTc Int : 444 ms Poor data quality, interpretation may be adversely affected Sinus tachycardia RSR' or QR pattern in V1 suggests right ventricular conduction delay Cannot rule out Inferior infarct (cited on or before 14-SEP-2020) Abnormal ECG When compared with ECG of 03-SEP-2020 16:12, Vent. rate has increased BY 64 BPM QRS duration has increased ST no longer depressed in Inferior leads Non-specific change in ST segment in Lateral leads Nonspecific T wave abnormality no longer evident in Lateral leads Confirmed by Nicolas Costa ([id number]) on 09/14/2020 2:26:18 PM Referred By: [facility] Confirmed By:Nicolas Costa
[2020-09-14 14:33] LABS: D Dimer > 35200 ug/L FEU (0-500)
--- NOTE | 2020-09-14 14:47 | History & Physical Report ---
Date of Service September 14, 2020 Assessment & Plan (1) Sepsis: Source COVID +/- bacterial PNA +/- left pyelonephritis Lactate 6.3, repeat pending Fluid resuscitation wtih 2L NSS given in ER, given continued relative hypotension and tachycardia will give additional [address] for PE due to tachycardia, hypoxia, hypotension with very elevated D-dimer in the setting of COVID-19 and left-sided pleuritic chest pain - benefits of diagnosis outweighs risk of IV contrast with NEEMA. Broaden antibiotics given previous Pseudomonas and staph aureus bacteremia. Although reassuringly most recent urine pathogen Klebsiella pneumoniae resistant only to nitrofurantoin and Bactrim. Start Vancomycin and cefepime pending blood/repeat urine cultures (2) COVID-19: Dexamethasone 6 mg IV every morning Unclear onset of symptoms and diagnosis since Sep 03 therefore deferred remdesivir and convalescent plasma as symptoms more likely secondary to PE/bacterial sepsis. (3) Catheter-associated urinary tract infection: Sensitive to ceftriaxone given in ER. Will broaden antibiotics to cover prior bacteremia with MSSA/pseudomonas as above. (4) Acute respiratory failure with hypoxia: Transfer from BiPAP to high flow oxygen as able. Aim O2 sats > 94% (5) Acute kidney injury: Hold lisinopril IV fluids as above. (6) PTSD (post-traumatic stress disorder): Continue duloxetine 90 mg p.o. every morning (7) DVT prophylaxis: Pending CT for PE Admission and Anticipated Discharge Date Admission Date: 09/14/2020 History of Present Illness Primary Care Provider: [facility] Erich Hemphill is a 65 year old male from [facility] with known recent COVID-19 diagnosis (diagnosed 09/03) who presents to the ER after a fall and being found hypotensive, tachycardia and hypoxic. Main acute symptom he reports left flank pain, ongoing for 2-3 days, worse on inspiration and palpation (however similar pain was noted during ER visit on Sep 03). Otherwise he reports his symptoms have been going on for the last month including non-productive cough, fever, chills, myalgias. He was seen in the ER on September 03 for left flank pain. At that time he was diagnosed with a catheter associated UTI treated with ciprofloxacin. He has a chronic indwelling fontana catheter, last changed on (6 days ago). In the ER he underwent chest x-ray concerning for multifocal pneumonia with known COVID-19. He was treated with ceftriaxone to cover his catheter associated UTI and dexamethasone to treat COVID-19. He was started on BiPAP for acute hypoxic respiratory failure however no CO2 retention on VBG. He was referred to medicine for ongoing admission and management of COVID-19 pneumonia with acute hypoxic respiratory failure. Allergies Allergy/AdvReac Type Severity Reaction Status Date / Time WOOL Allergy Unknown Unknown Uncoded 09/14/20 14:10 Home Medications Medication Instructions Recorded Confirmed Type duloxetine 30 mg PO QAM 12/17/18 09/14/20 History duloxetine 60 mg PO QAM 12/17/18 09/14/20 History finasteride 5 mg PO DAILY 11/11/19 09/14/20 History lisinopril 10 mg PO DAILY 05/06/20 09/14/20 History ciprofloxacin HCl 500 mg PO BID #14 tab 09/03/20 09/14/20 Rx Past Med/Surg History Medical History (Updated 09/15/20 @ 11:40 by Deric Bentley MD) CKD (chronic kidney disease) stage 3, GFR 30-59 ml/min Diabetes HTN (hypertension), benign Hyperlipidemia Inguinal hernia Major depressive disorder PTSD (post-traumatic stress disorder) Pulmonary nodules Umbilical hernia Urinary retention Surgical History No pertinent past surgical history Family History Sister Diabetes Hypertension Brother Hypertension Father Nephrolithiasis Lung disease Other No pertinent family history in first degree relatives Social History Smoking Status: Former smoker Tobacco Type: Cigarettes packs per day: 1; Years Smoked: 25; Number of Years Since Quit: 5; Second Hand Exposure: No; Hx Alcohol Use: No Hx Substance Use: No Preferred Language: Malian Communication Ability: Effective Crusher Tender Required: No Beliefs That Will Affect Care: None marital status: Single Current Living Situation: Other Current Living Situation Comment: in[place] Feels Safe at Home: Yes Assistive Devices: None Review of Systems Review of Systems: All systems reviewed & are unremarkable except as noted in HPI & below Physical Exam Constitutional: well developed, + acute distress (Respiratory) and + obese; + not well nourished Eyes: PERRL, conjunctivae normal, anicteric sclerae Respiratory: + respiratory distress, + retractions and + uses accessory muscles; no cough, + not able to speak in complete sentence and expiratory phase not prolonged Auscultation: + rhonchi (Bilateral); breath sounds present, no diminished lung sounds and no wheezes Cardiovascular: Rate/Rhythm: regular rhythm and + tachycardic Heart Sounds: no murmur Vessels: no JVD Extremities: normal capillary refill and + pedal edema (1+ to mid shins bilaterally); no calf tenderness Gastrointestinal (Abdomen): normal bowel sounds, soft, nontender, no hepat osplenomegaly Musculoskeletal: no cyanosis or clubbing, extremities motor strength 5/5 Skin: no rashes, warm and dry (No areas of cellulitis) Neurologic: moves all extremities and awake; no focal motor deficits (No lateralizing weakness) and not confused Motor/Sensory: no tremor Psychiatric: A+Ox3, euthymic affect Genitourinary: + CVA tenderness (Left) Results & Data Results & Data ([facility]) Vital Signs (Past 12 Hours) Vital Signs Temp Pulse Resp BP Pulse Ox 09/14/20 14:20 120 H 25 H 98 09/14/20 14:15 122 H 29 H 90/68 L 95 09/14/20 14:13 98 09/14/20 14:10 125 H 29 H 98 09/14/20 14:08 122 H 29 H 109/68 98 09/14/20 14:02 126 H 26 H 92/64 L 99 09/14/20 14:00 128 H 27 H 97 09/14/20 13:59 124 H 28 H 85/66 L 98 09/14/20 13:51 25 H 84/62 L 100 09/14/20 13:50 100 09/14/20 13:46 133 H 27 H 95 09/14/20 13:40 125 H 28 H 96 09/14/20 13:33 133 H 27 H 117/71 98 09/14/20 13:31 132 H 28 H 86/56 L 96 09/14/20 13:30 132 H 24 95 09/14/20 13:29 128 H 22 96 09/14/20 13:28 132 H 27 H 95/75 L 96 09/14/20 13:25 98 09/14/20 13:24 138 H 30 H 80/58 L 98 09/14/20 13:20 141 H 25 H 95 09/14/20 13:13 36.7 C 148 H 35 H 105/66 98 09/14/20 13:10 132 H 28 H 96 09/14/20 13:00 148 H 35 H 98 09/14/20 12:57 146 H 34 H 105/66 97 Diagnostic Findings XR chest 1V portable IMPRESSION: 1. Bilateral pulmonary airspace opacities, consistent with a multifocal pneumonia. KUB IMPRESSION: No evidence for a bowel obstruction. Medications Administered ER medications given: NSS 2L bolus Ceftriaxone 1 g IV Dexamethasone 10 mg IV ECG Indication: SOB/dyspnea Rate (beats per minute): 141 Rhythm: sinus tachycardia Findings: + other (RSR pattern in V1) Comparison ECG Date: from (September 03, 2020) Change: the following changes noted (ST no longer depressed in inferior leads) Code Status & VTE Plan Code Status Full VTE Prophylaxis Plan VTE Prophylaxis will be ordered: Yes PG Care Time/CCT Total # of Minutes Spent Total Time Spent with Patient: Total time spent is greater than 50% in coordination of care (as documented) at patient's floor/unit and/or counseling patient: Coding Level of Care Code 78377 Initial Inpt Care Lvl 3 Diagnoses Sepsis A41.9 COVID-19 U07.1 Catheter-associated urinary tract infection T83.511A; N39.0 Encounter type: initial encounter Indwelling urinary catheter type: indwelling urethral catheter Acute respiratory failure with hypoxia J96.01 Acute kidney injury N17.9 PTSD (post-traumatic stress disorder) F43.10 DVT prophylaxis Z29.9 (1) Catheter-associated urinary tract infection Encounter type: initial encounter Indwelling urinary catheter type: indwelling urethral catheter Qualified Code(s): T83.511A - Infection and inflammatory reaction due to indwelling urethral catheter, initial encounter; N39.0 - Urinary tract infection, site not specified
[2020-09-14] MEDS ORDERED: VANCOMYCIN CONSULT ACTIVE PRN (15:19)
[2020-09-14] MEDS ORDERED: CEFEPIME 2,000 MG in SYRINGE 0 ML IV STA (15:26)
[2020-09-14] MEDS ORDERED: VANCOMYCIN HCL 1,750 MG in SODIUM CHLORIDE 0.9% 500 ML IV ONE (15:45)
[2020-09-14] MEDS ORDERED: OPTIRAY 320 125ml IV ONE (16:15)
--- NOTE | 2020-09-14 16:28 | CT Scan Report ---
CT ANGIOGRAPHY OF THE CHEST, PULMONARY EMBOLUS PROTOCOL CLINICAL HISTORY: Shortness of breath. Chest pain. Covid. COMPARISON STUDY: Chest radiograph September 03, 2020 and September 14, 2020. TECHNIQUE: Following IV administration of 100 mL of Optiray-320, helical axial images of the chest we re obtained utilizing the pulmonary embolus protocol. Maximal intensity projections and sagittal and coronal reformats were viewed on an independent 3D workstation. IV contrast was administered withou t complication. Automated exposure control was utilized for the study. A dose lowering technique wa s utilized adhering to the principles of ALARA. CT DOSE: 543.95 mGycm FINDINGS: Extensive bilateral pulmonary emboli are noted, including a saddle embolus. Near occlusive pulmonary emboli are noted within the lobar pulmonary arteries with emboli within the distal right a nd left pulmonary arteries. The heart is mildly enlarged. Note is made of leftward bowing of the inte rventricular septum. There is dilatation of the right heart chambers. There is no pericardial effusio n. No thoracic aortic dissection is noted. Trace left pleural effusion is noted. There is no pneumoth orax. Lungs are suboptimally assessed given respiratory motion. Multifocal consolidation and groundgl ass opacities are noted within the lungs. Central airways are patent. Upper abdomen is unremarkable. IMPRESSION: 1. Extensive bilateral pulmonary emboli, including a saddle embolus. CT findings consistent with righ t heart strain with leftward bowing of the interventricular septum and dilatation of the right heart chambers. These findings were discussed with Dr. Bentley at time of dictation. 2. Multifocal consolidation ground glass opacities within the lungs suggestive of viral pneumonia. 3. Trace left pleural effusion. ACT 112: Negative or not required by law. Electronically signed by: Lalito Hercules M.D. 09/14/2020 4:27 PM
[2020-09-14] MEDS ORDERED: Heparin IV Adult Wt-Based Standard WITH Bolus Protocol IV STA (16:29)
[2020-09-14] MEDS ORDERED: HEPARIN SODIUM/DEXTROSE 25,000 UNITS/500 ML BAG IV SCH (16:30)
[2020-09-14] MEDS ORDERED: Heparin IV Adult Wt-Based Standard WITH Bolus Protocol IV SCH (16:32)
[2020-09-14] MEDS ORDERED: HEPARIN SOD (PORCINE) 1000 UNIT/ML 10 ML VIAL ONE (16:56)
[2020-09-14] MEDS ORDERED: HEPARIN IV BOLUS 6,000 UNITS in SYRINGE 0 ML IV ONE (17:00)
[2020-09-14] MEDS: HEPARIN SODIUM/DEXTROSE 25,000 UNITS/500 ML BAG IV SCH (17:05)
--- NOTE | 2020-09-14 19:12 | Pharmacy Report ---
Pharmacy Abx Dose Short Note - Date of Service September 14, 2020 - Assessment & Plan Assessment 65 year old M ordered vancomycin IV for treatment of possible bacterial pneumonia, left pyelonephritis * tested positive for SARS-Cov-2 on 09/03/20 * h/o Pseudomonas aeruginosa and MSSA bacteremia in April 2020 * K. pneumoniae isolated in urine on 09/03/20 * MRSA nasal swab pending Plan Vancomycin * Patient received a vanco 1750 mg (19.5 mg/kg) loading dose in the ED * Estimated ke and T1/2 based on current renal function (Scr 2.6 mg/dL, CrCl 32.8 mL/min): 0.031, 22.4 hr * Baseline Scr = 1.7 - 14.9 mg/dL * Further dosing to be determined based on 12/10 am labs Pharmacy will continue to follow and will adjust dose/frequency as necessary. Thank you.
[2020-09-14] MEDS ORDERED: ACETAMINOPHEN 325 MG TAB PO PRN (19:28)
[2020-09-14] MEDS ORDERED: ONDANSETRON INJ 2 MG/ML 2 ML VIAL IV PRN (19:28)
[2020-09-14] MEDS ORDERED: POLYETHYLENE (MIRALAX) 17 GM PACK PO PRN (19:28)
[2020-09-14] MEDS ORDERED: INFLUENZA ADMINISTRATION CHARGE ONE (19:47)
[2020-09-14 22:43] LABS: Appearance Urine Clear (Clear); Bacteria Urine Automated Negative (Negative); Bilirubin Urine Negative (Negative); Blood Urine Trace (Negative); Color Urine Dark Yellow; Epithelial Cell Urine Auto >30 /lpf (0-5); Glucose Urine UA Negative (Negative); Ketones Urine Negative (Negative); Leukocyte Esterase Urine Negative (Negative); Nitrite Urine Negative (Negative); Protein Urine 2+ (Negative); Specific Gravity Urine > 1.045 (1.000-1.030); Urobilinogen Urine Negative (Negative)
[2020-09-14 23:42] LABS: Partial Thromboplastin Ratio 3.2
[2020-09-14 23:48] LABS: Partial Thromboplastin Time 89.3 Seconds (21.0-31.0)
[2020-09-15] MEDS ORDERED: CEFEPIME 2,000 MG in SYRINGE 0 ML IV SCH (04:00)
[2020-09-15 06:59] LABS: Partial Thromboplastin Ratio 2.6
[2020-09-15 07:03] LABS: Partial Thromboplastin Time 72.6 Seconds (21.0-31.0)
[2020-09-15 07:12] LABS: Creatinine Clr Calc Pharmacy 45.2 ml/min; Est GFR (African American) 42.3; Est GFR (Non-African American) 36.5
[2020-09-15 07:30] LABS: Basophils # (auto) 0.01 K/uL (0-0.2); Basophils % (auto) 0.1 %; Hematocrit (blood only) 33.3 % (42-52); Hemoglobin 10.9 g/dL (14.0-18.0); Immature Granulocytes # (auto) 0.05 K/uL (0.00-0.02); Immature Granulocytes % (auto) 0.6 %; Lymphocytes # (auto) 1.14 K/uL (1.2-3.4); Lymphocytes % (auto) 12.7 %; Mean Corpuscular Hemoglobin 30.2 pg (25-34); Mean Corpuscular Hgb Conc 32.7 g/dL (32-36); Mean Corpuscular Volume 92.2 fL (80-100); Mean Platelet Volume 9.1 fL (7.4-10.4); Monocytes % (auto) 11.1 %; Neutrophils % (auto) 75.5 %; Platelet Count 232 K/uL (130-400); RDW Coefficient of Variation 14.2 % (11.5-14.5); RDW Standard Deviation 47.8 fL (36.4-46.3); Red Blood Count 3.61 M/uL (4.7-6.1)
[2020-09-15 07:50] LABS: Albumin Level 2.5 gm/dl (3.4-5.0); BUN Creatinine Ratio 20.2 (10-20); Calcium 9.3 mg/dl (8.5-10.1); Creatinine Clr Calc Pharmacy 44.5 ml/min; Est GFR (African American) 41.5; Est GFR (Non-African American) 35.8; Potassium 4.6 mmol/L (3.5-5.1)
[2020-09-15 08:04] LABS: Albumin Globulin Ratio 0.5 (0.9-2); Bilirubin,Total 0.4 mg/dl (0.2-1); Globulin 4.8 gm/dl (2.5-4.0); Total Protein 7.3 gm/dl (6.4-8.2)
--- NOTE | 2020-09-15 08:45 | Hospitalist Progress Note ---
Date of Service September 15, 2020 Assessment & Plan (1) Pulmonary embolism: large, bilateral, saddle embolism BP is in the 90's systolic close monitoring, if he would get hypotensive then would need tPA likely provoked by COVID 19 infection saturations are in 90's on 5L (2) COVID-19: Dexamethasone 6 mg IV every morning Unclear onset of symptoms and diagnosis since Sep 03 therefore deferred remdesivir and convalescent plasma as symptoms more likely secondary to PE saturations stable on low flow nasal canula eating well close monitoring (3) Sepsis: unclear if he actually has sepsis, suspected at time of admission reviewing records feel that his symptoms most likely combination of large central PE and COVID procalcitonin negative UA is clean without signs of infection monitor off antibiotics at this time hypotension and elevated lactic acid more likely due to PE and hypoxia (4) Catheter-associated urinary tract infection: UA clean monitor off antibiotics was treated for 10 days with Cipro for prior infection likely the left flank pain is related to PE (5) Acute respiratory failure with hypoxia: due to COVID and PE (large, bilateral, saddle) breathing well on low flow nasal canula this morning monitor closely for any deterioration if profound hypoxia or hypotension then use tPA (6) Acute kidney injury: Hold lisinopril Cr is 1.9 this morning repeat tomorrow (7) DVT prophylaxis: Pending CT for PE Admission and Anticipated Discharge Date Admission Date: September 14, 2020 Subjective patient sitting up in bed this morning, breathing fairly well on only 5L NC, no distress he denies any chest pain/pressure reviewed chart, labs, imaging, main issue is that he has a large PE bilaterally, saddle embolism procalcitonin normal, no clear signs of bacterial infection known to have COVID since 09/[address] chest shows viral pneumonia he ate well this morning, first time he has eaten in a few days no fever/chills, no cough, no GI symptoms labs show WBC 9k, Hb 10, plts 232 ptt 72.6 Cr is 1.94, K 4.6 BP is borderline low, systolic pressures have been in 90's since admission if he drops lower then would likely need tPA Review of Systems Review of Systems: All systems reviewed & are unremarkable except as noted in Subjective Physical Exam Constitutional: well developed, well nourished, + ill appearing and + frail appearing; no acute distress Neck: trachea midline, no thyromegaly Respiratory: + labored breathing and + tachypneic; no cough Auscultation: no crackles, no rales, no rhonchi and no wheezes Cardiovascular: RRR, no murmur, no edema Gastrointestinal (Abdomen): normal bowel sounds, soft, nontender, no hepatosplenomegaly Musculoskeletal: no cyanosis or clubbing, extremities motor strength 5/5 Skin: no rashes, warm and dry Neurologic: patellar DTR's 2+ bilat, sensation intact and PERRL, EOMI, accommodation nl, no face palsy, no dysarthria Psychiatric: A+Ox3, euthymic affect Lymphatic: no cervical or axillary lymphadenopathy Results & Data Results & Data ([facility]) Vital Signs (Past 12 Hours) Vital Signs Temp Pulse Pulse Resp BP BP Pulse Ox 09/15/20 07:32 72 09/15/20 07:22 36.8 C 73 20 98/71 L 96 09/15/20 03:50 36.5 C 83 24 108/73 96 09/15/20 02:23 80 31 H 96 09/15/20 00:13 36.5 C 84 22 90/74 L 97 09/14/20 22:56 84 28 H 98 09/14/20 22:05 30 H 97 09/14/20 22:00 85 37 H 99/73 L 94 09/14/20 21:00 85 25 H 88/76 L 98 09/14/20 20:54 88 30 H 98 Laboratory Results Laboratory Results - last 24 hr 09/14/20 09/14/20 09/14/20 13:07 13:07 13:07 WBC 11.93 H RBC 4.38 L Hgb 13.5 L Hct 41.0 L MCV 93.6 MCH 30.8 MCHC 32.9 RDW Std Deviation 47.8 H RDW Coeff of Osmin 13.9 Plt Count 277 MPV 9.4 Immature Gran % (Auto) 0.3 Neut % (Auto) 74.7 Lymph % (Auto) 15.8 Dawson % (Auto) 7.9 Eos % (Auto) 1.1 Baso % (Auto) 0.2 Neut # (Auto) 8.91 H Lymph # (Auto) 1.89 Dawson # (Auto) 0.94 H Eos # (Auto) 0.13 Baso # (Auto) 0.02 Immature Gran # (Auto) 0.04 H Absolute Nucleated RBC 0.02 H Nucleated RBC % (auto) 0.1 PT 11.5 INR 1.1 APTT 25.5 PTT Ratio 0.9 D-Dimer > 34872 H* VBG pH VBG pCO2 VBG pO2 VBG HCO3 VBG O2 Saturation VBG Base Excess Barometric Pressure Sodium 136 Potassium 4.2 Chloride 102 Carbon Dioxide 20 L Anion Gap 14.0 H BUN 28 H Creatinine 2.60 H Est Cr Clr Drug Dosing 32.8 Est GFR ( Amer) 29.1 Est GFR (Non-Af Amer) 25.1 BUN/Creatinine Ratio 10.9 Glucose 181 H Lactate Calcium 9.7 Magnesium 2.5 H Total Bilirubin 0.7 AST 22 ALT 30 Alkaline Phosphatase 69 Troponin I 0.792 H* Total Protein 8.9 H Albumin 3.2 L Globulin 5.7 H Albumin/Globulin Ratio 0.6 L Procalcitonin Urine Color Urine Appearance Urine pH Ur Specific [place] Urine Protein Urine Glucose (UA) Urine Ketones Urine Blood Urine Nitrite Urine Bilirubin Urine Urobilinogen Ur Leukocyte Esterase Urine WBC (Auto) Urine RBC (Auto) U Hyaline Cast (Auto) U Epithel Cells (Auto) Urine Bacteria (Auto) Ur Renal Epithelial Cell Granular Casts WBC Casts Nasal Screen MRSA (PCR) Hepatitis C Ab Screen Blood Type Antibody Screen 09/14/20 09/14/20 09/14/20 13:07 13:07 13:07 WBC RBC Hgb Hct MCV MCH MCHC RDW Std Deviation RDW Coeff of [place]min Plt Count MPV Immature Gran % (Auto) Neut % (Auto) Lymph % (Auto) Dawson % (Auto) Eos % (Auto) Baso % (Auto) Neut # (Auto) Lymph # (Auto) Dawson # (Auto) Eos # (Auto) Baso # (Auto) Immature Gran # (Auto) Absolute Nucleated RBC Nucleated RBC % (auto) PT INR APTT PTT Ratio D-Dimer VBG pH VBG pCO2 VBG pO2 VBG HCO3 VBG O2 Saturation VBG Base Excess Barometric Pressure Sodium Potassium Chloride Carbon Dioxide Anion Gap BUN Creatinine Est Cr Clr Drug Dosing Est GFR ( Amer) Est GFR (Non-Af Amer) BUN/Creatinine Ratio Glucose Lactate 6.3 H* Calcium Magnesium Total Bilirubin AST ALT Alkaline Phosphatase Troponin I Total Protein Albumin Globulin Albumin/Globulin Ratio Procalcitonin 0.18 Urine Color Urine Appearance Urine pH Ur Specific [place] Urine Protein Urine Glucose (UA) Urine Ketones Urine Blood Urine Nitrite Urine Bilirubin Urine Urobilinogen Ur Leukocyte Esterase Urine WBC (Auto) Urine RBC (Auto) U Hyaline Cast (Auto) U Epithel Cells (Auto) Urine Bacteria (Auto) Ur Renal Epithelial Cell Granular Casts WBC Casts Nasal Screen MRSA (PCR) Hepatitis C Ab Screen Neg Blood Type Antibody Screen 09/14/20 09/14/20 09/14/20 13:35 15:31 20:15 WBC RBC Hgb Hct MCV MCH MCHC RDW Std Deviation RDW Coeff of [place] Plt Count MPV Immature Gran % (Auto) Neut % (Auto) Lymph % (Auto) Dawson % (Auto) Eos % (Auto) Baso % (Auto) Neut # (Auto) Lymph # (Auto) Dawson # (Auto) Eos # (Auto) Baso # (Auto) Immature Gran # (Auto) Absolute Nucleated RBC Nucleated RBC % (auto) PT INR APTT PTT Ratio D-Dimer VBG pH VBG pCO2 VBG pO2 VBG HCO3 VBG O2 Saturation VBG Base Excess Barometric Pressure Sodium Potassium Chloride Carbon Dioxide Anion Gap BUN Creatinine Est Cr Clr Drug Dosing Est GFR ( Amer) Est GFR (Non-Af Amer) BUN/Creatinine Ratio Glucose Lactate 3.4 H* Calcium Magnesium Total Bilirubin AST ALT Alkaline Phosphatase Troponin I Total Protein Albumin Globulin Albumin/Globulin Ratio Procalcitonin Urine Color Urine Appearance Urine pH Ur Specific [place] Urine Protein Urine Glucose (UA) Urine Ketones Urine Blood Urine Nitrite Urine Bilirubin Urine Urobilinogen Ur Leukocyte Esterase Urine WBC (Auto) Urine RBC (Auto) U Hyaline Cast (Auto) U Epithel Cells (Auto) Urine Bacteria (Auto) Ur Renal Epithelial Cell Granular Casts WBC Casts Nasal Screen MRSA (PCR) Negative Hepatitis C Ab Screen Blood Type A Positive Antibody Screen NEGATIVE 09/14/20 09/14/20 09/14/20 22:34 22:51 Unknown WBC RBC Hgb Hct MCV MCH MCHC RDW Std Deviation RDW Coeff of [place] Plt Count MPV Immature Gran % (Auto) Neut % (Auto) Lymph % (Auto) Dawson % (Auto) Eos % (Auto) Baso % (Auto) Neut # (Auto) Lymph # (Auto) Dawson # (Auto) Eos # (Auto) Baso # (Auto) Immature Gran # (Auto) Absolute Nucleated RBC Nucleated RBC % (auto) PT INR APTT 89.3 H* PTT Ratio 3.2 D-Dimer VBG pH 7.36 VBG pCO2 35 L VBG pO2 43 VBG HCO3 20 VBG O2 Saturation 75.3 VBG Base Excess -5.2 Barometric Pressure 727.6 Sodium Potassium Chloride Carbon Dioxide Anion Gap BUN Creatinine Est Cr Clr Drug Dosing Est GFR ( Amer) Est GFR (Non-Af Amer) BUN/Creatinine Ratio Glucose Lactate Calcium Magnesium Total Bilirubin AST ALT Alkaline Phosphatase Troponin I Total Protein Albumin Globulin Albumin/Globulin Ratio Procalcitonin Urine Color Dark Yellow Urine Appearance Clear Urine pH 5.0 Ur Specific [place] > 1.045 H Urine Protein 2+ H Urine Glucose (UA) Negative Urine Ketones Negative Urine Blood Trace H Urine Nitrite Negative Urine Bilirubin Negative Urine Urobilinogen Negative Ur Leukocyte Esterase Negative Urine WBC (Auto) 1-5 Urine RBC (Auto) 5-10 H U Hyaline Cast (Auto) 1-5 U Epithel Cells (Auto) >30 H Urine Bacteria (Auto) Negative Ur Renal Epithelial Cell Not Reportable Granular Casts 1-5 H WBC Casts 1-5 H Nasal Screen MRSA (PCR) Hepatitis C Ab Screen Blood Type Antibody Screen 09/15/20 09/15/20 09/15/20 06:21 06:21 06:21 WBC 9.00 RBC 3.61 L Hgb 10.9 L Hct 33.3 L MCV 92.2 MCH 30.2 MCHC 32.7 RDW Std Deviation 47.8 H RDW Coeff of Osmin 14.2 Plt Count 232 MPV 9.1 Immature Gran % (Auto) 0.6 Neut % (Auto) 75.5 Lymph % (Auto) 12.7 Dawson % (Auto) 11.1 Eos % (Auto) 0.0 Baso % (Auto) 0.1 Neut # (Auto) 6.80 H Lymph # (Auto) 1.14 L Dawson # (Auto) 1.00 H Eos # (Auto) 0.00 Baso # (Auto) 0.01 Immature Gran # (Auto) 0.05 H Absolute Nucleated RBC Nucleated RBC % (auto) PT INR APTT 72.6 H* PTT Ratio 2.6 D-Dimer VBG pH VBG pCO2 VBG pO2 VBG HCO3 VBG O2 Saturation VBG Base Excess Barometric Pressure Sodium Potassium Chloride Carbon Dioxide Anion Gap BUN Creatinine 1.91 H D Est Cr Clr Drug Dosing 45.2 Est GFR ( Amer) 42.3 Est GFR (Non-Af Amer) 36.5 BUN/Creatinine Ratio Glucose Lactate Calcium Magnesium Total Bilirubin AST ALT Alkaline Phosphatase Troponin I Total Protein Albumin Globulin Albumin/Globulin Ratio Procalcitonin Urine Color Urine Appearance Urine pH Ur Specific [place] Urine Protein Urine Glucose (UA) Urine Ketones Urine Blood Urine Nitrite Urine Bilirubin Urine Urobilinogen Ur Leukocyte Esterase Urine WBC (Auto) Urine RBC (Auto) U Hyaline Cast (Auto) U Epithel Cells (Auto) Urine Bacteria (Auto) Ur Renal Epithelial Cell Granular Casts WBC Casts Nasal Screen MRSA (PCR) Hepatitis C Ab Screen Blood Type Antibody Screen 09/15/20 06:21 WBC RBC Hgb Hct MCV MCH MCHC RDW Std Deviation RDW Coeff of [place] Plt Count MPV Immature Gran % (Auto) Neut % (Auto) Lymph % (Auto) Dawson % (Auto) Eos % (Auto) Baso % (Auto) Neut # (Auto) Lymph # (Auto) Dawson # (Auto) Eos # (Auto) Baso # (Auto) Immature Gran # (Auto) Absolute Nucleated RBC Nucleated RBC % (auto) PT INR APTT PTT Ratio D-Dimer VBG pH VBG pCO2 VBG pO2 VBG HCO3 VBG O2 Saturation VBG Base Excess Barometric Pressure Sodium 138 Potassium 4.6 Chloride 111 H Carbon Dioxide 17 L Anion Gap 10.0 BUN 39 H Creatinine 1.94 H Est Cr Clr Drug Dosing 44.5 Est GFR ( Amer) 41.5 Est GFR (Non-Af Amer) 35.8 BUN/Creatinine Ratio 20.2 H Glucose 122 H Lactate Calcium 9.3 Magnesium Total Bilirubin 0.4 AST 18 ALT 22 Alkaline Phosphatase 53 Troponin I Total Protein 7.3 Albumin 2.5 L Globulin 4.8 H Albumin/Globulin Ratio 0.5 L Procalcitonin Urine Color Urine Appearance Urine pH Ur Specific [place] Urine Protein Urine Glucose (UA) Urine Ketones Urine Blood Urine Nitrite Urine Bilirubin Urine Urobilinogen Ur Leukocyte Esterase Urine WBC (Auto) Urine RBC (Auto) U Hyaline Cast (Auto) U Epithel Cells (Auto) Urine Bacteria (Auto) Ur Renal Epithelial Cell Granular Casts WBC Casts Nasal Screen MRSA (PCR) Hepatitis C Ab Screen Blood Type Antibody Screen Medications Administered Current Inpatient Medications Acetaminophen (Acetaminophen 325 Mg Tab) 650 mg PO Q4H PRN PRN Reason: Pain or Fever Stop: 10/14/20 19:27 Dexamethasone (Dexamethasone Sod Inj 4 Mg/Ml Vial) 6 mg IV QAM [facility] Stop: 09/24/20 08:59 Duloxetine HCl (Duloxetine Hcl 30 Mg Cap) 30 mg PO QAM [facility] Stop: 10/15/20 08:59 Duloxetine HCl (Duloxetine Hcl 60 Mg Cap) 60 mg PO QAM [facility] Stop: 10/15/20 08:59 Finasteride (Finasteride 5 Mg Tab) 5 mg PO DAILY [facility] Stop: 10/15/20 08:59 Heparin Sodium/Dextrose (Heparin Sodium/Dextrose) 25,000 units in 500 mls @ 24 mls/hr IV .[id number] [facility]; Protocol Stop: 10/14/20 16:59 Last Titration: 09/15/20 07:10 Dose: 1,200 units/hr, 24 mls/hr Documented by: Influenza Virus Vaccine Quadrival (Influenza Virus Quad Vaccine 0.5 Ml Syr) 0.5 ml IM .ONCE ONE Stop: 09/16/20 08:01 Ondansetron HCl (Ondansetron Inj 2 Mg/Ml 2 Ml Vial) 4 mg IV Q6H PRN PRN Reason: Nausea Stop: 10/14/20 19:27 Polyethylene Glycol (Polyethylene (Miralax) 17 Gm Pack) 17 gm PO DAILY PRN PRN Reason: Constipation Stop: 10/14/20 19:27 PG Care Time/CCT Total # of Minutes Spent Total Time Spent with Patient: Total time spent is greater than 50% in coordination of care (as documented) at patient's floor/unit and/or counseling patient: Critical Care Time: Yes Total Critical Care Time: 36 Large saddle PE and COVID are potentially life threatening, 36 minutes of critical care time spent on this patient Coding Level of Care Code 53417 Subseq Hosp Care Lvl 3 Diagnoses Pulmonary embolism I26.02 Acute cor pulmonale presence: with acute cor pulmonale Chronicity: acute Pulmonary embolism type: saddle COVID-19 U07.1 Sepsis A41.9 Catheter-associated urinary tract infection T83.511A; N39.0 Encounter type: initial encounter Indwelling urinary catheter type: indwelling urethral catheter Acute respiratory failure with hypoxia J96.01 Acute kidney injury N17.9 DVT prophylaxis Z29.9 Additional Codes Critical Care Time - Critical Care Time: Yes ([id number]) (1) Catheter-associated urinary tract infection Encounter type: initial encounter Indwelling urinary catheter type: indwelling urethral catheter Qualified Code(s): T83.511A - Infection and inflammatory reaction due to indwelling urethral catheter, initial encounter; N39.0 - Urinary tract infection, site not specified (2) Pulmonary embolism Acute cor pulmonale presence: with acute cor pulmonale Chronicity: acute Pulmonary embolism type: saddle Qualified Code(s): I26.02 - Saddle embolus of pulmonary artery with acute cor pulmonale
[2020-09-15] MEDS ORDERED: FINASTERIDE 5 MG TAB PO SCH (09:00)
--- NOTE | 2020-09-15 09:41 | Pulmonary Consultation ---
Date of Consultation September 15, 2020 Assessment & Plan (1) Pulmonary embolism: Impression: 65-year-old incarcerated male with recent history of Covid presenting now with a large PE. He initially was hypotensive and does have positive biomarkers but is no longer tachycardic and is now normotensive. I met with the patient to discuss options including thrombolytic therapy administered systemically versus continued heparin and clinical observation. The patient would like to continue clinical observation as he feels he is doing reasonably well currently. Recommendations: 1. PE with borderline hemodynamics: Would monitor the patient closely and if his blood pressure should drop would have a low threshold for consideration of thrombolytics. He may benefit from half dose thrombolytics (50 mg TPA) rather than the full 100 mg. Would continue heparin drip for now. Were dosing based on PTT and while that can be problematic in Covid patients, his initial PTT was relatively normal. Will need at least 3 to 6 months of anticoagulation. Can consider transition to DOAC when stable for dismissal from the hospital 2. Would continue to monitor markers of heart strain including lactate, troponin, and BNP. Echocardiogram and duplex ultrasound are pending. 3. Continue supplemental oxygen titrated to keep saturations at or above 88%. Should his oxygenation worsen, would have a low threshold for proceeding with thrombolytic therapy. 4. We will continue to follow with you. Feel free to contact us if we can be of additional assistance Acute cor pulmonale presence: with acute cor pulmonale Chronicity: acute Pulmonary embolism type: saddle Qualified Code(s): I26.02 - Saddle embolus of pulmonary artery with acute cor pulmonale (2) Acute respiratory failure with hypoxia: (3) COVID-19: History of Present Illness Attending Physician: Riley Mckeon DO History of Present Illness Asked by hospitalist to evaluate this patient with hypoxemic respiratory failure, Covid, and PE. History is obtained from discussion with the hospitalist as well as discussion with the patient and reviewed electronic medical record. The patient is a 65-year-old inmate diagnosed with Covid September 03 he was brought to the emergency room after a fall found to be hypotensive tachycardic and hypoxemic. He reported some left-sided chest discomfort as well as a nonproductive cough fevers and myalgias. He had a CT scan performed which demonstrated significant clot burden with a saddle embolus. The patient was initially hypotensive but is now normotensive. He never demonstrated tachycardia. When I questioned the patient he denies any syncope, presyncope, or palpitations. He is not had any significant lower extremity edema. Allergies Allergy/AdvReac Type Severity Reaction Status Date / Time WOOL Allergy Unknown Unknown Uncoded 09/14/20 14:10 Home Medications Medication Instructions Recorded Confirmed Type duloxetine 30 mg PO QAM 12/17/18 09/14/20 History duloxetine 60 mg PO QAM 12/17/18 09/14/20 History finasteride 5 mg PO DAILY 11/11/19 09/14/20 History lisinopril 10 mg PO DAILY 05/06/20 09/14/20 History ciprofloxacin HCl 500 mg PO BID #14 tab 09/03/20 09/14/20 Rx Patient History Medical History CKD (chronic kidney disease) stage 3, GFR 30-59 ml/min Diabetes HTN (hypertension), benign Hyperlipidemia Inguinal hernia Major depressive disorder Pulmonary nodules Umbilical hernia Urinary retention Surgical History No pertinent past surgical history Family History Sister Diabetes Hypertension Brother Hypertension Father Nephrolithiasis Lung disease Other No pertinent family history in first degree relatives Social History Smoking Status: Former smoker Tobacco Type: Cigarettes packs per day: 1; Years Smoked: 25; Number of Years Since Quit: 5; Second Hand Exposure: No; Hx Alcohol Use: No Hx Substance Use: No Preferred Language: B[place] Communication Ability: Effective Finish Remover Required: No Beliefs That Will Affect Care: None marital status: Single Current Living Situation: Other Current Living Situation Comment: ino Feels Safe at Home: Yes Assistive Devices: None Review of Systems Review of Systems: Please refer to admission H&P. No additions or deletions Physical Exam Constitutional: WD/WN, vitals as above Neck: trachea midline, no thyromegaly Respiratory: normal respiratory effort, lungs clear to auscultation Cardiovascular: RRR, no murmur, no edema Gastrointestinal (Abdomen): normal bowel sounds, soft, nontender, no hepatosplenomegaly Musculoskeletal: Extremities: extremities normal to inspection Skin: no rashes, warm and dry Neurologic: Nonfocal exam Lymphatic: no cervical lymphadenopathy Results & Data Results & Data ([facility]) Vital Signs (Past 12 Hours) Vital Signs Temp Pulse Pulse Resp BP BP Pulse Ox 09/15/20 07:32 72 09/15/20 07:22 36.8 C 73 20 98/71 L 96 09/15/20 03:50 36.5 C 83 24 108/73 96 09/15/20 02:23 80 31 H 96 09/15/20 00:13 36.5 C 84 22 90/74 L 97 09/14/20 22:56 84 28 H 98 09/14/20 22:05 30 H 97 09/14/20 22:00 85 37 H 99/73 L 94 Laboratory Results 09/15/20 06:21 09/15/20 06:21 Blood gas showed a pH of 7.36, CO2 of 35 on the venous gas Initial lactate 3.4 Troponin [address] angiogram was independently reviewed. There is extensive filling defects within the pulmonary vasculature including a saddle embolus. There is some right heart strain noted. Multifocal groundglass opacities again noted with trace left pleural effusion. PG Care Time/CCT Total # of Minutes Spent Total Time Spent with Patient: Total time spent is greater than 50% in coordination of care (as documented) at patient's floor/unit and/or counseling patient: Coding Level of Care Code 94665 Office/OBS Consult Lvl 4 Diagnoses Pulmonary embolism I26.02 Acute cor pulmonale presence: with acute cor pulmonale Chronicity: acute Pulmonary embolism type: saddle Acute respiratory failure with hypoxia J96.01 COVID-19 U07.1
[2020-09-15] MEDS ORDERED: VANCOMYCIN HCL 1,500 MG in SODIUM CHLORIDE 0.9% 500 ML IV SCH (10:00)
[2020-09-15] MEDS: HEPARIN SODIUM/DEXTROSE 25,000 UNITS/500 ML BAG IV SCH ×2 (10:33→17:40)
[2020-09-15] MEDS: DULoxetine HCL 60 MG CAP PO SCH (10:35)
[2020-09-15] MEDS: DEXAMETHASONE SOD INJ 4 MG/ML VIAL IV SCH (10:35)
[2020-09-15] MEDS: DULoxetine HCL 30 MG CAP PO SCH (10:35)
[2020-09-15] MEDS ORDERED: DC ALL ANTICOAGULANTS ONE (12:42)
[2020-09-15] MEDS ORDERED: PRIMARY PLUMSET, PE LINED TUBING, 113 IN, NON-DEHP (2260-0500) IV ONE (13:00)
[2020-09-15] MEDS ORDERED: SODIUM CHLORIDE 0.9% 50 ML BAG IV ONE (13:00)
[2020-09-15] MEDS ORDERED: ALTEPLASE, RECOMBINANT 50 MG in EMPTY BAG 0 ML IV ONE (13:00)
[2020-09-15 13:28] LABS: INR 1.1 (0.9-1.1); Partial Thromboplastin Ratio 1.6; Prothrombin Time 11.1 Seconds (9.0-12.0)
[2020-09-15] MEDS ORDERED: Heparin IV Adult Wt-Based Low-Dose *NO* Bolus Protocol IV SCH (14:15)
[2020-09-15] MEDS ORDERED: SODIUM CHLORIDE 0.9% 50 ML BAG IV SCH (15:00)
[2020-09-15 16:43] LABS: Hematocrit (blood only) 32.8 % (42-52); Hemoglobin 10.8 g/dL (14.0-18.0); Mean Corpuscular Hemoglobin 30.5 pg (25-34); Mean Corpuscular Hgb Conc 32.9 g/dL (32-36); Mean Corpuscular Volume 92.7 fL (80-100); Mean Platelet Volume 9.5 fL (7.4-10.4); Platelet Count 243 K/uL (130-400); RDW Coefficient of Variation 14.2 % (11.5-14.5); RDW Standard Deviation 48.2 fL (36.4-46.3); Red Blood Count 3.54 M/uL (4.7-6.1); White Blood Count 13.15 K/uL (4.8-10.8)
[2020-09-15 16:55] LABS: Partial Thromboplastin Ratio 1.1; Partial Thromboplastin Time 30.5 Seconds (21.0-31.0)
[2020-09-15] MEDS ORDERED: *Start* Heparin IV Low Dose IV ONE (17:05)
--- NOTE | 2020-09-15 18:11 | XCELERA ---
[id number] \\[id number]
[2020-09-15 22:33] LABS: Partial Thromboplastin Ratio 1.1; Partial Thromboplastin Time 31.6 Seconds (21.0-31.0)
[2020-09-15] MEDS ORDERED: HEPARIN IV BOLUS 3,000 UNITS in SYRINGE 0 ML IV ONE (22:42)
[2020-09-16 05:43] LABS: Hematocrit (blood only) 33.3 % (42-52); Hemoglobin 10.9 g/dL (14.0-18.0); Mean Corpuscular Hemoglobin 30.1 pg (25-34); Mean Corpuscular Hgb Conc 32.7 g/dL (32-36); Mean Platelet Volume 9.4 fL (7.4-10.4); Platelet Count 254 K/uL (130-400); RDW Coefficient of Variation 14.2 % (11.5-14.5); RDW Standard Deviation 47.8 fL (36.4-46.3); Red Blood Count 3.62 M/uL (4.7-6.1); White Blood Count 12.25 K/uL (4.8-10.8)
[2020-09-16 05:53] LABS: Partial Thromboplastin Ratio 1.4
[2020-09-16 06:00] LABS: BUN Creatinine Ratio 25.6 (10-20); Calcium 8.7 mg/dl (8.5-10.1); Creatinine Clr Calc Pharmacy 46.9 ml/min; Est GFR (African American) 44.2; Est GFR (Non-African American) 38.2; Magnesium 2.5 mg/dl (1.8-2.4); Potassium 4.4 mmol/L (3.5-5.1)
[2020-09-16 06:11] LABS: Phosphorus 3.2 mg/dl (2.5-4.9); Troponin I 0.433 ng/ml (0-0.045)
[2020-09-16] MEDS ORDERED: INFLUENZA VIRUS QUAD VACCINE 0.5 ML SYR IM ONE (08:00)
[2020-09-16] MEDS: DULoxetine HCL 60 MG CAP PO SCH (08:06)
[2020-09-16] MEDS: DULoxetine HCL 30 MG CAP PO SCH (08:06)
[2020-09-16] MEDS: DEXAMETHASONE SOD INJ 4 MG/ML VIAL IV SCH (08:17)
--- NOTE | 2020-09-16 09:49 | Hospitalist Progress Note ---
Date of Service September 16, 2020 Assessment & Plan (1) Pulmonary embolism: large, bilateral, saddle embolism BP in the 90's systolic on 09/15 BNP elevated, Echo with RV dilation and poor function discussed with Dr Crawford, decided to give him tPA 50mg on 09/15 at 1300 good response, after two hours BP went from 90's systolic to 120 systolic today he is on room air continue heparin drip, start Coumadin tomorrow will need to be here a few days on the heparin change back to PCU status after 1300, was ICU due to tPA administration (2) COVID-19: Dexamethasone 6 mg IV every morning Unclear onset of symptoms and diagnosis since Sep 03 therefore deferred remdesivir and convalescent plasma as symptoms more likely secondary to PE saturations stable on room air today eating well close monitoring if he remains off oxygen today then stop dexamethasone as hypoxia was more likely due to large central PE (3) Catheter-associated urinary tract infection: UA clean monitor off antibiotics was treated for 10 days with Cipro for prior infection likely the left flank pain is related to PE (4) Sepsis: doubt sepsis reviewing records feel that his symptoms most likely combination of large central PE and COVID procalcitonin negative UA is clean without signs of infection monitor off antibiotics at this time hypotension and elevated lactic acid more likely due to PE and hypoxia (5) Acute respiratory failure with hypoxia: due to PE (large, bilateral, saddle) breathing well on room air today responded well to tPA (6) Acute kidney injury: Hold lisinopril Cr is 1.84 this morning, making urine via fontana repeat tomorrow (7) PTSD (post-traumatic stress disorder): Continue duloxetine 90 mg p.o. every morning (8) DVT prophylaxis: Pending CT for PE Admission and Anticipated Discharge Date Admission Date: September 14, 2020 Subjective patient doing really well this morning breathing room air, no chest pain, minimal dyspnea, no cough, no fever eating well BP is up to 130's after the tPA yesterday discussed plan with Dr. Crawford, he recommends heparin drip for a few days, transition to oral anticoagulation [facility] will not cover DOAC so will use Coumadin labs show WBC 12k, Hb 10, Cr 1.84 and electrolytes stable Review of Systems Review of Systems: All systems reviewed & are unremarkable except as noted in Subjective Physical Exam Constitutional: well developed, well nourished, + ill appearing and + frail appearing; no acute distress Neck: trachea midline, no thyromegaly Respiratory: normal respiratory effort; no respiratory distress and no cough Auscultation: no crackles, no rales, no rhonchi and no wheezes Cardiovascular: RRR, no murmur, no edema Gastrointestinal (Abdomen): normal bowel sounds, soft, nontender, no hepatosplenomegaly Musculoskeletal: no cyanosis or clubbing, extremities motor strength 5/5 Skin: no rashes, warm and dry Neurologic: patellar DTR's 2+ bilat, sensation intact and PERRL, EOMI, accommodation nl, no face palsy, no dysarthria Psychiatric: A+Ox3, euthymic affect Lymphatic: no cervical or axillary lymphadenopathy Results & Data Results & Data ([facility]) Vital Signs (Past 12 Hours) Vital Signs Temp Pulse Resp BP Pulse Ox 09/16/20 08:40 93 09/16/20 08:20 95 09/16/20 08:02 56 L 16 134/84 96 09/16/20 07:02 36.5 C 47 L 16 120/80 97 09/16/20 06:02 51 L 20 131/85 96 09/16/20 05:02 49 L 20 127/65 96 09/16/20 04:02 36.6 C 54 L 20 128/79 96 09/16/20 03:02 50 L 20 122/60 97 09/16/20 02:02 49 L 20 123/75 96 09/16/20 01:02 53 L 20 124/77 96 09/16/20 00:02 36.4 C L 56 L 20 104/78 96 09/15/20 23:02 57 L 18 120/75 96 09/15/20 22:02 60 20 124/74 98 Laboratory Results Laboratory Results - last 24 hr 09/15/20 09/15/20 09/15/20 06:21 10:36 12:57 WBC RBC Hgb Hct MCV MCH MCHC RDW Std Deviation RDW Coeff of Osmin Plt Count MPV PT 11.1 INR 1.1 APTT 44.0 H PTT Ratio 1.6 Sodium Potassium Chloride Carbon Dioxide Anion Gap BUN Creatinine Est Cr Clr Drug Dosing Est GFR ( Amer) Est GFR (Non-Af Amer) BUN/Creatinine Ratio Glucose POC Glucose Lactate 3.8 H* Calcium Phosphorus Magnesium Troponin I NT-Pro-B Natriuret Pep 9899 H Blood Type Antibody Screen 09/15/20 09/15/20 09/15/20 12:57 16:22 16:22 WBC 13.15 H RBC 3.54 L Hgb 10.8 L Hct 32.8 L MCV 92.7 MCH 30.5 MCHC 32.9 RDW Std Deviation 48.2 H RDW Coeff of Osmin 14.2 Plt Count 243 MPV 9.5 PT INR APTT 30.5 PTT Ratio 1.1 Sodium Potassium Chloride Carbon Dioxide Anion Gap BUN Creatinine Est Cr Clr Drug Dosing Est GFR ( Amer) Est GFR (Non-Af Amer) BUN/Creatinine Ratio Glucose POC Glucose Lactate Calcium Phosphorus Magnesium Troponin I NT-Pro-B Natriuret Pep Blood Type Cancelled Antibody Screen Cancelled 09/15/20 09/15/20 09/16/20 20:51 21:54 05:32 WBC RBC Hgb Hct MCV MCH MCHC RDW Std Deviation RDW Coeff of Osmin Plt Count MPV PT INR APTT Cancelled 31.6 H PTT Ratio Cancelled 1.1 Sodium 137 Potassium 4.4 Chloride 110 H Carbon Dioxide 21 Anion Gap 6.0 BUN 47 H Creatinine 1.84 H Est Cr Clr Drug Dosing 46.9 Est GFR ( Amer) 44.2 Est GFR (Non-Af Amer) 38.2 BUN/Creatinine Ratio 25.6 H Glucose 114 H POC Glucose Lactate Calcium 8.7 Phosphorus 3.2 Magnesium 2.5 H Troponin I 0.433 H* NT-Pro-B Natriuret Pep Blood Type Antibody Screen 09/16/20 09/16/20 09/16/20 05:32 05:32 05:33 WBC 12.25 H RBC 3.62 L Hgb 10.9 L Hct 33.3 L MCV 92.0 MCH 30.1 MCHC 32.7 RDW Std Deviation 47.8 H RDW Coeff of Osmin 14.2 Plt Count 254 MPV 9.4 PT INR APTT 40.0 H PTT Ratio 1.4 Sodium Potassium Chloride Carbon Dioxide Anion Gap BUN Creatinine Est Cr Clr Drug Dosing Est GFR ( Amer) Est GFR (Non-Af Amer) BUN/Creatinine Ratio Glucose POC Glucose Lactate 1.0 Calcium Phosphorus Magnesium Troponin I NT-Pro-B Natriuret Pep Blood Type Antibody Screen 09/16/20 07:21 WBC RBC Hgb Hct MCV MCH MCHC RDW Std Deviation RDW Coeff of Osmin Plt Count MPV PT INR APTT PTT Ratio Sodium Potassium Chloride Carbon Dioxide Anion Gap BUN Creatinine Est Cr Clr Drug Dosing Est GFR ( Amer) Est GFR (Non-Af Amer) BUN/Creatinine Ratio Glucose POC Glucose 107 H Lactate Calcium Phosphorus Magnesium Troponin I NT-Pro-B Natriuret Pep Blood Type Antibody Screen Medications Administered Current Inpatient Medications Acetaminophen (Acetaminophen 325 Mg Tab) 650 mg PO Q4H PRN PRN Reason: Pain or Fever Stop: 10/14/20 19:27 Duloxetine HCl (Duloxetine Hcl 30 Mg Cap) 30 mg PO [facility] Stop: 10/15/20 08:59 Last Admin: 09/16/20 08:06 Dose: 30 mg Documented by: Duloxetine HCl (Duloxetine Hcl 60 Mg Cap) 60 mg PO [facility] Stop: 10/15/20 08:59 Last Admin: 09/16/20 08:06 Dose: 60 mg Documented by: Heparin Sodium/Dextrose (Heparin Sodium/Dextrose) 25,000 units in 500 mls @ 24 mls/hr IV .[id number] [facility]; Protocol Stop: 10/15/20 17:14 Last Titration: 09/16/20 07:09 Dose: 1,200 units/hr, 24 mls/hr Documented by: Dexamethasone Sodium Phosphate (6 mg/ Syringe) 1.5 mls @ 1 mls/min IV DAILY [facility] Stop: 09/24/20 08:59 Ondansetron HCl (Ondansetron Inj 2 Mg/Ml 2 Ml Vial) 4 mg IV Q6H PRN PRN Reason: Nausea Stop: 10/14/20 19:27 Polyethylene Glycol (Polyethylene (Miralax) 17 Gm Pack) 17 gm PO DAILY PRN PRN Reason: Constipation Stop: 10/14/20 19:27 PG Care Time/CCT Total # of Minutes Spent Total Time Spent with Patient: Total time spent is greater than 50% in coordination of care (as documented) at patient's floor/unit and/or counseling patient: Coding Level of Care Code 61576 Subseq Hosp Care Lvl 3 Diagnoses Pulmonary embolism I26.02 Acute cor pulmonale presence: with acute cor pulmonale Chronicity: acute Pulmonary embolism type: saddle COVID-19 U07.1 Catheter-associated urinary tract infection T83.511A; N39.0 Encounter type: initial encounter Indwelling urinary catheter type: indwelling urethral catheter Sepsis A41.9 Acute respiratory failure with hypoxia J96.01 Acute kidney injury N17.9 PTSD (post-traumatic stress disorder) F43.10 DVT prophylaxis Z29.9 (1) Catheter-associated urinary tract infection Encounter type: initial encounter Indwelling urinary catheter type: indwelling urethral catheter Qualified Code(s): T83.511A - Infection and inflammatory reaction due to indwelling urethral catheter, initial encounter; N39.0 - Urinary tract infection, site not specified (2) Pulmonary embolism Acute cor pulmonale presence: with acute cor pulmonale Chronicity: acute Pulmonary embolism type: saddle Qualified Code(s): I26.02 - Saddle embolus of pulmonary artery with acute cor pulmonale
--- NOTE | 2020-09-16 10:02 | Critical Care Progress Note ---
Date of Service September 16, 2020 Assessment & Plan (1) Pulmonary embolism: Impression: 65-year-old incarcerated male with recent history of Covid presenting now with a large PE. The patient is status post mini dose systemic thrombolysis 24-hour events: The patient initially demonstrated hemodynamic stability but blood pressure decreased and lactate increased yesterday. BNP and troponin were also elevated which prompted a decision to proceed with half dose systemic thrombolysis. He received 50 mg of TPA after his PTT met guidelines per pharmacy. He has done well overnight. He has been able to be weaned off of supplemental oxygen. He has had no episodes of bleeding or hemoptysis. His blood pressure is improved. He is back on his heparin infusion. Recommendations: 1. PE with borderline hemodynamics status post half dose systemic thrombolysis: PE likely secondary to Covid infection. Would continue heparin. He needs to remain on heparin for total of 5days. Discussed with hospitalist transition for long-term anticoagulation. Would recommend 3 to 6 months of anticoagulation for DVT PE in the setting of Covid. Typically DOAC's are recommended however the patient is para 0 and apparently the only option is Coumadin. Can start Coumadin at this point time but would not discontinue heparin until Coumadin has been therapeutic for greater than 24hours and he has received a total of 5 days of IV heparin. 2. Lactic acidosis: His lactate is normal this morning. Opponent is also decreasing and does not further. 3. COVID-19 pneumonia: Patient is now on room air. Continue supportive care. Given the significant improvement, could argue for discontinuation of the dexamethasone at this point time. I suspect his hypoxemia may have been more likely related to the acute PE. 4. History of urinary tract infection: The patient's blood cultures have shown no growth to date. His white count is elevated although this could be secondary to his viral pneumonia and or the acute PE. Holding antibiotics for now. 5. Leukocytosis with anemia: Again suspect reactive. He does not demonstrate any significant evidence of acute blood blood loss or bleeding. No indication for transfusion. Continue to trend. 6. Chronic kidney disease: Serum creatinine is around baseline does have a chronic indwelling Gutierrez. Continue to trend. Electrolytes and acid-base status are stable. 7. Patient is deconditioned. Will request PT and OT evaluations to get him up and moving. The patient is eligible to downgrade out of the ICU at 2:00 this afternoon back to telemetry status. Discussed with the hospitalist. We are available to assist as needed with pulmonary issues but critical care service will sign off once he is transferred to telemetry status. (2) Acute respiratory failure with hypoxia: (3) COVID-19: Admission and Anticipated Discharge Date Admission Date: September 14, 2020 Subjective He is back on his heparin infusion. Patient seen and examined. Discussed with critical care nurse at bedside as well as patient and the hospitalist. The patient reports he is doing well. He received TPA yesterday afternoon. No bleeding complications. He is now been able to be weaned off of oxygen. He denies chest pain or palpitations or any syncope or presyncope. No cough or sputum production. No hemoptysis. He feels somewhat weak but overall is doing much better. Physical Exam Constitutional: WD/WN, vitals as above Neck: trachea midline, no thyromegaly Respiratory: normal respiratory effort, lungs clear to auscultation Cardiovascular: RRR, no murmur, no edema Gastrointestinal (Abdomen): normal bowel sounds, soft, nontender, no hepatosplenomegaly Musculoskeletal: Extremities: extremities normal to inspection Skin: no rashes, warm and dry Lymphatic: no cervical lymphadenopathy Results & Data Results & Data ([facility]) Vital Signs (Past 12 Hours) Vital Signs Temp Pulse Resp BP Pulse Ox 09/16/20 08:40 93 09/16/20 08:20 95 09/16/20 08:02 56 L 16 134/84 96 09/16/20 07:02 36.5 C 47 L 16 120/80 97 09/16/20 06:02 51 L 20 131/85 96 09/16/20 05:02 49 L 20 127/65 96 09/16/20 04:02 36.6 C 54 L 20 128/79 96 09/16/20 03:02 50 L 20 122/60 97 09/16/20 02:02 49 L 20 123/75 96 09/16/20 01:02 53 L 20 124/77 96 09/16/20 00:02 36.4 C L 56 L 20 104/78 96 09/15/20 23:02 57 L 18 120/75 96 09/15/20 22:02 60 20 124/74 98 Laboratory Results 09/16/20 05:32 09/16/20 05:32 Diagnostic Findings No new imaging Coding Level of Care Code 97839 Subseq Hosp Care Lvl 3 Diagnoses Pulmonary embolism I26.02 Acute cor pulmonale presence: with acute cor pulmonale Chronicity: acute Pulmonary embolism type: saddle Acute respiratory failure with hypoxia J96.01 COVID-19 U07.1 (1) Pulmonary embolism Acute cor pulmonale presence: with acute cor pulmonale Chronicity: acute Pu lmonary embolism type: saddle Qualified Code(s): I26.02 - Saddle embolus of pulmonary artery with acute cor pulmonale
[2020-09-16 12:32] LABS: Partial Thromboplastin Ratio 1.3; Partial Thromboplastin Time 37.3 Seconds (21.0-31.0)
[2020-09-16] MEDS ORDERED: HEPARIN IV BOLUS 3,000 UNITS in SYRINGE 0 ML IV ONE (14:15)
[2020-09-16] MEDS: HEPARIN SODIUM/DEXTROSE 25,000 UNITS/500 ML BAG IV SCH (14:29)
[2020-09-16 21:58] LABS: Partial Thromboplastin Ratio 1.8
[2020-09-16 22:01] LABS: Partial Thromboplastin Time 48.9 Seconds (21.0-31.0)
[2020-09-17] MEDS: DULoxetine HCL 30 MG CAP PO SCH (07:43)
[2020-09-17] MEDS: HEPARIN SODIUM/DEXTROSE 25,000 UNITS/500 ML BAG IV SCH (07:43)
[2020-09-17] MEDS: DULoxetine HCL 60 MG CAP PO SCH (07:43)
[2020-09-17 07:50] LABS: Hematocrit (blood only) 35.9 % (42-52); Hemoglobin 11.8 g/dL (14.0-18.0); Mean Corpuscular Hemoglobin 30.3 pg (25-34); Mean Corpuscular Hgb Conc 32.9 g/dL (32-36); Mean Corpuscular Volume 92.3 fL (80-100); Mean Platelet Volume 9.6 fL (7.4-10.4); Platelet Count 287 K/uL (130-400); RDW Coefficient of Variation 14.3 % (11.5-14.5); RDW Standard Deviation 48.2 fL (36.4-46.3); Red Blood Count 3.89 M/uL (4.7-6.1)
[2020-09-17 07:58] LABS: Partial Thromboplastin Time 54.8 Seconds (21.0-31.0)
[2020-09-17 08:10] LABS: BUN Creatinine Ratio 24.6 (10-20); Calcium 9.2 mg/dl (8.5-10.1); Creatinine Clr Calc Pharmacy 49.2 ml/min; Est GFR (Non-African American) 40.5; Potassium 4.1 mmol/L (3.5-5.1)
[2020-09-17] MEDS ORDERED: dexAMETHasone 6 MG in SYRINGE 0 ML IV SCH (09:00)
--- NOTE | 2020-09-17 11:47 | Pulmonology Progress Note ---
Date of Service September 17, 2020 Assessment & Plan (1) Pulmonary embolism: Impression: 65-year-old incarcerated male with recent history of Covid presenting now with a large PE. The patient is status post mini dose systemic thrombolysis. No issues with bleeding and transferred back to the medical service 09/16/2020 Recommendations: 1. PE with borderline hemodynamics status post half dose systemic thrombolysis: Appears to be doing well clinically. PE secondary to concomitant Covid infection. Would continue heparin. He needs to remain on heparin for total of 5days. Would recommend 3 to 6 months of anticoagulation for DVT PE in the setting of Covid. Typically DOAC's are recommended however the patient is para 0 and apparently the only option is Coumadin. Can start Coumadin at this point time but would not discontinue heparin until Coumadin has been therapeutic for greater than 24hours and he has received a total of 5 days of IV heparin. 2. Lactic acidosis: His lactate is normal this morning. Opponent is also decreasing and does not further. 3. COVID-19 pneumonia: Patient is now on room air. Continue supportive care. Given the significant improvement, I would recommend discontinuation of the dexamethasone at this point time. I suspect his hypoxemia may have been more likely related to the acute PE. 4. Echo was reviewed and demonstrates right ventricular strain as well as elevated pulmonary arterial pressures likely secondary to PE. Recommend follow- up echocardiogram in 3 months Patient is doing well clinically. Pulmonary will sign off at this point time. Please call us if we can be of additional assistance. Acute cor pulmonale presence: with acute cor pulmonale Chronicity: acute Pulmonary embolism type: saddle Qualified Code(s): I26.02 - Saddle embolus of pulmonary artery with acute cor pulmonale (2) Acute respiratory failure with hypoxia: (3) COVID-19: Admission and Anticipated Discharge Date Admission Date: September 14, 2020 Subjective Chart reviewed. And efforts to conserve PPE and prevent staff exposure, the patient was not seen and examined today. Please refer to the hospitalist note for full details. Review of Systems Review of Systems: Per hospitalist note Physical Exam Physical Exam: In an effort to conserve PPE and prevent staff exposure the patient was not examined. Please refer to the hospitalist note from today Results & Data Results & Data ([facility]) Vital Signs (Past 12 Hours) Vital Signs Temp Pulse Pulse Pulse Resp BP Pulse Ox 09/17/20 07:43 64 12/12/20 07:31 36.5 C 57 L 18 121/84 93 09/17/20 04:07 36.5 C 63 18 125/81 93 09/17/20 00:38 36.5 C 64 20 130/85 93 09/16/20 23:59 61 Laboratory Results 09/17/20 07:10 09/17/20 07:10 Diagnostic Findings Echocardiogram from 09/15/2020 demonstrated an EF of 60 to 65% with concentric LVH and septal flattening with a severely dilated right ventricle with reduced systolic function and global hypokinesis with severe tricuspid regurgitation and estimated right ventricular systolic pressure 57. PG Care Time/CCT Total # of Minutes Spent Total Time Spent with Patient: 20 minutes reviewing chart and coordinating care. Coding Level of Care Code 47352 Subseq Hosp Care Lvl 2 Diagnoses Pulmonary embolism I26.02 Acute cor pulmonale presence: with acute cor pulmonale Chronicity: acute Pulmonary embolism type: saddle Acute respiratory failure with hypoxia J96.01 COVID-19 U07.1
--- NOTE | 2020-09-17 14:29 | Hospitalist Progress Note ---
Date of Service September 17, 2020 Assessment & Plan (1) Pulmonary embolism: large, bilateral, saddle embolism BP in the 90's systolic on 09/15 BNP elevated, Echo with RV dilation and poor function discussed with Dr Crawford, decided to give him tPA 50mg on 09/15 at 1300 good response, after two hours BP went from 90's systolic to 120 systolic on room air for two days continue heparin drip, start Coumadin today 5mg daily will need to be here a few days on the heparin as INR becomes therapeutic downgrade to medical status today (2) COVID-19: Dexamethasone 6 mg IV daily started on admission Unclear onset of symptoms and diagnosis since Sep 03 therefore deferred remdesivir and convalescent plasma as symptoms more likely secondary to PE saturations stable on room air for two days eating well close monitoring hypoxia was more likely due to large central PE, will stop the dexamethasone, likely no benefit (3) Catheter-associated urinary tract infection: UA clean monitor off antibiotics was treated for 10 days with Cipro for prior infection likely the left flank pain is related to PE (4) Sepsis: doubt sepsis reviewing records feel that his symptoms most likely combination of large central PE and COVID procalcitonin negative UA is clean without signs of infection monitor off antibiotics at this time hypotension and elevated lactic acid more likely due to PE and hypoxia (5) Acute respiratory failure with hypoxia: due to PE (large, bilateral, saddle) breathing well on room air for two days responded well to tPA (6) Acute kidney injury: Hold lisinopril, BP is stable off it Cr is 1.7 this morning, making urine via fontana (chronic) repeat tomorrow (7) PTSD (post-traumatic stress disorder): Continue duloxetine 90 mg p.o. every morning (8) DVT prophylaxis: heparin drip Admission and Anticipated Discharge Date Admission Date: September 14, 2020 Subjective patient is doing well, no chest pain, no dyspnea, no fever eating well discussed with Dr. Crawford, he will sign off, should repeat echo in a few months start on Coumdadin today Review of Systems Review of Systems: All systems reviewed & are unremarkable except as noted in Subjective Physical Exam Constitutional: well developed and well nourished; no acute distress Neck: trachea midline, no thyromegaly Respiratory: normal respiratory effort; no respiratory distress and no cough Auscultation: no crackles, no rales, no rhonchi and no wheezes Cardiovascular: RRR, no murmur, no edema Gastrointestinal (Abdomen): normal bowel sounds, soft, nontender, no hepatosplenomegaly Musculoskeletal: no cyanosis or clubbing, extremities motor strength 5/5 Skin: no rashes, warm and dry Neurologic: patellar DTR's 2+ bilat, sensation intact and PERRL, EOMI, accommodation nl, no face palsy, no dysarthria Psychiatric: A+Ox3, euthymic affect Lymphatic: no cervical or axillary lymphadenopathy Results & Data Results & Data ([facility]) Vital Signs (Past 12 Hours) Vital Signs Temp Pulse Pulse Pulse Resp BP Pulse Ox 09/17/20 12:06 36.5 C 61 20 132/79 93 09/17/20 07:43 64 09/17/20 07:31 36.5 C 57 L 18 121/84 93 09/17/20 04:07 36.5 C 63 18 125/81 93 Laboratory Results Laboratory Results - last 24 hr 09/16/20 09/17/20 09/17/20 21:07 07:10 07:10 WBC 11.60 H RBC 3.89 L Hgb 11.8 L Hct 35.9 L MCV 92.3 MCH 30.3 MCHC 32.9 RDW Std Deviation 48.2 H RDW Coeff of Osmin 14.3 Plt Count 287 MPV 9.6 APTT 48.9 H* PTT Ratio 1.8 Sodium 139 Potassium 4.1 Chloride 110 H Carbon Dioxide 24 Anion Gap 5.0 BUN 43 H Creatinine 1.75 H Est Cr Clr Drug Dosing 49.2 Est GFR ( Amer) 47.0 Est GFR (Non-Af Amer) 40.5 BUN/Creatinine Ratio 24.6 H Glucose 96 Calcium 9.2 09/17/20 07:10 WBC RBC Hgb Hct MCV MCH MCHC RDW Std Deviation RDW Coeff of Osmin Plt Count MPV APTT 54.8 H* PTT Ratio 2.0 Sodium Potassium Chloride Carbon Dioxide Anion Gap BUN Creatinine Est Cr Clr Drug Dosing Est GFR ( Amer) Est GFR (Non-Af Amer) BUN/Creatinine Ratio Glucose Calcium Medications Administered Current Inpatient Medications Acetaminophen (Acetaminophen 325 Mg Tab) 650 mg PO Q4H PRN PRN Reason: Pain or Fever Stop: 10/14/20 19:27 Duloxetine HCl (Duloxetine Hcl 30 Mg Cap) 30 mg PO QAM [facility] Stop: 10/15/20 08:59 Last Admin: 09/17/20 07:43 Dose: 30 mg Documented by: Duloxetine HCl (Duloxetine Hcl 60 Mg Cap) [facility] Stop: 10/15/20 08:59 Last Admin: 09/17/20 07:43 Dose: 60 mg Documented by: Heparin Sodium/Dextrose (Heparin Sodium/Dextrose) 25,000 units in 500 mls @ 27 mls/hr IV .[id number] [facility]; Protocol Stop: 10/15/20 17:14 Last Admin: 09/17/20 07:43 Dose: 1,350 units/hr, 27 mls/hr Documented by: Dexamethasone Sodium Phosphate (6 mg/ Syringe) 1.5 mls @ 1 mls/min IV DAILY [facility] Stop: 09/24/20 08:59 Last Admin: 09/17/20 07:43 Dose: 1 mls/min Documented by: Ondansetron HCl (Ondansetron Inj 2 Mg/Ml 2 Ml Vial) 4 mg IV Q6H PRN PRN Reason: Nausea Stop: 10/14/20 19:27 Polyethylene Glycol (Polyethylene (Miralax) 17 Gm Pack) 17 gm PO DAILY PRN PRN Reason: Constipation Stop: 10/14/20 19:27 Warfarin Sodium (Warfarin Sod 5 Mg Tab) 5 mg PO DAILY@1600 [facility] Stop: 10/17/20 15:59 PG Care Time/CCT Total # of Minutes Spent Total Time Spent with Patient: Total time spent is greater than 50% in coordinat ion of care (as documented) at patient's floor/unit and/or counseling patient: Coding Level of Care Code 51190 Subseq Hosp Care Lvl 3 Diagnoses Pulmonary embolism I26.02 Acute cor pulmonale presence: with acute cor pulmonale Chronicity: acute Pulmonary embolism type: saddle COVID-19 U07.1 Catheter-associated urinary tract infection T83.511A; N39.0 Encounter type: initial encounter Indwelling urinary catheter type: indwelling urethral catheter Sepsis A41.9 Acute respiratory failure with hypoxia J96.01 Acute kidney injury N17.9 PTSD (post-traumatic stress disorder) F43.10 DVT prophylaxis Z29.9 (1) Pulmonary embolism Acute cor pulmonale presence: with acute cor pulmonale Chronicity: acute Pulmonary embolism type: saddle Qualified Code(s): I26.02 - Saddle embolus of pulmonary artery with acute cor pulmonale (2) Catheter-associated urinary tract infection Encounter type: initial encounter Indwelling urinary catheter type: indwelling urethral catheter Qualified Code(s): T83.511A - Infection and inflammatory reaction due to indwelling urethral catheter, initial encounter; N39.0 - Urinary tract infection, site not specified
[2020-09-17] MEDS ORDERED: WARFARIN SOD 5 MG TAB PO SCH (16:00)
[2020-09-18] MEDS: HEPARIN SODIUM/DEXTROSE 25,000 UNITS/500 ML BAG IV SCH ×2 (02:28→21:06)
[2020-09-18 08:06] LABS: Hematocrit (blood only) 35.7 % (42-52); Hemoglobin 11.7 g/dL (14.0-18.0); Mean Corpuscular Hemoglobin 30.2 pg (25-34); Mean Corpuscular Hgb Conc 32.8 g/dL (32-36); Mean Corpuscular Volume 92.2 fL (80-100); Mean Platelet Volume 9.6 fL (7.4-10.4); Platelet Count 323 K/uL (130-400); RDW Coefficient of Variation 14.2 % (11.5-14.5); RDW Standard Deviation 47.5 fL (36.4-46.3); Red Blood Count 3.87 M/uL (4.7-6.1)
[2020-09-18] MEDS: DULoxetine HCL 60 MG CAP PO SCH (08:18)
[2020-09-18] MEDS: DULoxetine HCL 30 MG CAP PO SCH (08:18)
[2020-09-18 08:19] LABS: INR 1.1 (0.9-1.1); Prothrombin Time 11.4 Seconds (9.0-12.0)
[2020-09-18 08:25] LABS: BUN Creatinine Ratio 23.8 (10-20); Calcium 9.6 mg/dl (8.5-10.1); Creatinine Clr Calc Pharmacy 57.7 ml/min; Est GFR (Non-African American) 50.1; Potassium 4.4 mmol/L (3.5-5.1)
[2020-09-18 08:42] LABS: Partial Thromboplastin Time 54.8 Seconds (21.0-31.0)
--- NOTE | 2020-09-18 08:57 | Hospitalist Progress Note ---
Date of Service September 18, 2020 Assessment & Plan (1) Pulmonary embolism: large, bilateral, saddle embolism BP in the 90's systolic on 09/15 BNP elevated, Echo with RV dilation and poor function discussed with Dr Crawford, decided to give him tPA 50mg on 09/15 at 1300 good response, after two hours BP went from 90's systolic to 120 systolic on room air for three days continue heparin drip, started Coumadin 5mg on 09/17, INR is 1.1 today, will give 10mg Coumadin today and repeat INR tomorrow will need to be here a few days on the heparin as INR becomes therapeutic downgrade to medical status (2) COVID-19: Dexamethasone 6 mg IV daily started on admission Unclear onset of symptoms and diagnosis since Sep 03 therefore deferred remdesivir and convalescent plasma as symptoms more likely secondary to PE saturations stable on room air for three days eating well close monitoring hypoxia was more likely due to large central PE, will stop the dexamethasone, likely no benefit (3) Catheter-associated urinary tract infection: UA clean monitor off antibiotics was treated for 10 days with Cipro for prior infection likely the left flank pain is related to PE (4) Sepsis: doubt sepsis reviewing records feel that his symptoms most likely combination of large central PE and COVID procalcitonin negative UA is clean without signs of infection monitor off antibiotics at this time hypotension and elevated lactic acid more likely due to PE and hypoxia (5) Acute respiratory failure with hypoxia: due to PE (large, bilateral, saddle) breathing well on room air for three days responded well to tPA (6) Acute kidney injury: Hold lisinopril, BP is stable off it Cr is 1.4 this morning, making urine via fontana (chronic) NEEMA resolved (7) PTSD (post-traumatic stress disorder): Continue duloxetine 90 mg p.o. every morning (8) DVT prophylaxis: heparin drip Admission and Anticipated Discharge Date Admission Date: September 14, 2020 Subjective patient feeling well, no issues overnight eating well, breathing well, no fever/chills, no chest pain INR is 1.1 after Coumadin 5mg, will give 10mg today and repeat INR tomorrow explained that due to size of PE, saddle embolism he will need to be here on heparin until INR > 2 and should ideally have bridge of at least 24 hours reviewed labs Review of Systems Review of Systems: All systems reviewed & are unremarkable except as noted in Subjective Physical Exam Constitutional: well developed and well nourished; no acute distress Neck: trachea midline, no thyromegaly Respiratory: normal respiratory effort; no respiratory distress and no cough Auscultation: no crackles, no rales, no rhonchi and no wheezes Cardiovascular: RRR, no murmur, no edema Gastrointestinal (Abdomen): normal bowel sounds, soft, nontender, no hepatosplenomegaly Musculoskeletal: no cyanosis or clubbing, extremities motor strength 5/5 Skin: no rashes, warm and dry Neurologic: patellar DTR's 2+ bilat, sensation intact and PERRL, EOMI, accommodation nl, no face palsy, no dysarthria Psychiatric: A+Ox3, euthymic affect Lymphatic: no cervical or axillary lymphadenopathy Results & Data Results & Data ([facility]) Vital Signs (Past 12 Hours) Vital Signs Temp Pulse Resp BP BP Pulse Ox 09/18/20 07:52 36.6 C 60 18 130/83 95 09/17/20 22:30 36.6 C 52 L 16 144/86 H 94 Laboratory Results Laboratory Results - last 24 hr 09/18/20 09/18/20 09/18/20 05:38 05:38 05:38 WBC 10.10 RBC 3.87 L Hgb 11.7 L Hct 35.7 L MCV 92.2 MCH 30.2 MCHC 32.8 RDW Std Deviation 47.5 H RDW Coeff of Osmin 14.2 Plt Count 323 MPV 9.6 PT 11.4 INR 1.1 APTT PTT Ratio Sodium 139 Potassium 4.4 Chloride 108 H Carbon Dioxide 24 Anion Gap 7.0 BUN 35 H Creatinine 1.47 H Est Cr Clr Drug Dosing 57.7 Est GFR ( Amer) 58.0 Est GFR (Non-Af Amer) 50.1 BUN/Creatinine Ratio 23.8 H Glucose 87 Calcium 9.6 09/18/20 05:38 WBC RBC Hgb Hct MCV MCH MCHC RDW Std Deviation RDW Coeff of Osmin Plt Count MPV PT INR APTT 54.8 H* PTT Ratio 2.0 Sodium Potassium Chloride Carbon Dioxide Anion Gap BUN Creatinine Est Cr Clr Drug Dosing Est GFR ( Amer) Est GFR (Non-Af Amer) BUN/Creatinine Ratio Glucose Calcium Medications Administered Current Inpatient Medications Acetaminophen (Acetaminophen 325 Mg Tab) 650 mg PO Q4H PRN PRN Reason: Pain or Fever Stop: 10/14/20 19:27 Duloxetine HCl (Duloxetine Hcl 30 Mg Cap) 30 mg PO [facility] Stop: 10/15/20 08:59 Last Admin: 09/18/20 08:18 Dose: 30 mg Documented by: Duloxetine HCl (Duloxetine Hcl 60 Mg Cap) [facility] [place]: 10/15/20 08:59 Last Admin: 09/18/20 08:18 Dose: 60 mg Documented by: Heparin Sodium/Dextrose (Heparin Sodium/Dextrose) 25,000 units in 500 mls @ 27 mls/hr IV .[id number] [facility]; Protocol Stop: 10/15/20 17:14 Last Titration: 09/18/20 07:02 Dose: 1,350 units/hr, 27 mls/hr Documented by: Ondansetron HCl (Ondansetron Inj 2 Mg/Ml 2 Ml Vial) 4 mg IV Q6H PRN PRN Reason: Nausea Stop: 10/14/20 19:27 Polyethylene Glycol (Polyethylene (Miralax) 17 Gm Pack) 17 gm PO DAILY PRN PRN Reason: Constipation Stop: 10/14/20 19:27 Warfarin Sodium (Warfarin Sod 10 Mg Tab) 10 mg PO DAILY@1600 [facility] Stop: 10/18/20 15:59 PG Care Time/CCT Total # of Minutes Spent Total Time Spent with Patient: Total time spent is greater than 50% in coordination of care (as documented) at patient's floor/unit and/or counseling patient: Coding Level of Care Code 37034 Subseq Hosp Care Lvl 2 Diagnoses Pulmonary embolism I26.02 Acute cor pulmonale presence: with acute cor pulmonale Chronicity: acute Pulmonary embolism type: saddle COVID-19 U07.1 Catheter-associated urinary tract infection T83.511A; N39.0 Encounter type: initial encounter Indwelling urinary catheter type: indwelling urethral catheter Sepsis A41.9 Acute respiratory failure with hypoxia J96.01 Acute kidney injury N17.9 PTSD (post-traumatic stress disorder) F43.10 DVT prophylaxis Z29.9 (1) Pulmonary embolism Acute cor pulmonale presence: with acute cor pulmonale Chronicity: acute Pulmonary embolism type: saddle Qualified Code(s): I26.02 - Saddle embolus of pulmonary artery with acute cor pulmonale (2) Catheter-associated urinary tract infection Encounter type: initial encounter Indwelling urinary catheter type: indwelling urethral catheter Qualified Code(s): T83.511A - Infection and inflammatory reaction due to indwelling urethral catheter, initial encounter; N39.0 - Urinary tract infection, site not specified
[2020-09-18] MEDS: WARFARIN SOD 10 MG TAB PO SCH (17:06)
[2020-09-19 07:51] LABS: INR 1.1 (0.9-1.1); Prothrombin Time 11.8 Seconds (9.0-12.0)
[2020-09-19 09:14] LABS: Partial Thromboplastin Ratio 1.9
[2020-09-19 09:15] LABS: Partial Thromboplastin Time 53.2 Seconds (21.0-31.0)
[2020-09-19] MEDS: DULoxetine HCL 60 MG CAP PO SCH (11:12)
[2020-09-19] MEDS: DULoxetine HCL 30 MG CAP PO SCH (11:12)
[2020-09-19] MEDS: HEPARIN SODIUM/DEXTROSE 25,000 UNITS/500 ML BAG IV SCH (15:12)
[2020-09-19] MEDS: WARFARIN SOD 10 MG TAB PO SCH (16:44)
--- NOTE | 2020-09-19 17:39 | Hospitalist Progress Note ---
Date of Service September 19, 2020 Assessment & Plan (1) Pulmonary embolism: large, bilateral, saddle embolism BP in the 90's systolic on 09/15 BNP elevated, Echo with RV dilation and poor function discussed with Dr Crawfrod, decided to give him tPA 50mg on 09/15 at 1300 good response, after two hours BP went from 90's systolic to 120 systolic on room air now for many days continue heparin drip until INR therapeutic; started Coumadin 5mg on 09/17,then received 10mg daily on 09/18 and 09/19 INR 1.1 today will need to be here a few days on the heparin as INR becomes therapeutic (2) COVID-19: Dexamethasone 6 mg IV daily started on admission Unclear onset of symptoms and diagnosis since Sep 03 therefore deferred remdesivir and convalescent plasma as symptoms more likely secondary to PE saturations stable on room air for three days eating well close monitoring hypoxia was more likely due to large central PE, have since dcd the dexamethasone, likely no benefit (3) Catheter-associated urinary tract infection: UA clean monitor off antibiotics was treated for 10 days with Cipro for prior infection likely the left flank pain is related to PE (4) Sepsis: doubt sepsis reviewing records feel that his symptoms most likely combination of large central PE and COVID procalcitonin negative UA is clean without signs of infection monitor off antibiotics at this time hypotension and elevated lactic acid more likely due to PE and hypoxia (5) Acute respiratory failure with hypoxia: due to PE (large, bilateral, saddle) breathing well on room air for many days responded well to tPA (6) Acute kidney injury: continue to hold lisinopril, BP is stable off it Cr is 1.4last check, making urine via fontana (chronic) NEEMA resolved (7) PTSD (post-traumatic stress disorder): Continue duloxetine 90 mg p.o. every morning (8) DVT prophylaxis: heparin drip, coumadin Dispo-continued stay awaiting therapeutic INR, but could consider Lovenox bridge upon discharge if fdc can support this Admission and Anticipated Discharge Date Admission Date: September 14, 2020 Subjective Pt feleing well, no complaints. Denies CP/SOB. Is eating and drinking, moving bowels, making urine. OOB to bathroom without problems. no issues with bleeding Review of Systems Review of Systems: All systems reviewed & are unremarkable except as noted in HPI & below Physical Exam Constitutional: WD/WN, vitals as above Eyes: + anicteric sclerae Neck: trachea midline, no thyromegaly Respiratory: normal respiratory effort, lungs clear to auscultation Cardiovascular: RRR, no murmur, no edema Chest (Breasts): Chest: normal inspection of chest Gastrointestinal (Abdomen): normal bowel sounds, soft, nontender, no hepatosplenomegaly Musculoskeletal: Extremities: extremities normal to inspection; no cyanosis and no clubbing Skin: no rashes, warm and dry Neurologic: moves all extremities and awake; no focal motor deficits Psychiatric: A+Ox3, euthymic affect Lymphatic: no lymphedema Results & Data Results & Data ([facility]) Vital Signs (Past 12 Hours) Vital Signs Temp Pulse Resp BP Pulse Ox 09/19/20 15:44 36.7 C 96 H 20 113/76 92 09/19/20 07:35 36.5 C 64 16 111/78 95 Laboratory Results 09/19/20 Range/Units 06:47 PT 11.8 (9.0-12.0) Seconds INR 1.1 (0.9-1.1) APTT 53.2 H* (21.0-31.0) Seconds PTT Ratio 1.9 PG Care Time/CCT Total # of Minutes Spent Total Time Spent with Patient: Total time spent is greater than 50% in coordination of care (as documented) at patient's floor/unit and/or counseling patient: Coding Level of Care Code 94578 Subseq Hosp Care Lvl 2 Diagnoses Pulmonary embolism I26.02 Acute cor pulmonale presence: with acute cor pulmonale Chronicity: acute Pulmonary embolism type: saddle COVID-19 U07.1 Catheter-associated urinary tract infection T83.511A; N39.0 Encounter type: initial encounter Indwelling urinary catheter type: indwelling urethral catheter Sepsis A41.9 Acute respiratory failure with hypoxia J96.01 Acute kidney injury N17.9 PTSD (post-traumatic stress disorder) F43.10 DVT prophylaxis Z29.9 (1) Pulmonary embolism Acute cor pulmonale presence: with acute cor pulmonale Chronicity: acute Pulmonary embolism type: saddle Qualified Code(s): I26.02 - Saddle embolus of pulmonary artery with acute cor pulmonale (2) Catheter-associated urinary tract infection Encounter type: initial encounter Indwelling urinary catheter type: indwelling urethral catheter Qualified Code(s): T83.511A - Infection and inflammatory reaction due to indwelling urethral catheter, initial encounter; N39.0 - Urinary tract infection, site not specified
[2020-09-20 08:31] LABS: Basophils # (auto) 0.01 K/uL (0-0.2); Basophils % (auto) 0.1 %; Eosinophils # (auto) 0.26 K/uL (0-0.5); Eosinophils % (auto) 3.5 %; Hematocrit (blood only) 41.7 % (42-52); Hemoglobin 13.9 g/dL (14.0-18.0); Immature Granulocytes # (auto) 0.12 K/uL (0.00-0.02); Immature Granulocytes % (auto) 1.6 %; Lymphocytes # (auto) 1.94 K/uL (1.2-3.4); Lymphocytes % (auto) 26.1 %; Mean Corpuscular Hgb Conc 33.3 g/dL (32-36); Mean Corpuscular Volume 92.9 fL (80-100); Mean Platelet Volume 9.6 fL (7.4-10.4); Monocytes % (auto) 10.8 %; Neutrophils # (auto) 4.29 K/uL (1.4-6.5); Neutrophils % (auto) 57.9 %; Platelet Count 362 K/uL (130-400); RDW Coefficient of Variation 15.1 % (11.5-14.5); RDW Standard Deviation 49.2 fL (36.4-46.3); Red Blood Count 4.49 M/uL (4.7-6.1); White Blood Count 7.42 K/uL (4.8-10.8)
[2020-09-20] MEDS: DULoxetine HCL 60 MG CAP PO SCH (08:51)
[2020-09-20] MEDS: DULoxetine HCL 30 MG CAP PO SCH (08:51)
[2020-09-20 08:52] LABS: INR 1.7 (0.9-1.1); Partial Thromboplastin Ratio 3.1; Prothrombin Time 17.8 Seconds (9.0-12.0)
[2020-09-20 08:55] LABS: BUN Creatinine Ratio 21.7 (10-20); Creatinine Clr Calc Pharmacy 47.7 ml/min; Est GFR (Non-African American) 39.7; Potassium 4.7 mmol/L (3.5-5.1)
[2020-09-20 09:28] LABS: Partial Thromboplastin Time 86.8 Seconds (21.0-31.0)
[2020-09-20] MEDS: HEPARIN SODIUM/DEXTROSE 25,000 UNITS/500 ML BAG IV SCH (10:35)
[2020-09-20] MEDS: WARFARIN SOD 10 MG TAB PO SCH (16:46)
[2020-09-20 17:15] LABS: Partial Thromboplastin Ratio 2.4
[2020-09-20 17:24] LABS: Partial Thromboplastin Time 66.2 Seconds (21.0-31.0)
[2020-09-20] MEDS: WARFARIN SOD 5 MG TAB PO SCH (17:38)
--- NOTE | 2020-09-20 20:18 | Hospitalist Progress Note ---
Date of Service September 20, 2020 Assessment & Plan (1) Pulmonary embolism: large, bilateral, saddle embolism BP in the 90's systolic on 09/15 BNP elevated, Echo with RV dilation and poor function discussed with Dr Crawford, decided to give him tPA 50mg on 09/15 at 1300 good response, after two hours BP went from 90's systolic to 120 systolic on room air now for many days continue heparin drip until INR therapeutic; started Coumadin 5mg on 09/17,then received 10mg daily on 09/18 and 09/19 INR now up to 1.7 today Decrease coumadin to 5mg daily hopefully INR therapeutic tomorrow and can dc heparin and discharge (2) COVID-19: Dexamethasone 6 mg IV daily started on admission but has since been discontinued Unclear onset of symptoms and diagnosis since Sep 03 therefore deferred remdesivir and convalescent plasma as symptoms Hypoxia more likely secondary to PE saturations stable on room air for many days eating well close monitoring-doing well (3) Catheter-associated urinary tract infection: UA clean monitor off antibiotics was treated for 10 days with Cipro for prior infection likely the left flank pain is related to PE (4) Sepsis: doubt sepsis reviewing records feel that his symptoms most likely combination of large central PE and COVID procalcitonin negative UA is clean without signs of infection monitor off antibiotics at this time hypotension and elevated lactic acid more likely due to PE and hypoxia (5) Acute respiratory failure with hypoxia: due to PE (large, bilateral, saddle) breathing well on room air for many days responded well to tPA (6) Acute kidney injury: Was improved, now loftsman back up to 1.7 -encouraged po fluid intake is making urine continue to hold lisinopril, BP is stable off it no Gutierrez in place follow BMP (7) PTSD (post-traumatic stress disorder): Continue duloxetine 90 mg p.o. every morning (8) DVT prophylaxis: heparin drip, coumadin Dispo-continued stay awaiting therapeutic INR, hopeful for discharge tomorrow Admission and Anticipated Discharge Date Admission Date: September 14, 2020 Subjective Pt feels well, has no complaints at all. Is eating well, no N/V/D/constipation. Denies CP/SOB No bleeding Review of Systems Review of Systems: All systems reviewed & are unremarkable except as noted in HPI & below Physical Exam Constitutional: WD/WN, vitals as above Eyes: + anicteric sclerae Neck: trachea midline, no thyromegaly Respiratory: normal respiratory effort, lungs clear to auscultation Cardiovascular: RRR, no murmur, no edema Chest (Breasts): Chest: normal inspection of chest Gastrointestinal (Abdomen): normal bowel sounds, soft, nontender, no hepatosplenomegaly Musculoskeletal: Extremities: extremities normal to inspection; no cyanosis and no clubbing Skin: no rashes, warm and dry Neurologic: moves all extremities and awake; no focal motor deficits Lymphatic: no lymphedema Results & Data Results & Data ([facility]) Vital Signs (Past 12 Hours) Vital Signs Temp Pulse Resp BP Pulse Ox 09/20/20 15:32 36.6 C 88 16 116/77 93 Laboratory Results 09/20/20 09/20/20 09/20/20 Range/Units 16:33 07:24 07:24 WBC 7.42 (4.8-10.8) K/uL RBC 4.49 L (4.7-6.1) M/uL Hgb 13.9 L (14.0-18.0) g/dL Hct 41.7 L (42-52) % MCV 92.9 (80-100) fL MCH 31.0 (25-34) pg MCHC 33.3 (32-36) g/dL RDW Std Deviation 49.2 H (36.4-46.3) fL RDW Coeff of Osmin 15.1 H (11.5-14.5) % Plt Count 362 (130-400) K/uL MPV 9.6 (7.4-10.4) fL Immature Gran % (Auto) 1.6 % Neut % (Auto) 57.9 % Lymph % (Auto) 26.1 % [place] % (Auto) 10.8 % Eos % (Auto) 3.5 % Baso % (Auto) 0.1 % Neut # (Auto) 4.29 (1.4-6.5) K/uL Lymph # (Auto) 1.94 (1.2-3.4) K/uL [place] # (Auto) 0.80 H (0.11-0.59) K/uL Eos # (Auto) 0.26 (0-0.5) K/uL Baso # (Auto) 0.01 (0-0.2) K/uL Immature Gran # (Auto) 0.12 H (0.00-0.02) K/uL PT (9.0-12.0) Seconds INR (0.9-1.1) APTT 66.2 H* (21.0-31.0) Seconds PTT Ratio 2.4 Sodium 138 (136-145) mmol/L Potassium 4.7 (3.5-5.1) mmol/L Chloride 107 (98-107) mmol/L Carbon Dioxide 23 (21-32) mmol/L Anion Gap 8.0 (3-11) BUN 39 H (7-18) mg/dl Creatinine 1.78 H (0.6-1.4) mg/dl Est Cr Clr Drug Dosing 47.7 ml/min Est GFR ( Amer) 46.0 Est GFR (Non-Af Amer) 39.7 BUN/Creatinine Ratio 21.7 H (10-20) Glucose 90 (70-99) mg/dl Calcium 10.0 (8.5-10.1) mg/dl 09/20/20 Range/Units 07:24 WBC (4.8-10.8) K/uL RBC (4.7-6.1) M/uL Hgb (14.0-18.0) g/dL Hct (42-52) % MCV (80-100) fL MCH (25-34) pg MCHC (32-36) g/dL RDW Std Deviation (36.4-46.3) fL RDW Coeff of Osmin (11.5-14.5) % Plt Count (130-400) K/uL MPV (7.4-10.4) fL Immature Gran % (Auto) % Neut % (Auto) % Lymph % (Auto) % [place] % (Auto) % Eos % (Auto) % Baso % (Auto) % Neut # (Auto) (1.4-6.5) K/uL Lymph # (Auto) (1.2-3.4) K/uL [place] # (Auto) (0.11-0.59) K/uL Eos # (Auto) (0-0.5) K/uL Baso # (Auto) (0-0.2) K/uL Immature Gran # (Auto) (0.00-0.02) K/uL PT 17.8 H (9.0-12.0) Seconds INR 1.7 H (0.9-1.1) APTT 86.8 H* (21.0-31.0) Seconds PTT Ratio 3.1 Sodium (136-145) mmol/L Potassium (3.5-5.1) mmol/L Chloride (98-107) mmol/L Carbon Dioxide (21-32) mmol/L Anion Gap (3-11) BUN (7-18) mg/dl Creatinine (0.6-1.4) mg/dl Est Cr Clr Drug Dosing ml/min Est GFR ( Amer) Est GFR (Non-Af Amer) BUN/Creatinine Ratio (10-20) Glucose (70-99) mg/dl Calcium (8.5-10.1) mg/dl PG Care Time/CCT Total # of Minutes Spent Total Time Spent with Patient: Total time spent is greater than 50% in coordination of care (as documented) at patient's floor/unit and/or counseling patient: Coding Level of Care Code 78271 Subseq Hosp Care Lvl 2 Diagnoses Pulmonary embolism I26.02 Acute cor pulmonale presence: with acute cor pulmonale Chronicity: acute Pulmonary embolism type: saddle COVID-19 U07.1 Catheter-associated urinary tract infection T83.511A; N39.0 Encounter type: initial encounter Indwelling urinary catheter type: indwelling urethral catheter Sepsis A41.9 Acute respiratory failure with hypoxia J96.01 Acute kidney injury N17.9 PTSD (post-traumatic stress disorder) F43.10 DVT prophylaxis Z29.9 (1) Pulmonary embolism Acute cor pulmonale presence: with acute cor pulmonale Chronicity: acute Pulmonary embolism type: saddle Qualified Code(s): I26.02 - Saddle embolus of pulmonary artery with acute cor pulmonale (2) Catheter-associated urinary tract infection Encounter type: initial encounter Indwelling urinary catheter type: indwelling urethral catheter Qualified Code(s): T83.511A - Infection and inflammatory reaction due to indwelling urethral catheter, initial encounter; N39.0 - Urinary tract infection, site not specified
[2020-09-21] MEDS: HEPARIN SODIUM/DEXTROSE 25,000 UNITS/500 ML BAG IV SCH (07:22)
[2020-09-21 08:30] LABS: INR 2.3 (0.9-1.1); Prothrombin Time 23.2 Seconds (9.0-12.0)
[2020-09-21 08:56] LABS: BUN Creatinine Ratio 20.4 (10-20); Calcium 9.9 mg/dl (8.5-10.1); Creatinine Clr Calc Pharmacy 44.9 ml/min; Est GFR (African American) 42.8; Est GFR (Non-African American) 36.9; Potassium 4.6 mmol/L (3.5-5.1)
[2020-09-21] MEDS: DULoxetine HCL 60 MG CAP PO SCH (09:05)
[2020-09-21] MEDS: DULoxetine HCL 30 MG CAP PO SCH (09:05)
[2020-09-21 09:17] LABS: Partial Thromboplastin Ratio 3.1
[2020-09-21 09:25] LABS: Partial Thromboplastin Time 86.8 Seconds (21.0-31.0)
--- NOTE | 2020-09-21 11:00 | Discharge Summary ---
Date of Service September 21, 2020 Admission HPI Per Admitting Provider Erich Hemphill is a 65 year old male from [facility] with known recent COVID-19 diagnosis (diagnosed 09/03) who presents to the ER after a fall and being found hypotensive, tachycardia and hypoxic. Main acute symptom he reports left flank pain, ongoing for 2-3 days, worse on inspiration and palpation (however similar pain was noted during ER visit on Sep 03). Otherwise he reports his symptoms have been going on for the last month including non-productive cough, fever, chills, myalgias. He was seen in the ER on September 03 for left flank pain. At that time he was diagnosed with a catheter associated UTI treated with ciprofloxacin. He has a chronic indwelling curry catheter, last changed on (6 days ago). In the ER he underwent chest x-ray concerning for multifocal pneumonia with known COVID-19. He was treated with ceftriaxone to cover his catheter associated UTI and dexamethasone to treat COVID-19. He was started on BiPAP for acute hypoxic respiratory failure however no CO2 retention on VBG. He was referred to medicine for ongoing admission and management of COVID-19 pneumonia with acute hypoxic respiratory failure. Principal Diagnosis Saddle pulmonary embolus, Acute respiratory failure with hypoxia Discharge Exam Constitutional WD/WN, vitals as above Eyes + anicteric sclerae Neck trachea midline, no thyromegaly Respiratory normal respiratory effort, lungs clear to auscultation Cardiovascular RRR, no murmur, no edema Chest (Breasts) Chest: normal inspection of chest Gastrointestinal (Abdomen) normal bowel sounds, soft, nontender, no hepatosplenomegaly Musculoskeletal Extremities: extremities normal to inspection; no cyanosis and no clubbing Skin no rashes, warm and dry Neurologic moves all extremities and awake; no focal motor deficits Psychiatric A+Ox3, euthymic affect Lymphatic no lymphedema Discharge Data Allergies Allergy/AdvReac Type Severity Reaction Status Date / Time WOOL Allergy Unknown Unknown Uncoded 09/14/20 14:10 Consultations 09/14/20 13:59 ED Decision to Admit Stat 09/15/20 09:05 Consult Pulmonology Routine Ordered Studies 09/14/20 15:16 CT angio chest PE protocol Stat CXR KUB Hospital Course (1) Pulmonary embolism: large, bilateral, saddle embolism BP in the 90's systolic on 09/15 BNP elevated, Echo with RV dilation and poor function discussed with Dr Crawford of Critical Care, decided to give him tPA 50mg on 09/15 at 1300 good response, after two hours BP went from 90's systolic to 120 systolic on room air now for many days, not tachycardic, no bleeding issues Received heparin drip until INR therapeutic Continue coumadin 5mg daily and check INR q3 days until persistently therapeutic between 2.0-3.0 Was INR 2.3 on day of discharge (2) COVID-19: Dexamethasone 6 mg IV daily started on admission but has since been discontinued Unclear onset of symptoms and diagnosis since Sep 03 therefore deferred remdesivir and convalescent plasma as symptoms Hypoxia more likely secondary to PE saturations stable on room air for many days eating well close monitoring-doing well (3) Catheter-associated urinary tract infection: UA clean monitor off antibiotics was treated for 10 days with Cipro for prior infection likely the left flank pain is related to PE Curry catheter replaced on 09/21 (4) Sepsis: doubt sepsis reviewing records feel that his symptoms most likely combination of large central PE and COVID procalcitonin negative UA is clean without signs of infection monitor off antibiotics at this time hypotension and elevated lactic acid more likely due to PE and hypoxia (5) Acute respiratory failure with hypoxia: due to PE (large, bilateral, saddle) breathing well on room air for many days responded well to tPA (6) Acute kidney injury: Was improved, now home health scheduler back up to 1.8 due to urinary retention after Curry removed for a few days -encouraged po fluid intake is making urine continue to hold lisinopril, BP is stable off it replaced Curry check BMP at [facility] in 3 days to ensure renal function improving f/u with Urology as outpt (7) PTSD (post-traumatic stress disorder): Continue duloxetine 90 mg p.o. every morning (8) DVT prophylaxis: heparin drip, coumadin Dispo-dc to [facility], discussed his care with charge nurse at intermediate who is able to accept him back Total Time Total Time Spent Total Time Spent (In Minutes): 35 min Total Time Includes: Examination of the Patient, Discharge Planning, Medication Reconciliation and Communication With Other Providers Discharge Plan Discharge Items [facility] Disposition: [facility] Reason For Visit: Sepsis, COVID-19, acute hypoxic respiratory failur Discharge Diagnosis: Pulmonary embolism, COVID-19 Condition on Discharge: Good Activity: As commented below Bathing: No limitations Exercise/Sports: Gradually increase as tolerated Weightbearing: Full weightbearing Non-emergency contact: Primary Care Provider and Urologist Call non-emergency contact if: you have any medication questions, your symptoms worsen and you have a fever Follow-up/Referrals: Dvein Genao MD [Physician] - (Follow up within 1 month for urinary retention) Devin PAEZ [Primary Care Provider] - Diet: Carb Consistent or DM2 and Heart Healthy Addtl Attending Provider Instructions: You were diagnosed with a large saddle embolus (blood clot) and started on coumadin after receiving heparin therapy and tPA. You will need to stay on coumadin therapy for at least 6 months. You also had COVID-19 but had no significant problems with this. You had your Curry catheter removed but then replaced again for persistent urinary retention and your kidney function started to decline again. Please follow PT/INR every 3 days until consistently therapeutic. Follow BMP for renal function also in 3 days. Pending Studies at Discharge: No Stand-Alone Forms: My [facility] Skilled Items Patient informed of condition?: Yes Discharge Level of Care: Other Communicable Disease: Yes Discharge Prognosis: Improving Lines: None Urinary Catheter: Yes Medications and DC Order Prescriptions: New warfarin 5 mg Tablet 5 mg PO DAILY@1600 Qty: 30 RF: 0 Continued duloxetine 30 mg Capsule,Delayed Release(Dr/Ec) 30 mg PO QAM RF: 0 duloxetine 60 mg Capsule,Delayed Release(Dr/Ec) 60 mg PO QAM RF: 0 finasteride 5 mg Tablet 5 mg PO DAILY RF: 0 Discontinued ciprofloxacin HCl 500 mg tablet 500 mg PO BID Qty: 14 RF: 0 lisinopril 10 mg Tablet 10 mg PO DAILY RF: 0 Discharge Orders: Discharge Order (Routine); Ordered 09/21/20 Ordered By: Batsheva Najera Admission Data Admit Date/Time: 09/14/20 15:22 Attending Provider: Batsheva Najera Admit Provider: Deric Bentley Primary Care Provider: Devin PAEZ Other Providers: Deric Bentley ; Barrie Crawford Coding Level of Care Code D/C Day Management >30 mins Diagnoses Pulmonary embolism I26.02 Acute cor pulmonale presence: with acute cor pulmonale Chronicity: acute Pulmonary embolism type: saddle COVID-19 U07.1 Catheter-associated urinary tract infection T83.511A; N39.0 Encounter type: initial encounter Indwelling urinary catheter type: indwelling urethral catheter Sepsis A41.9 Acute respiratory failure with hypoxia J96.01 Acute kidney injury N17.9 PTSD (post-traumatic stress disorder) F43.10 DVT prophylaxis Z29.9
[2020-09-21] MEDS: WARFARIN SOD 5 MG TAB PO SCH (15:26)
--- NOTE | 2020-09-23 09:46 | Coding Query ---
CODING QUERY To promote full compliance with coding requirements relating to patient care, provider participation is requested in all cases of orthopedic coder uncertainty. Please assist us with the question(s) below: Coding Question(s): Sepsis is documented throughout the account but also "doubt Sepsis" is documented. Please clarify below: ( ) Patient has (possible) Sepsis (x ) Sepsis Ruled Out ( ) Other Please Explain: Thank you Oneal Gallardo Principal Diagnosis: "that condition established after study, to be chiefly responsible for occasioning the admission of the patient to the hospital for care." Co-Existing Principal Diagnosis: "when two or more diagnoses equally meet the criteria for principal diagnosis as determined by the circumstances of admission, diagnostic work up, and/or therapy provided, and the Alphabetic Index, Tabular List, or another coding guideline does not provide sequencing direction, any one of the diagnoses may be sequenced first." "When the physician has documented what appears to be a current diagnosis in the body of the record, but has not included the diagnosis in the final diagnostic statement, the physician should be asked whether the diagnosis should be added." (Source Coding Clinic 2 QTR90. p3-4) JEANNA
== END 2020-09-21 15:54 | DRG 175 ==
LOC: ED 12:51 → SUATTDRO 15:22 → EDINP 16:01 → 2E 19:24 → 3E 09-19 05:01